=== PATIENT | male | born 1990 | race Caucasian/White ===

== ENCOUNTER 2021-05-23 20:52 | Emergency (ER) | payer MEDICAID, SELFPAY ==
[2021-05-23 20:54] VITALS: BP 135/84; PULSE 79; RESP 16; TEMP 36.6; O2SAT 98; BMI 31.4
[2021-05-23 21:25] LABS: Amphetamine Screen Urine Not Detected (Not Detect); Barbiturates, Urine Not Detected (Not Detect); Benzodiazepines Screen Urine Not Detected (Not Detect); Cannabinoid Screen Urine POSITIVE (Not Detect); Cocaine Screen Urine POSITIVE (Not Detect); Fentanyl, urine POSITIVE (Not Detect); Opiate Screen Urine Not Detected (Not Detect); Phencyclidine Screen Urine Not Detected (Not Detect)
--- NOTE | 2021-05-23 22:16 | PC.NURSE ---
2215 CALLED NOT IN MWR.
--- NOTE | 2021-05-23 23:55 | PC.NURSE ---
PT WAS CALLED EARLIER X3. PT NOT IN MWR. PT RECALLED AND PT SLEEPING IN CHAIR. THIS NURSE WALKED UP TO PATIENT CALLED HIM IN A LOUD VOICE SEVERAL TIMES. PT DID NOT WAKE UP. TAPPED PT FOOT AND CALLED HIM, PT DID WAKE UP. PT AMB TO [facility] WITH STEADY GAIT. RESP UNLABORED. PT STATES IN PROGRAM AND TESTED POSITIVE FOR SEVERAL DRUGS. PT DENIES TAKING ANYTHING BUT MARIJUANA. STATES IS IN RESIDENTIAL PROGRAM [facility].
--- NOTE | 2021-05-24 00:05 | ED.MEDCLEAR ---
HPI - Medical Clearance General Chief complaint: Medical Clearance Stated complaint: Medical Clearance Time Seen by Provider: 05/23/21 22:05 Source: patient Mode of arrival: ambulatory Limitations: no limitations History of Present Illness HPI Narrative: 31-year-old male came in for medical clearance. Patient currently lives in an post incarceration residential program, patient admitted that he smoked marijuana with his friend, when they did a urine testing at the program they found him positive for multiple substances and the ask him to come to the hospital for medical clearance. Patient otherwise has no symptoms. Related Information Allergies Allergy/AdvReac Type Severity Reaction Status Date / Time No Known Allergies Allergy Unverified 01/31/20 16:09 Review of Systems Review of Systems: All other systems are reviewed and are negative Constitutional: Reports as per HPI and Reports no additional constitutional complaints Eyes: Reports as per HPI and Reports no additional eye complaints Reports system reviewed and no additional complaints, except as documented Cardiovascular: Reports as per HPI and Reports no additional cardiovascular complaints Respiratory: Reports as per HPI and Reports no additional respiratory complaints Gastrointestinal: Reports as per HPI and Reports no additional gastrointestinal complaints Genitourinary: Reports no additional female genitourinary complaints Musculoskeletal: Reports no additional musculoskeletal complaints Skin/Breast: Reports system reviewed and no additional complaints, except as docu Psychiatric: Reports no additional psychiatric complaints Endocrine: Reports no additional endocrine complaints Hematologic/Lymphatic: Reports no additional hematologic/lymphatic complaints Allergic/Immunologic: Reports no additional allergic/immunologic complaints Reports system reviewed and no additional complaints, except as documented and Reports Abnormal speech present [facility] Past Medical History Medical History (Updated 05/24/21 @ 00:11 by Torsten Tabares MD) Drug abuse Social History Social History Advance Directives: No Advance Directives Information Provided: No Physical Exam Vital Signs: Vital Signs: Last Vital Signs Temp 97.9 F 05/23/21 20:54 Pulse 79 05/23/21 20:54 Resp 16 05/23/21 20:54 BP 135/84 05/23/21 20:54 Pulse Ox 98 05/23/21 20:54 BMI result Body Mass Index 31.4 Vital signs have been reviewed as appeared to be correct. Blood pressure normal. Heart rate normal. Respiration rate normal. Temperature normal. Oxygen saturation normal. Appearance: Alert. Oriented X3. No acute distress. Head: Normal external exam. Normocephalic. Atraumatic. No Andrade signs noted. No raccoon eyes noted Eyes: PERRLA. EOMI. Conjunctiva and sclera normal. Eyelids normal. ENT: TM's Normal. Pharynx normal. Uvula midline. Moist mucous membranes. No trismus noted. No drooling noted. No muffled voice noted. Neck: Normal inspection. Neck supple. FROM. No adenopathy. Thyroid Normal. No meningeal signs. No neck mass noted. CVS: Normal heart rate and rhythm. Heart sound normal. No murmurs noted. Pulses normal throughout. Respiratory: No respiratory distress. Painless inspiration. Breath sounds normal. No wheezes/rales/rhonchi noted. Chest nontender. No accessory muscle usage noted or decreased air movement noted. Abdomen: Soft and nontender. Bowel sounds normal in all 4 quadrants. No distention noted. No organomegaly noted. No visible injury noted. Back: No CVA tenderness. Full range of motion noted. Skin: Skin warm and dry. Normal skin color. Normal skin turgor. No rashes/lesions/lacerations noted. Extremities: No lower extremity edema. Extremities exhibit normal range of motion. Extremities nontender. Neuro: Oriented X 3. Cranial nerve exam: II-XII are grossly intact No motor deficit. No sensory deficit. Reflexes normal. Course Course Course Narrative: Assessment and plan. 31-year-old male here for medical clearance, unfortunately urine toxicology is positive for fentanyl, cocaine, cannabinoids. MDM - Medical Clearance Lab Data Attestation: I reviewed the patient's lab results. Labs: Lab Results 05/23/21 Range/Units 21:04 Urine Opiates Screen Not Detected (Not Detect) Urine Fentanyl Screen POSITIVE H (Not Detect) Ur Barbiturates Screen Not Detected (Not Detect) Ur Phencyclidine Scrn Not Detected (Not Detect) Ur Amphetamines Screen Not Detected (Not Detect) U Benzodiazepines Scrn Not Detected (Not Detect) Urine Cocaine Screen POSITIVE H (Not Detect) U Marijuana (THC) Screen POSITIVE H (Not Detect) Discharge Plan Discharge Clinical Impression: Substance abuse Patient Disposition: Home, Self-Care Instructions: Polysubstance Abuse (ED) Referrals: [facility] [Primary Care Provider] - 2 days
== END 2021-05-24 00:34 | disposition home or self-care (01) ==
PROVIDERS: Emergency Provider Emergency Medicine
DX: Z02.83 Encounter for blood-alcohol and blood-drug test (principal); R78.2 Finding of cocaine in blood; R78.5 Finding of other psychotropic drug in blood
CPT/HCPCS: 80307; 99283; 99284

== ENCOUNTER 2021-07-14 07:36 | Emergency (ER) | payer MEDICAID, SELFPAY ==
[2021-07-14 07:58] VITALS: BP 140/80; PULSE 54; RESP 18; TEMP 37; O2SAT 98; BMI 31.1
--- NOTE | 2021-07-14 08:30 | ED.BACK ---
HPI - Back Pain/Injury General Chief Complaint: Back Pain/Injury Stated Complaint: lower back pain/ diff breathing Time Seen by Provider: 07/14/21 08:30 Source: patient Mode of arrival: ambulatory Limitations: no limitations History of Present Illness HPI Narrative: 31 y/o male presents to the ER with right sided low back pain for the last 2 days after he did heavy lifting at work. 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 He reports pain started after lifting and twisting heavy material. He has had pain with movement since. No radiation of the pain. No numbness, weakness, tingling. No urinary or bowel incontinence. MD elicited complaint: back pain and back injury Onset (ago): day(s) (2) Timing: constant Severity: moderate Similar Symptoms Previously: No Quality: aching and spasming Location: right lower back Radiation: none Exacerbating factors: movement and coughing/sneezing Relieving factors: immobilization Context: while lifting and turning/twisting Associated symptoms: denies other symptoms Work related injury: Yes Related Data Previous Rx's Medication Instructions Recorded cyclobenzaprine 10 mg tablet 10 mg PO TID PRN #10 tab 07/14/21 lidocaine 5 % topical patch 1 patch TOPICAL DAILY #15 ea 07/14/21 naproxen 500 mg tablet 500 mg PO BID PRN #20 tab 07/14/21 Allergies Allergy/AdvReac Type Severity Reaction Status Date / Time No Known Allergies Allergy Verified 07/14/21 07:58 Review of Systems Review of Systems: Constitutional: No Fever, No Chills Cardiovascular: No Chest Pain, No SOB Gastrointestinal: No Nausea, No Vomiting, No abdominal Pain Genitourinary: No urinary incontinence Musculoskeletal: No joint pain, +Myalgias Skin: No Skin Lesions, No rash Neuro: No Weakness, No Numbness Heme/Lymph: No Bruising PMFSH Past Medical History Medical History (Updated 07/14/21 @ 08:30 by ZHEN Vela) Drug abuse Social History Social History Advance Directives: No Advance Directives Information Provided: No Physical Exam Vital Signs: Vital Signs: Last Vital Signs Temp 98.6 F 07/14/21 07:58 Pulse 54 07/14/21 07:58 Resp 18 07/14/21 07:58 BP 140/80 H 07/14/21 07:58 Pulse Ox 98 07/14/21 07:58 BMI result Body Mass Index 31.1 Appearance: Alert. Oriented X3. No acute distress. HEENT: normal inspection CVS: Normal heart rate and rhythm. Pulses normal. Respiratory: No respiratory distress. Skin: Skin warm and dry. Normal skin color. Normal skin turgor. No rashes. Back: right lower and middle lumbar soft tissue tenderness, no midline tenderness. negative straight leg raise test. Extremities: atraumatic x4, normal inspection Neuro: Oriented X 3. No motor deficit. No sensory deficit. Ambulates with slow but steady gait Course Course Course Narrative: 31 yo male presenting with right lower back pain after heavy lifting and twisting at work 2 days ago. No red flag symptoms of LBP. Exam consistent with lumbar strain. Will treat with NSAID, muscle relaxer and lidoderm. Work note provided per request. Stable for d/c home with supportive care. Discharge Plan Discharge Clinical Impression: Strain of lumbar region Patient Disposition: Home, Self-Care Instructions: Low Back Strain (ED), Lower Back Exercises (ED) Additional Instructions: Your pain is due to muscle strain and spasm. Rest. No strenuous activity. No bending, lifting or twisting. Use ice several times per day for 20 minutes at a time for the next 48 hours and then change to heat. Take medications as prescribed to help with pain and discomfort. Follow up with your Primary Care Doctor this week. If your pain worsens, if you develop new numbness, tingling, weakness, loss of function or incontinence call 911 or come back to the ER right away for evaluation. Prescriptions: New cyclobenzaprine 10 mg tablet 10 mg PO TID PRN (Reason: muscle spasm) Qty: 10 0RF lidocaine 5 % adhesive patch,medicated 1 patch topical DAILY Qty: 15 0RF Rx Instructions: leave on most painful area for up to 12 hrs naproxen 500 mg tablet 500 mg PO BID PRN (Reason: pain) Qty: 20 0RF Referrals: [facility] [Provider Group] - 3 days Stand Alone Forms: Work/School Release
== END 2021-07-14 08:53 | disposition home or self-care (01) ==
PROVIDERS: Emergency Provider Emergency Medicine
DX: S39.012A Strain of muscle, fascia and tendon of lower back, initial encounter (principal); R06.02 Shortness of breath; X50.0XXA Overexertion from strenuous movement or load, initial encounter; X50.3XXA Overexertion from repetitive movements, initial encounter; Y93.9 Activity, unspecified; Y92.9 Unspecified place or not applicable; Y99.0 Civilian activity done for income or pay; Z79.899 Other long term (current) drug therapy
CPT/HCPCS: 99282; 99283

== ENCOUNTER 2023-02-11 14:47 | Outpatient (REF) | payer OTHER, SELFPAY ==
[2023-02-11 17:41] LABS: Estimated Average Glucose 100 mg/dL; Hemoglobin A1c % 5.1 % (<6.0)
[2023-02-11 19:31] LABS: Anion Gap 18 (12-20); Blood Urea Nitrogen 9 mg/dL (9-16); Calcium 9.5 mg/dL (8.4-10.2); Carbon Dioxide 21 mmol/L (22-29); Chloride 106 mmol/L (96-108); Cholesterol 151 mg/dL (<200); Estimated Glomerular Filt Rate > 60; HDL Cholesterol 40 mg/dL (>40); LDL Cholesterol Calculated 61 mg/dL (<100); Potassium 3.5 mmol/L (3.3-5.1); Sodium 141 mmol/L (135-145); Triglycerides 253 mg/dL (<150)
[2023-02-11 19:38] LABS: Glucose Fasting 40 mg/dL (60-99)
[2023-02-11 19:39] LABS: TSH reflex Free T4 1.01 uIU/mL (0.32-4.0)
[2023-02-12 03:29] LABS: Syphilis Screen Nonreactive (Nonreactive)
[2023-02-12 03:35] LABS: HBc Num1 0.61 S/CO (0.00-0.79); HBsAGNum1 0.37 S/CO (0.00-0.99); Hepatitis B Core Antibody Nonreactive (Nonreactive); Hepatitis B Surface Antigen Negative (Negative)
[2023-02-12 04:53] LABS: CT PCR NOT DETECTED (Not Detect.); NG PCR NOT DETECTED (Not Detect.)
== END 2023-02-11 14:48 | disposition home or self-care (01) ==
LOC: HO.CHCLDS 14:47
PROVIDERS: Visit Provider Family Medicine
DX: R42 Dizziness and giddiness (principal); E66.9 Obesity, unspecified; Z11.3 Encounter for screening for infections with a predominantly sexual mode of transmission
CPT/HCPCS: 0353U; 80048; 80061; 83036; 84443; 86704; 86780; 87340

== ENCOUNTER → 2024-05-25 10:16 | Outpatient (BNVA) | payer SELFPAY | PROVIDERS: Visit Provider Physician Assistant | DX: Z02.79 Encounter for issue of other medical certificate (principal) ==

== ENCOUNTER 2024-07-16 09:40 | Outpatient (REF) | payer MEDICAID, SELFPAY ==
--- OUTSIDE RECORDS SUMMARY | 2024-07-16 10:47 | XMS_ITS | Encounter Summary ---
Author Organization [employer] Address [address] [place] [address] Care Team Providers Care Stock Control Clerk Name Role Phone Taylor Iglesias MD Primary Care Provider [phone] Reason for Visit * Reason Onset Date Comments Med Refill 07/11/2024 Encounter Details Date Type Department Care Team (Late st Contact Info) Description 07/11/2024 Refill [facility] [address] [place] [address] Kate Joshi, RN Opioid abuse (CMS/[facility]) Social History Tobacco Use Types Packs/Day Years Used Date Smoking Tobacco: Every Day Cigarettes Smokeless Tobacco: Never Alcohol Use Standard Drinks/Week Comments Never 0 (1 standard drink = 0.6 oz pur e alcohol) Depression Answer Date Recorded Patient Health Questionnaire-9 Score 13 05/25/2024 Patient Health Questionnaire-9 Score 13 05/25/2024 Last PHQ-9: Questionnaire Data Not on file 0 05/25/2024 Housing Stability Answer Date Recorded What is your housing situation today? I do not have housing (Staying with others, in a hotel, in a mcc, living outside on the street, on a beach, in a car, or in a park 02/21/[address] you li ve. Do you have problems with any of the following? None of the above 02/21/2023 Food Insecurity Answer Date Recorded Within the past 12 months, y ou worried that your food would run out before you got money to buy more: Often true 02/28/2023 Within the past 12 months,th e food you bought just didn't last and you didn't have enough money to get more: Often true Transportation Answer Date Recorded In the past 12 months, has l ack of transportation kept you from medical appts, meetings, work or from getting things needed for daily living? No 02/28/2023 Utilities Answer Date Recorded In the past 12 months, has t he electric, gas, oil or water company threatened to shut off services in your home? No 02/28/2023 Depression Answer Date Recorded Patient Health Questionnaire-2 Score 2 05/25/2024 Sex and Gender Information Value Date Recorded Sex Assigned at Male 03/15/2022 10:22 AM EDT Legal Sex Male 10:22 AM EDT Gender Identity Male 08/08/2023 8:50 AM EDT Sexual Orientation Straight 08/08/2023 8: 50 AM EDT documented as of this encounter Plan of Treatment Upcoming Encounters Date Type Department Care Team (Late st Contact Info) Description 07/27/2024 11:15 AM EDT Telemedicine [facility] [address] [place] [phone] Name, MD Jamie [address] [place] [phone] 09/10/2024 9:00 AM EDT Office Visit [facility] [address] [place] [address] Javy Dennis MD [address] [place] [phone] documented as of this encounter Visit Diagnoses Diagnosis Opioid abuse (CMS/HCC) Nondependent opioid abuse, unspecified documented in this encounter Additional Health Concerns Assessment Noted Time PHQ-9 Depression Total Score: 13 025 9:35 AM EST documented as of this encounter Care Teams Stock Control Clerk Relationship Specialty Start Date End Date Taylor Iglesias MD [address] [place] [phone] PCP - General Family Medicine 12/29/22 documented as of this encounter
--- OUTSIDE RECORDS SUMMARY | 2024-07-16 10:47 | XMS_ITS | Encounter Summary ---
Author Organization [employer] Address [address] [place] [address] Care Team Providers Care Fan Runner Name Role Phone Taylor Iglesias MD Primary Care Provider [phone] Encounter Details Date Type Department Care Team (Latest Contact Info) Description 07/16/2024 Travel Social History Tobacco Use Types Packs/Day Years [...] with others, in a hotel, in a fci, living outside on the street, on a [...] Info) Description 07/27/2024 11:15 AM EDT Telemedicine [facility] [address] [place] [phone] Name, MD Jamie [address] [place] [phone] 09/10/2024 9:00 AM EDT Office Visit [facility] [address] [place] [address] Javy Dennis MD [address] [place] [phone] documented as of this encounter Visit Diagnoses Not on filedocumented in this encounter Additional Health Concerns Assessment Noted Time PHQ-9 Depression Total Score: 13 025 9:35 AM EST documented as of this encounter Care Teams Fan Runner Relationship Specialty Start Date End Date Taylor Iglesias MD [address] [place] [phone] PCP - General Family Medicine 12/29/22 documented as of this encounter
--- OUTSIDE RECORDS SUMMARY | 2024-07-16 10:47 | XMS_ITS | Encounter Summary ---
Author Organization [employer] Address [address] [place] [address] Care Team Providers Care Gas Utility Worker Name Role Phone Taylor Iglesias MD Primary Care Provider [phone] Reason for Visit * Reason Comments OBAT F/U Encounter Details Date Type Department Care Team ([facility] st Contact Info) Description 07/16/2024 9:00 AM EST Office Visit [facility] [address] [place] [address] Javy Dennis MD [address] [place] [id number] Opioid type dependence, continuous (CMS/HCC) (Primary Dx) Social History Tobacco Use Types Packs/Day Years [...] with others, in a hotel, in a jail, living outside on the street, on a [...] AM EDT documented as of this encounter Progress Notes * Javy Dennis MD - 07/16/2024 9:00 AM EST Patient here today for Opioid Dependence RV Patient on current Suboxone dose of 16/4mg on a 8-week schedule Patient reports taking medication as prescribed, no cravings or adverse effects Pt has been in the program for 3 years 4 months. Induction date: 03/16/2021 PCP appt 02/08/23. 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 Met with today Started a GED program; will also pursue CDL Has two children Chrisitan (1 year) and Jamie (2 years) Suboxone dosing schedule of 16/4mg daily and management of side effects reviewed Recovery support, harm reduction, and behavioral health attendance reviewed Patient expressed understanding and agreement with continuing plan of care TODAY OBAT VISIT 07/16/2024 UTOX: POS BUP, THC NEG FOR ALL OTHER SUBSTANCES Patient presents for OUD OBAT appointment Overall doing well since his detox in 08/2021 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 The patient is not nervous/anxious. Physical Exam Constitutional: Appearance: Normal appearance. Pulmonary: Effort: Pulmonary effort is normal. Neurological: Mental Status: He is alert. Psychiatric: Mood and Affect: Mood normal. Behavior: Behavior normal. Porter was seen today for obat f/u . Diagnoses and all orders for this visit: Opioid type dependence, continuous (CMS/[facility]) (Primary) - POCT MIN-14 Urine Drug Screen Patient presents for a routine OUD OBAT visit Discussed treatment options for opioid dependence Patient is tolerating current treatment of Buprenorphine/Naloxone SL Discussed behavioral modification and accessing services Counseling provided with a focus on support system, tools for achieving/maintaining recovery Reviewed barriers for these goals Discussed strategies to address when faced situations that may trigger use Continue with current visit schedule Narcan use discussed Mass[place]MP reviewed Met with today Reviewed risk assessment for family planning, STI and PrEP Follow up in 8 weeks This information has been disclosed to you from records protected by federal confidentiality rules (42 CFR Part 2). The federal rules prohibit you from making any further disclosure of information inthis record that identifies a patient as having or having had a substance use disorder either directly, by reference to publicly available information, or through verification of such identification by another person unless further disclosure is expressly permitted by the written consent of the individual whose information is being disclosed or as otherwise permitted by (see2.3.1). The federal rules restrict any use of the information to investigate or prosecute with regard to a crime any patient with a substance use disorder, except as provided at 2.12??(5) and 2.65. documented in this encounter Plan of Treatment Upcoming Encounters Date Type Department Care Team (Late st Contact Info) Description 07/27/2024 11:15 AM EDT Telemedicine [facility] [address] [place] [address] Name, MD Jamie [address] [place] [address] 09/10/2024 9:00 AM EDT Office Visit [facility] [address] [place] [address] Javy Dennis MD [address] [place] [address] documented as of this encounter Procedures Procedure Name Priority Date/Time Associated Diagnosis Comments POCT MIN-14 URINE DRUG SCREEN Routine 07/16/2024 9:17 AM EST Opioid type dependence, continuous (CMS/HCC) documented in this encounter Results * POCT MIN-14 Urine Drug Screen (07/16/2024 9:17 AM EST) THC Positive Cocaine Screen, Urine Negative Opiate Screen, Urine Negative Methamphetamine Screen Urine Negative Amphetamine Screen, Urine Negative Benzodiazepines Screen, Urine Negative Barbiturate Screen, Urine Negative Methadone Screen, Urine Negative Buprenophine Screen, Urine Positive TCA, Urine Negative MDMA Urine Negative ng/mL Oxycodone Screen, Urine Negative Phencyclidine (PCP), Urine Negative Propoxyphene, Urine Negative Urine Urine specimen obtained by clean catch procedure / Unknown 07/16/2024 9:17 AM EST us Javy Dennis MD POINT OF CARE TEST ENTER/EDIT OR DERABLES Final Result documented in this encounter Visit Diagnoses Diagnosis Opioid type dependence, continuous (CMS/HCC)- Primary Opioid type dependence, continuous documented in this encounter Additional Health Concerns Assessment Noted Time PHQ-9 Depression Total Score: 13 01/2 025 9:35 AM EST documented as of this encounter Care Teams Gas Utility Worker Relationship Specialty Start Date End Date Taylor Iglesias MD [address] [place] [phone] PCP - General Family Medicine 12/29/22 documented as of this encounter
--- OUTSIDE RECORDS SUMMARY | 2024-07-16 10:48 | XMS_ITS | Encounter Summary ---
Author Organization [employer] Address [address] [place] [address] Care Team Providers Care Wet Char Conveyor Tender Name Role Phone Taylor Iglesias MD Primary Care Provider [phone] Reason for Referral * Neurology (Routine) - Authorized Specialty Diagnoses / Procedures Referred By Contac t Referred To Contact Diagnoses Right hand paresthesia Left hand pain Procedures Nerve conduction test NameJamie MD [address] [place] [address] Phone: tel: fax: [address] Phone: tel: fax: Referral ID Status Reason Start Date Expiration Date V isits Requested Visits Authorized [id number] Authorized 07/09/2024 07/09/2025 1 1 Reason for Visit * Reason Comments hand pain and paresthesia Encounter Details Date Type Department Care Team (Late st Contact Info) Description 07/09/2024 1:15 PM EST Office Visit [facility] [address] [place] [address] [phone] Name, MD Jamie [address] [place] [address] [phone] Right hand paresthesia; Left hand pain Social History Tobacco Use Types Packs/Day Years [...] with others, in a hotel, in a senior living, living outside on the street, on a [...] AM EDT documented as of this encounter Last Filed Vital Signs Vital Sign Reading Time Taken Comments Blood Pressure 142/76 07/09/2024 1:19 PM EST Pulse 77 07/09/2024 1:19 PM EST Temperature 36.4 ??C (97.5 ??F) 07/09/2024 1:19 PM ES T Respiratory Rate 18 07/09/2024 1:19 PM EST Oxygen Saturation 98% 07/09/2024 1:19 PM EST Inhaled Oxygen Concentration - - Weight 108 kg (237 lb 3.2 oz) 07/09/2024 1:19 PM EST Height - - Body Mass Index 32.17 03/20/2024 1:53 PM EST documented in this encounter Progress Notes * Jamie Charlton MD - 07/09/2024 1:15 PM EST Subjective Patient ID: Porter Hinton is a 34 y.o. male who presents for hand pain and paresthesia. Patient comes complaining of bilateral hand pain and paresthesias. Symptoms are worse in the right hand. There is no history of trauma. He was recently evaluated at urgent care facility with x-rays of the right hand that were normal. He was prescribed NSAIDs without any symptomatic improvement. Symptoms are exacerbated by movements of the right hand. Review of Systems Constitutional: Negative for chills, fatigue and fever. HENT: Negative for sore throat. Respiratory: Negative for cough, chest tightness and shortness of breath. Cardiovascular: Negative for chest pain, palpitations and leg swelling. Gastrointestinal: Negative for abdominal pain and blood in stool. Musculoskeletal: See HPI Visit Vitals BP (!) 142/76 Pulse 77 Temp 97.5 ??F (36.4 ??C) (Temporal) Resp 18 Wt 237 lb 3.2 oz (108 kg) SpO2 98% BMI 32.17 kg/m?? Smoking Status Every Day BSA 2.34 m?? Objective Physical Exam Constitutional: General: He is not in acute distress. Appearance: He is not toxic-appearing. Cardiovascular: Rate and Rhythm: Normal rate and regular rhythm. Pulmonary: Effort: Pulmonary effort is normal. No respiratory distress. Musculoskeletal: Comments: Phalen's test is positive in both wrists. Assessment/Plan Diagnoses and all orders for this visit: Right hand paresthesia Comments: I suspect symptoms are secondary to carpal tunnel syndrome. I will refer the patient to nerve conduction study. Further recommendation based on the results. Left hand pain documented in this encounter Plan of Treatment Upcoming Encounters Date Type Department Care Team (Late st Contact Info) Description 07/27/2024 11:15 AM EDT Telemedicine [facility] MED[facility]INE [address] [place] [address] Name, MD Jamie [address] [place] [address] 09/10/2024 9:00 AM EDT Office Visit [facility] [address] [place] [address] Javy Dennis MD [address] [place] [address] Scheduled Orders Name Type Priority Associated Diagnoses Orde r Schedule Nerve conduction test Neurology Routine Right hand paresthesia Left hand pain Expected: 07/09/2024 (Approximate), Expires: 07/09/2025 documented as of this encounter Visit Diagnoses Diagnosis Right hand paresthesia Disturbance of skin sensation Left hand pain Pain in soft tissues of limb documented in this encounter Additional Health Concerns Assessment Noted Time PHQ-9 Depression Total Score: 13 025 9:35 AM EST documented as of this encounter Care Teams Wet Char Conveyor Tender Relationship Specialty Start Date End Date Taylor Iglesias MD [address] [place] [address] PCP - General Family Medicine 12/29/22 documented as of this encounter
--- OUTSIDE RECORDS SUMMARY | 2024-07-16 10:48 | XMS_ITS | Clinical Summary ---
Author Organization [employer] Address [address] [place] [address] Care Team Providers Care Card Filer Name Role Phone Taylor Iglesias MD Primary Care Provider [phone] Allergies No known active allergies Medications * This document contains information received from the source organization and may not represent a complete record from that organization. naloxone (Narcan) 4 mg/0.1 mL nasal spray Administer 0.1 mL into affected nostril(s). 021 Active docusate sodium (Colace) 100 MG capsule Take 100 mg by mouth if needed for constipation. Active ciclopirox (Penlac) 8 % solution Apply topically at bedtime. 6 mL 3 023 Active cyclobenzaprin e (Flexeril) 10 MG tablet Take 1 tablet (10 mg) by mouth if needed at bedtime for muscle spasms. 30 tablet 3 023 Active Blood Pressure Monitor kit Check blood pressure once daily and as needed 1 kit 023 Active hydrocortisone (Anusol-HC) 25 MG suppository Insert once or twice daily. Do not use longer than 1 week. 12 suppository 023 Active Diclofenac Sodium 1 % gel Apply to affected area once or twice daily as needed for pain 150 g 3 024 Active albuterol (ProAir HFA) 108 (90 Base) MCG/ACT inhaler Inhale 2 puffs every 4 (four) hours. 18 g 1 024 Active amphetamine-de xtroamphetamin e XR (Adderall XR) 10 MG 24 hr capsule Take 1 capsule (10 mg) by mouth in the morning. Do not crush or chew. 30 capsule Active cetirizine (ZyrTEC) 10 MG tablet Take 1 tablet (10 mg) by mouth Once per day. 90 tablet 3 Active fluticasone (Flonase) 50 MCG/ACT nasal spray Administer 1-2 sprays into each nostril Once per day. Shake gently. Before first use, prime pump. After use, clean tip and replace cap. 16 g 2 024 2024 Active Suboxone 8-2 MG SL filmIndication s:Opioid abuse (CMS/HCC) Place 2 Film under the tongue Once per day. Do not start before July 16, 2024. 56 Film 1 025 2024 Active Suboxone 8-2 MG SL filmIndication s:Opioid abuse (CMS/HCC) Place 2 Film under the tongue Once per day. 56 Film 1 024 2024 Discontinued(R eorder (will not trigger notification to Pharmacy)) Active Problems Problem Noted Date Diagnosed Date Current moderate episode of major depressive disorder without prior episode 05/25/2024 Elevated blood pressure read ing in office without diagnosis of hypertension 03/01/2023 Assessment & Plan (08/26/2023 11:26 AM EDT): -Goal BP < 140/90 per JNC-8 and < 130/80 per ACC/AHA guideline (Treatment threshold >= 140/90 ) -Borderline BP -Continue working on lifestyle modifications -Recommended self-monitoring BP. -Follow up in 6 mo, sooner if any problem arises Assessment & Plan (03/03/2023 5:04 AM EDT): -Goal BP < 140/90 per JNC-8 and < 130/80 per ACC/AHA guideline (Treatment threshold >= 140/90 ) -2nd check was normal -Continue working on lifestyle modifications -Recommended self-monitoring BP. -Follow up in 6 mo, sooner if any problem arises Attention deficit hyperactiv ity disorder (ADHD), predominantly inattentive type 02/14/2023 Assessment & Plan (03/25/2024 6:45 PM EST): - check the status of Adderall, whether patient needs a PA Assessment & Plan (08/26/2023 11:27 AM EDT): - check the status of Adderall, whether patient needs a PA Assessment & Plan (03/03/2023 5:06 AM EDT): - agreed to restart stimulant - Rx Adderall XR 10 mg daily, consider titration to effective dose - Advised to take after meal to avoid poor PO intake and another hypoglycemic episode Assessment & Plan (02/14/2023 4:13 AM EDT): - Hx of ADHD Tx with Concerta - Will discuss with OBAT team about pharmacological treatment for Concerta - Consider referring Jim since pt has both EVGENY and Concerta Obesity 02/14/2023 EVGENY (generalized anxiety disorder) 01/04/2023 Assessment & Plan (03/25/2024 6:44 PM EST): - continue working with Chris Chi - consider trying medication for ADHD Assessment & Plan (02/14/2023 4:11 AM EDT): - continue working with Chris Chi - consider trying medication for ADHD Assessment & Plan (01/04/2023 9:32 AM EDT): Assessment: Patient with raising thought, irritability, fearfulness, muscle tension, sleep disturbance, headaches, persistent worry, restlessness, and indecisiveness. 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 Patient will benefit from keeping connecting with - and IB follow up for support. At this time Porter Hinton meets criteria for Visit Diagnoses: Problem List Items Addressed This Visit Other Opioid abuse, in remission ([facility]/HCC) EVGENY (generalized anxiety disorder) Patient ready to address current needs Yes Strengths include willing to seek support PLAN: 1. Follow up with [facility]: Recommended for follow-up: during OBAT appts 2. Patient goal is to improve mental health and functioning 3. Behavioral Recommendations a. Connecting with [facility] b. [facility] follow up c. Use of coping skills provided Mild intermittent asthma 04/23/2022 Assessment & Plan (08/26/2023 11:25 AM EDT): Continue albuterol prn Assessment & Plan (02/08/2023 11:12 AM EDT): Continue albuterol prn History of smoking 04/24/2021 Assessment & Plan (03/25/2024 6:44 PM EST): - currently E-cigarettes - discussed that E-cigarettes are shown to be harmful as well; pt is aware and is trying to reduce its use Assessment & Plan (02/14/2023 4:10 AM EDT): - currently E-cigarettes - discussed that E-cigarettes are shown to be harmful as well; pt is aware and is trying to reduce its use Uncomplicated opioid dependence 04/24/2021 Assessment & Plan (03/25/2024 6:44 PM EST): - continue OBAT with Dr. Dennis and CRS team in [place] Assessment & Plan (08/26/2023 11:27 AM EDT): - continue OBAT with Dr. Dennis and CRS team in [place] Assessment & Plan (03/03/2023 5:05 AM EDT): - continue OBAT with Dr. Dennis and CRS team in [place] Assessment & Plan (01/04/2023 9:32 AM EDT): Assessment: Patient with raising thought, irritability, fearfulness, muscle tension, sleep disturbance, headaches, persistent worry, restlessness, and indecisiveness. 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 Patient will benefit from keeping connecting with [facility] and [facility] follow up for support. At this time Porter Hinton meets criteria for Visit Diagnoses: Problem List Items Addressed This Visit Other Opioid abuse, in remission (CMS/[facility]) EVGENY (generalized anxiety disorder) Patient ready to address current needs Yes Strengths include willing to seek support PLAN: 1. Follow up with [facility]: Recommended for follow-up: during OBAT appts 2. Patient goal is to improve mental health and functioning 3. Behavioral Recommendations a. Connecting with [facility] b. [facility] follow up c. Use of coping skills provided Chronic low back pain 04/24/2021 Assessment & Plan (02/08/2023 11:07 AM EDT): -Continue chiropractic treatment -Rx Muscle relaxant Encounters * This document contains information received from the source organization and may not represent a complete record from that organization. Date Type Department Care Team Description 07/16/2024 9:00 AM EST Office Visit [facility] & PEDS [address] [place] [address] Javy Dennis MD Opioid type dependence, continuous (CMS/HCC) (Primary Dx) 07/16/2024 Travel 07/11/[address] [address] Kate Joshi RN Opioid abuse ([facility]) 07/09/2024 1:15 PM EST Office Visit [address] [phone] Jamie Charlton MD Right hand paresthesia; Left hand pain 07/09/2024 Travel 07/09/[address] [address] Taylor Iglesias MD Nurse Triage 06/28/[address] [phone] Renay Renteria MA chart prep 06/18/2024 Patient Outreach [address] [phone] Dejan Fuentes Recovery Supports 06/11/2024 Patient Outreach [address] [address] Dejan Fuentes [facility] 06/08/2024 Patient Outreach [facility] [address] [place] [phone] Dejan Fuentes Recovery Supports 06/06/2024 Patient Outreach [facility] [address] [place] [phone] Dejan Fuentes Recovery Supports 05/28/2024 Patient Outreach [facility] [address] [place] [phone] Dejan Fuentes Recovery [facility] 05/28/2024 Telephone [facility] [address] [place], [place] [phone] Javy Dennis MD 05/21/2024 9:00 AM EST Office Visit [facility] [address] [place], [place] [phone] Jayv Dennis MD Opioid type dependence, continuous (CMS/HCC) (Primary Dx) 05/21/2024 Patient Outreach [facility] [address] [place] [phone] Dejan Fuentes [facility] 05/21/2024 Travel 05/14/2024 Refill [facility] [address] [place] [address] Fabrizio Jewell RN Opioid abuse ([facility]) from Last 3 Months Immunizations Name Administration Dates Next Due Hep A, Adult 02/08/2023,2021 Hep B, adult 08/09/2023,03/08/2023,02/08/2023 Influenza injectable quadriv alent preservative free 02/07/2023,03/15/2022,04/24/2021 Influenza, seasonal, injecta ble, preservative free 03/20/2024 Moderna Covid-19 Vaccine 12+ 11/03/2021,01/21/20 21,12/09/2020 Tdap 04/24/2021 Family History Medical History Relation Name Comments Addiction problem Brother Asthma Brother Asthma Mother Stroke Mother Asthma Sister Relation Name Status Comments Brother Mother Sister Social History Tobacco Use Types Packs/Day Years Used Date Smoking Tobacco: Every Day Cigarettes Smokeless Tobacco: Never Tobacco Cessation:Ready to Q uit: Not Asked; Counseling Given: Not Answered Alcohol Use Standard Drinks/Week Comments Never 0 [...] with others, in a hotel, in a halfway, living outside on the street, on a [...] Orientation Straight 08/08/2023 8: 50 AM EDT Last Filed Vital Signs Vital Sign Reading [...] 3.2 oz) 07/09/2024 1:19 PM EST Height 182.9 cm (6') 03/20/2024 1:53 PM EST Body Mass Index 32.17 03/20/2024 1:53 PM EST Plan of Treatment Upcoming Encounters Date Type Department Care Team (Late st Contact Info) Description 07/27/2024 11:15 AM EDT Telemedicine [facility] [address] [place], [place] [phone] Name, MD Jamie [address] [place], [place] [phone] 09/10/2024 9:00 AM EDT Office Visit [facility] [address] [place], [place] [phone] Javy Dennis MD [address] [place], [place] [phone] Health Maintenance Due Date Last Done Comments Alcohol/Substance Use Screening 2003 Family Planning (PISQ) 2006 Pneumococcal Vaccine: Pediatrics (0 to 5 Years) and At-Risk Patients (6 to 49) Years) (1 of 2 - PCV) 2010 COVID-19 Vaccine ( season) 2024 11/03/2021, 01/20/2021, 12/09/2020 SDOH Screening 02/02/2024 02/01/2023 Depression Monitoring (PHQ-9) 11/22/2024 05/25/2024, 05/25/2024 Tobacco Screening 03/20/2025 03/20/2024 Depression Screening 05/25/2025 05/25/2024, 05/25/19 25 Lipid Panel 02/12/2028 02/11/2023 DTaP/Tdap/Td Vaccines (2 - Td or Tdap) 04/24/2031 04/24/2021 Zoster Vaccines (1 of 2) 2041 RSV Patients and Patients Aged 60 years or older (1 - 1-dose 75+ series) 2066 HIV Screening Completed 02/20/2021 Hepatitis C Screening Completed 02/20/2021 Hepatitis A Vaccines Completed 02/08/2023, 02/28/20 21 Hepatitis B Vaccines Completed 08/09/2023, 03/08/2023, 02/08/2023 Influenza Vaccine Completed 03/20/2024, , 03/15/2022, Additional history exists HIB Vaccines Aged Out No longer eligi ble based on patient's age to complete this topic HPV Vaccines Aged Out No longer eligi ble based on patient's age to complete this topic IPV Vaccines Aged Out No longer eligi ble based on patient's age to complete this topic Meningococcal Vaccine Aged Out No ira gwen eligible based on patient's age to complete this topic RSV under 20 months Aged Out No longe r eligible based on patient's age to complete this topic Rotavirus Vaccines Aged Out No longer eligible based on patient's age to complete this topic Procedures Procedure Name Priority Date/Time Associated Diagnosis Comments POCT MIN-14 URINE DRUG SCREEN Routine 07/16/2024 9:17 AM EST Opioid type dependence, continuous (CMS/HCC) POCT MIN-14 URINE DRUG SCREEN Routine 05/21/2024 9:01 AM EST Opioid type dependence, continuous (CMS/HCC) LIPID PANEL, STANDARD Routine 02/11/2023 2:54 PM EDT Constipation, unspecified constipation type ZZZ HISTORICAL HEPATITIS C AB W/REFL TO HCV RNA, QN, PCR Routine 02/20/2021 11:05 AM EDT HIV 1/2 ANTIGEN/ANTIBODY, FOURTH GENERATION W/RFL Routine 02/20/2021 11:05 AM EDT from Last 3 Months or Most Recently Relevant to Health Maintenance Results * POCT MIN-14 Urine Drug Screen (07/16/2024 9:17 AM EST) Only the most recent of2 resultswithin the time period is included. THC Positive Cocaine Screen, Urine Negative Opiate [...] procedure / Unknown 07/16/2024 9:17 AM EST Javy Dennis MD POINT OF CARE TEST ENTER/EDIT OR DERABLES Final Result * (ABNORMAL) Lipid Panel, Standard (02/11/2023 2:54 PM EDT) Triglycerides 253(H) <150 mg/dL [facility] Comment:Desirable Triglyceri de: less than 150 mg/dLBorderline High Triglyceride 150-199 mg/dLHigh Triglyceride: 200-499 mg/dLVery High Triglyceride: greater than or equal to 5OO mg/dL Cholesterol 151 <200 mg/dL [facility] Comment:Desirable Cholestero l: less than 200 mg/dLBorderline High Cholesterol: 200-239 mg/dLHigh Cholesterol: greater than 239 mg/dL LDL Cholesterol Calculated 61 <100 mg/dL [facility] Comment:Desirable LDL: less than 100 mg/dLNear Optimal/Above Optimal LDL: 110- 129 mg/dLBorderline High LDL: 130-159 mg/dLHigh LDL: 160-189 mg/dLVery High LDL: greater than or equal to 190 mg/dL HDL Cholesterol 40(L) >40 mg/dL [facility] Comment:Desirable HDL: great er than 40 mg/dL Note: This HDL assay may give artificially low results in patients with liver disease. 02/11/2023 2:54 PM EDT 02/11/2023 5:19 PM EDT Taylor Iglesias MD LAB BLOOD ORDERABLES Final Resul t [facility] [address] [place] [phone] * (ABNORMAL) HEPATITIS C AB W/REFL TO HCV RNA, QN, PCR (02/20/2021 11:05 AM EDT) HEPATITIS C ANTIBODY REACTIVE( A) NON-REACT CORI [facility] INDEX 29.10(H) <1.00 [facility] Comment: ?? Based on this result, the sample will be tested for HCV RNA by a Nucleic Acid Amplification Test (NAAT) to determine if the patient has a current active infection. ?? 02/20/2021 11:0 5 AM EDT Romulo Amor MD HISTORICAL/NON ORDERABLE LABS Final Result Performing Organization Address [facility] de Phone Number [facility] [address] * HIV 1/2 ANTIGEN/ANTIBODY,FOURTH GENERATION W/RFL (02/20/2021 11:05 AM EDT) HIV-1/2 ANTIGEN AND ANTIBODIES, 4TH GENERATION W/ REFLEX NON-REACT CORI NON-REACT CORI [facility] Comment: HIV-1 antigen and HIV-1/HIV-2 antibodies were not detected. There is no laboratory evidence of HIV infection. ?? PLEASE NOTE: This information has been disclosed to you from records whose confidentiality may be protected by state law. ??If your state requires such protection, then the state law prohibits you from making any further disclosure of the information without the specific written consent of the person to whom it pertains, or as otherwise permitted by law. A general authorization for the release of medical or other information is NOT sufficient for this purpose. ? For additional information please refer to http://education.[employer]/faq/XSX866 (This link is being provided for informational/ educational purposes only.) ? The performance of this assay has not been clinically validated in patients less than 2 years old. ?? 02/20/2021 11:0 5 AM EDT Romulo Amor MD LAB BLOOD ORDERABLES Final Res ult Performing Organization Address [facility] Co de Phone Number [facility] [address] from Last 3 Months or Most Recently Relevant to Health Maintenance Insurance C3 Care Teams Card Filer Relationship Specialty Start Date End Date Taylor Iglesias MD [address] [place] [phone] PCP - General Family Medicine 12/29/22
--- OUTSIDE RECORDS SUMMARY | 2024-07-16 10:48 | XMS_ITS | Encounter Summary ---
Author Organization [employer] Address [address] [facility] 7t [place] [address] Care Team Providers Care Assistant Professor Of Surgery Name Role Phone Taylor Iglesias MD Primary Care Provider [phone] Reason for Visit * Reason Onset Date Comments Nurse Triage 07/09/2024 Encounter Details Date Type Department Care Team ([facility] st Contact Info) Description 07/09/2024 Telephone [facility] MEDICINE [address] [place], [place] [phone] Taylor Iglesias MD [address] [place] [address] Nurse Triage Social History Tobacco Use Types Packs/Day Years [...] with others, in a hotel, in a correction, living outside on the street, on a [...] AM EDT documented as of this encounter Miscellaneous Notes * Telephone Encounter - Madison Harper, ALEX - 07/09/2024 9:14 AM EST Triage call returned to patient who reports that he went to [facility] on [address] last Tuesday ( 8 days ago) patient with pain in wrist and numbness in last 3 fingers of right hand. Patient reports xrays done no known outcome. Has noted swelling of hand but no redness. Was prescribed motrin 800mg PRNthat has been minimally helpful. 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 Patient reports certain movements cause a shooting pain into right elbow like when you hit your funnybone . Patient confirms similar stinging pain into chest that lasts a few seconds only. No crushing or radiating pain no nausea or vomiting no neck or jaw pain. Disposition reviewed and patient in agreement with plan ASK/Name today at 13opm. Patient will call AF for xray report if available. Protocol Used: Hand Pain (Adult) Protocol-Based Disposition: See in Office or Video Visit Today or Tomorrow Positive Triage Questions: * Weakness (i.e., loss of strength) of new-onset in hand or fingers * Numbness (i.e., loss of sensation) in hand or fingers * All higher-acuity triage questions were negative Care Advice Discussed: * Pain Medicines * Reasons To Call Back - Moderate pain (such as interferes with normal activities) lasts over 3 days - Signs of infection occur (such as spreading redness, warmth, fever) - You become worse Multiple (2) protocols were used on this call. Disposition for Call: See in Office or Video Visit Today Protocol Used: Chest Pain (Adult) Protocol-Based Disposition: See in Office or Video Visit Today Video visit not offered Positive Triage Question: * Chest pain(s) lasting a few seconds persists > 3 days * All higher-acuity triage questions were negative Care Advice Discussed: * Reasons To Call Back - Chest pain lasts over 5 minutes - Difficulty breathing or unusual sweating occurs - Fever over 100.4 F (38.0 C) - You become worse Protocol Used: Hand Pain (Adult) Protocol-Based Disposition: See in Office or Video Visit Today or Tomorrow Positive Triage Questions: * Weakness (i.e., loss of strength) of new-onset in hand or fingers * Numbness (i.e., loss of sensation) in hand or fingers * All higher-acuity triage questions were negative Care Advice Discussed: * Pain Medicines * Reasons To Call Back - Moderate pain (such as interferes with normal activities) lasts over 3 days - Signs of infection occur (such as spreading redness, warmth, fever) - You become worse * Telephone Encounter - Shante Hyman - 07/09/2024 8:49 AM EST Symptom: Arm Pain - Not From Injury Outcome: Transfer to a nurse or provider NOW! Reason: Chest pain now The caller accepted this outcome. Contact pt at [phone] documented in this encounter Plan of Treatment Upcoming Encounters Date Type Department Care Team (Late st Contact Info) Description 07/27/2024 11:15 AM EDT Telemedicine [facility] MEDICINE [address] [place] [phone] Name, MD Jamie [address] [place] [address] 09/10/2024 9:00 AM EDT Office Visit [facility] CHC MED & PEDS [address] [place] [address] Javy Dennis MD [address] [place] [address] documented as of this encounter Visit Diagnoses Not on filedocumented in this encounter Additional Health Concerns Assessment Noted Time PHQ-9 Depression Total Score: 13 025 9:35 AM EST documented as of this encounter Care Teams Assistant Professor Of Surgery Relationship Specialty Start Date End Date Taylor Iglesias MD [address] [place] [phone] PCP - General Family Medicine 12/29/22 documented as of this encounter
--- OUTSIDE RECORDS SUMMARY | 2024-07-16 10:48 | XMS_ITS | Encounter Summary ---
Author Organization [employer] Address [address] [facility] 7t [place] [address] Care Team Providers Care Patient Clerical Assistant Name Role Phone Taylor Iglesias MD Primary Care Provider [phone] Reason for Visit * Reason Comments Med Refill Encounter Details Date Type Department Care Team ([facility] Contact Info) Description 04/14/2023 Refill [facility] MED[facility]INE [address] [place], [place] [phone] Taylor Iglesias MD [address] [place], [place] [phone] Social History Tobacco Use Types Packs/Day Years Used Date Smoking Tobacco: Never Smokeless Tobacco: Never Depression Answer Date Recorded Patient Health Questionnaire-9 Score 4 01/04/2023 Housing Stability Answer Date Recorded What is your housing situation today? I do not have housing (Staying with others, in a hotel, in a skilled nursing, living outside on the street, on a [...] Answer Date Recorded Patient Health Questionnaire-2 Score 0 01/04/2023 Sex and Gender Information Value Date Recorded Sex Assigned at Male 03/15/2022 10:22 AM EDT Legal Sex Male 10:22 AM EDT Gender Identity Male 08/08/2023 8:50 AM EDT Sexual Orientation Straight 08/08/2023 8: 50 AM EDT documented as of this encounter Plan of Treatment Upcoming Encounters Date Type Department Care Team (Late st Contact Info) Description 07/27/2024 11:15 AM EDT Telemedicine [facility] MEDICINE [address] [place] [address] Name, MD Jamie [address] [place] [address] 09/10/2024 9:00 AM EDT Office Visit [facility] CH[facility] MED & PEDS [address] [place] [address] Javy Dennis MD [address] [place] [address] documented as of this encounter Visit Diagnoses Not on filedocumented in this encounter Additional Health Concerns Assessment Noted Time PHQ-9 Depression Total Score: 4 01/05/20 23 9:06 AM EDT documented as of this encounter Care Teams Patient Clerical Assistant Relationship Specialty Start Date End Date Taylor Iglesias MD [address] [place] [address] PCP - General Family Medicine 12/29/22 documented as of this encounter
--- OUTSIDE RECORDS SUMMARY | 2024-07-16 10:48 | XMS_ITS | Encounter Summary ---
Author Organization [employer] Address [address] [facility] [address] 7[address] [place] [address] Care Team Providers Care International First Officer Name Role Phone Taylor Iglesias MD Primary Care Provider [phone] Encounter Details Date Type Department Care Team ([facility] st Contact Info) Description 08/15/2023 Orders Only [facility] MEDICINE [address] [place] [phone] Taylor Iglesias MD [address] [place], [place] [phone] Social History Tobacco Use Types Packs/Day Years Used Date Smoking Tobacco: Never Smokeless Tobacco: Never Depression Answer Date Recorded Patient Health Questionnaire-9 Score 0 08/09/2023 Patient Health Questionnaire-9 Score 0 08/09/2023 Last PHQ-9: Questionnaire Data Not on file 0 08/09/2023 Housing Stability Answer Date Recorded What is your housing situation today? I do not have housing (Staying with others, in a hotel, in a fpc, living outside on the street, on a [...] Date Recorded Patient Health Questionnaire-2 Score 0 08/09/2023 Sex and Gender Information Value Date Recorded Sex Assigned at Male 03/15/2022 10:22 AM EDT Legal Sex Male 10:22 AM EDT Gender Identity Male 08/08/2023 8:50 AM EDT Sexual Orientation Straight 08/08/2023 8: 50 AM EDT documented as of this encounter Plan of Treatment Upcoming Encounters Date Type Department Care Team (Late st Contact Info) Description 07/27/2024 11:15 AM EDT Telemedicine [facility] MEDICINE [address] [place] [phone] Name, MD Jamie [address] [place] [address] 09/10/2024 9:00 AM EDT Office Visit [facility] CHC MED & PEDS [address] [place], [place] [phone] Javy Dennis MD [address] [place] [address] [phone] documented as of this encounter Visit Diagnoses Not on filedocumented in this encounter Additional Health Concerns Assessment Noted Time PHQ-9 Depression Total Score: 0 08/09/19 24 3:54 PM EDT documented as of this encounter Care Teams International First Officer Relationship Specialty Start Date End Date Taylor Iglesias MD [address] [place] [address] PCP - General Family Medicine 12/29/22 documented as of this encounter
--- OUTSIDE RECORDS SUMMARY | 2024-07-16 10:48 | XMS_ITS | Encounter Summary ---
Author Organization [employer] Address [address] [facility] [address] 7[address] [place] [address] Care Team Providers Care Water Registrar Name Role Phone Taylor Iglesias MD Primary Care Provider [phone] Encounter Details Date Type Department Care Team (Latest Contact Info) Description 07/09/2024 Travel Social History Tobacco Use Types Packs/Day [...] Info) Description 07/27/2024 11:15 AM EDT Telemedicine [facility] MEDICINE [address] [place] [address] Name, MD Jamie [address] [place] [address] 09/10/2024 9:00 AM EDT Office Visit [facility] CHC MED & PEDS [address] [place] [address] Javy Dennis MD [address] [place] [address] documented as of this encounter Visit Diagnoses Not on filedocumented in this encounter Additional Health Concerns Assessment Noted Time PHQ-9 Depression Total Score: 13 025 9:35 AM EST documented as of this encounter Care Teams Water Registrar Relationship Specialty Start Date End Date Taylor Iglesias MD [address] [place] [address] PCP - General Family Medicine 12/29/22 documented as of this encounter
--- OUTSIDE RECORDS SUMMARY | 2024-07-16 10:48 | XMS_ITS | Encounter Summary ---
Author Organization [email or web address] Address [address] [facility] [address] 7[address] [place] [address] Care Team Providers Care Edi Architect Name Role Phone Taylor Iglesias MD Primary Care Provider [phone] Reason for Visit * Reason Comments Recovery Supports Encounter Details Date Type Department Care Team ([facility] st Contact Info) Description 06/18/2024 Patient Outreach [facility] MEDICINE [address] [place] [address] Dejan Fuentes Recovery Supports Social History Tobacco Use Types Packs/Day Years [...] with others, in a hotel, in a [place] [facility], living outside on the street, on a [...] as of this encounter Progress Notes * Dejan Fuentes - 06/18/2024 1:21 PM EST I met with Porter velázquez. Setting: in person at [facility] Recovery Wellness Goals worked on: Social Stability Action taken/next steps: Enrolled in educational courses and Offered person centered recovery support Additional comments: The patient called me to ask about the next steps to take after completing the coach builder training. I explained the next steps to follow. Dejan Fuentes documented in this encounter Plan of Treatment Upcoming Encounters Date Type Department Care Team (Late st Contact Info) Description 07/27/2024 11:15 AM EDT Telemedicine [facility] MEDICINE [address] [place] [phone] Name, MD Jamie [address] [place] [address] 09/10/2024 9:00 AM EDT Office Visit [facility] CHC MED & PEDS [address] [place] [address] Javy Dennis MD [address] [place] [phone] documented as of this encounter Visit Diagnoses Not on filedocumented in this encounter Additional Health Concerns Assessment Noted Time PHQ-9 Depression Total Score: 13 025 9:35 AM EST documented as of this encounter Care Teams Edi Architect Relationship Specialty Start Date End Date Taylor Iglesias MD [address] [place] [address] PCP - General Family Medicine 12/29/22 documented as of this encounter
--- OUTSIDE RECORDS SUMMARY | 2024-07-16 10:48 | XMS_ITS | Encounter Summary ---
Author Organization [employer] Address [address] [facility] [address] 7[address] [place] [address] Care Team Providers Care Subsea Engineer Name Role Phone Taylor Iglesias MD Primary Care Provider [phone] Reason for Visit * Reason Onset Date Comments chart prep 06/28/2024 Encounter Details Date Type Department Care Team ([facility] st Contact Info) Description 06/28/2024 Telephone [facility] MEDICINE [address] [place], [place] [phone] Renay Renteria MA chart prep Social History Tobacco Use Types Packs/Day Years [...] encounter Miscellaneous Notes * Telephone Encounter - Renay Renteria MA - 06/28/2024 1:34 PM EST ..chart Prep Labs: not done 03/20/24 Images: not applicable Vaccines due: Covid Due Referrals: Completed Screenings: Not Applicable Overdue care gaps: Sbirt and SDOH documented in this encounter Plan of Treatment Upcoming Encounters Date Type Department Care Team (Late st Contact Info) Description 07/27/2024 11:15 AM EDT Telemedicine [facility] MEDICINE [address] [place] [address] Name, MD Jamie [address] [place] [address] 09/10/2024 9:00 AM EDT Office Visit [facility] MED & PEDS [address] [place] [address] Javy Dennis MD [address] [place] [phone] documented as of this encounter Visit Diagnoses Not on filedocumented in this encounter Additional Health Concerns Assessment Noted Time PHQ-9 Depression Total Score: 13 025 9:35 AM EST documented as of this encounter Care Teams Subsea Engineer Relationship Specialty Start Date End Date Taylor Iglesias MD [address] [place] [address] PCP - General Family Medicine 12/29/22 documented as of this encounter
[2024-07-16 14:22] LABS: MANUAL DIFF FLAG NO
[2024-07-16 14:26] LABS: Basophils Percent Auto 0.5 % (0-2); Eosinophils Absolute Auto 0.1 X10*3/uL (0.0-0.4); Hematocrit 42.5 % (42.0-52.0); Hemoglobin 14.6 g/dl (14.0-18.0); Imm Gran Abs Auto 0.03 X10*3/uL (0.00-0.03); Imm Gran Pct Auto 0.5 % (0.0-0.4); Lymphocytes Absolute Auto 1.4 X10*3/uL (1.2-4.9); Lymphocytes Percent Auto 20.6 % (20-40); Mean Corpuscular HGB Conc 34.4 g/dl (31.0-36.0); Mean Corpuscular Hemoglobin 31.5 pg (27.0-33.0); Mean Corpuscular Volume 91.6 fL (80.0-98.0); Mean Platelet Volume 11.2 fL (9.4-12.4); Monocytes Absolute Auto 0.6 X10*3/uL (0.1-1.2); Monocytes Percent Auto 9.1 % (2-11); Neutrophils Absolute Auto 4.5 x10*3/uL (2.0-8.3); Neutrophils Percent Auto 67.3 % (45-73); Platelet Count 234 X10*3/uL (160-400); Red Blood Count 4.64 X10*6/uL (4.60-5.80); Red Cell Distribution Width 13.7 % (11.0-16.0); White Blood Count 6.6 X10*3/uL (4.8-10.8)
[2024-07-16 14:48] LABS: Alanine Aminotransferase 35 U/L (0-40); Albumin Level 4.5 g/dL (3.5-5.0); Alkaline Phosphatase 78 U/L (39-117); Anion Gap 12 (12-20); Aspartate Amino Transferase 32 U/L (5-37); Bilirubin Direct 0.1 mg/dL (0.0-0.5); Bilirubin Total 0.3 mg/dL (0.0-1.0); Blood Urea Nitrogen 12 mg/dL (9-16); Carbon Dioxide 23 mmol/L (22-29); Chloride 108 mmol/L (96-108); Cholesterol 140 mg/dL (<200); Estimated Glomerular Filt Rate > 60; Glucose Random 140 mg/dL (60-115); HDL Cholesterol 47 mg/dL (>40); LDL Cholesterol Calculated 75 mg/dL (<100); Potassium 4.1 mmol/L (3.3-5.1); Sodium 139 mmol/L (135-145); Total Protein 7.9 g/dL (6.5-8.0); Triglycerides 91 mg/dL (<150)
[2024-07-16 14:52] LABS: Reflex LDLD? No
[2024-07-16 15:05] LABS: TSH reflex Free T4 1.18 uIU/mL (0.32-4.0)
[2024-07-16 16:07] LABS: CT PCR NOT DETECTED (Not Detect.); NG PCR NOT DETECTED (Not Detect.)
[2024-07-17 08:06] LABS: Syphilis Screen Nonreactive (Nonreactive)
[2024-07-17 08:32] LABS: HBS Num1 > 1000.00 mIU/mL (0-7.99); HBc Num1 0.13 S/CO (0.00-0.79); HBsAGNum1 0.29 S/CO (0.00-0.99); HIV AB/AG Nonreactive (Nonreactive); HIV Num 1 0.05 S/CO (0.00-0.99); Hepatitis A Antibody IgG REACTIVE (Nonreactive); Hepatitis B Core Antibody Nonreactive (Nonreactive); Hepatitis B Surface Antigen Negative (Negative); ~HepC Num1 16.16 S/CO (0.00-0.79); ~Hepatitis A Antibody IgG 5.52 S/CO (0.00-0.99); ~Hepatitis B Surface Antibody REACTIVE (Nonreactive); ~Hepatitis C Antibody Reactive (Nonreactive)
[2024-07-18 15:19] LABS: HCV Log PCR <1.18 NOT DETECTED Log IU/mL (NOT DETECTED); HepC Viral Load <15 NOT DETECTED IU/mL (NOT DETECTED)
[2024-07-19 11:04] LABS: TS Negative Control Passed; TS Panel A 0; TS Panel B 0; TS Positive Control Passed; TSpotTB Negative (Negative)
== END 2024-07-16 09:41 | disposition home or self-care (01) ==
LOC: HO.CHCLDS 09:40
PROVIDERS: Visit Provider Family Medicine
DX: Z11.3 Encounter for screening for infections with a predominantly sexual mode of transmission (principal); R63.4 Abnormal weight loss; E78.1 Pure hyperglyceridemia; Z01.84 Encounter for antibody response examination; Z11.1 Encounter for screening for respiratory tuberculosis
CPT/HCPCS: 36415; 80048; 80061; 80076; 84443; 85025; 86481; 86704; 86706; 86708; 86780; 86803; 87340; 87389; 87491; 87522; 87591

== ENCOUNTER 2024-07-17 10:05 | Outpatient (REF) | payer MEDICAID, SELFPAY ==
--- NOTE | 2024-07-17 10:09 | EMG_ITS ---
Right median and ulnar motor and sensory studies were performed. Right radial sensory study was performed, and paraspinal muscles were tested with a needle. IMPRESSION: Mild right median neuropathy across carpal tunnel. MD VINCE Gan/GIOVANNY / [phone]
--- OUTSIDE RECORDS SUMMARY | 2024-07-17 12:00 | XMS_ITS | Encounter Summary ---
Author Organization [employer] Address [address] [facility] [address] 7t [place] [address] Care Team Providers Care Heavy Truck Mechanic Name Role Phone Taylor Iglesias MD Primary Care Provider [phone] Encounter Details Date Type Department Care Team [...] with others, in a hotel, in a detention, living outside on the street, on a [...] Info) Description 07/27/2024 11:15 AM EDT Telemedicine [facility] MEDICINE [address] [place] [phone] Name, MD Jamie [address] [place] [address] 09/10/2024 9:00 AM EDT Office Visit [facility] CHC MED & PEDS [address] [place] [address] Javy Dennis MD [address] [place] [address] documented as of this encounter Visit Diagnoses Not on filedocumented in this encounter Additional Health Concerns Assessment Noted Time PHQ-9 Depression Total Score: 13 025 9:35 AM EST documented as of this encounter Care Teams Heavy Truck Mechanic Relationship Specialty Start Date End Date Taylor Iglesias MD [address] [place] [address] PCP - General Family Medicine 12/29/22 documented as of this encounter
--- OUTSIDE RECORDS SUMMARY | 2024-07-17 12:01 | XMS_ITS | Encounter Summary ---
Author Organization [employer] Address [address] [facility] 7t [place] [address] Care Team Providers Care Seismometer Operator Name Role Phone Taylor Iglesias MD Primary Care Provider [phone] Reason for Visit * Reason Comments Med Refill Encounter Details Date Type Department Care Team ([facility] Contact Info) Description 04/14/2023 Refill [facility] MEDICINE [address] [place], [place] [phone] Taylor Iglesias MD [address] [place], [place] [phone] Social History Tobacco Use Types Packs/Day Years Used Date Smoking Tobacco: Never Smokeless Tobacco: Never Depression Answer Date Recorded Patient Health Questionnaire-9 Score 4 01/04/2023 Housing Stability Answer Date Recorded What is your housing situation today? I do not have housing (Staying with others, in a hotel, in a half-way, living outside on the street, on a [...] Info) Description 07/27/2024 11:15 AM EDT Telemedicine [facility] MEDICINE [address] [place] [address] Name, MD Jamie [address] [place] [address] 09/10/2024 9:00 AM EDT Office Visit [facility] CHC MED & PEDS [address] [place] [address] Javy Dennis MD [address] [place] [address] documented as of this encounter Visit Diagnoses Not on filedocumented in this encounter Additional Health Concerns Assessment Noted Time PHQ-9 Depression Total Score: 4 01/05/20 23 9:06 AM EDT documented as of this encounter Care Teams Seismometer Operator Relationship Specialty Start Date End Date Taylor Iglesias MD [address] [place] [phone] PCP - General Family Medicine 12/29/22 documented as of this encounter
--- OUTSIDE RECORDS SUMMARY | 2024-07-17 12:01 | XMS_ITS | Clinical Summary ---
Author Organization [employer] Address [address] [place] [address] Care Team Providers Care Steel Melter Name Role Phone Taylor Iglesias MD Primary Care Provider [phone] Allergies No known active allergies Medications * [...] This Visit Other Opioid abuse, in remission ([facility]/HCC) EVGENY (generalized anxiety disorder) Patient ready to address current needs Yes Strengths include willing to seek support PLAN: 1. Follow up with [facility]: Recommended for follow-up: during OBAT appts 2. [...] with Dr. Dennis and CRS team in [place] Assessment & Plan (08/26/2023 11:27 AM EDT): - continue OBAT with Dr. Dennis and CRS team in [place] Assessment & Plan (03/03/2023 5:05 AM EDT): - continue OBAT with Dr. Dennis and CRS team in [place] Assessment & Plan (01/04/2023 9:32 AM EDT): [...] This Visit Other Opioid abuse, in remission (CMS/[facility]) EVGENY (generalized anxiety disorder) Patient ready to address current needs Yes Strengths include willing to seek support PLAN: 1. Follow up with [facility]: Recommended for follow-up: during OBAT appts 2. [...] Description 07/16/2024 9:00 AM EST Office Visit [facility] [address] [place] [address] Javy Dennis MD Opioid type dependence, continuous (CMS/HCC) (Primary Dx) 07/16/2024 Travel 07/11/[address] [address] Kate Joshi RN Opioid abuse ([facility]) 07/09/2024 1:15 PM EST Office Visit [address] [address] Jamie Charlton MD Right hand paresthesia; Left hand pain 07/09/2024 Travel 07/09/[address] [address] Taylor Iglesias MD Nurse Triage 06/28/[address] [phone] Renay Renteria MA chart prep 06/18/2024 Patient Outreach [address] [address] Dejan Fuentes Recovery Supports 06/11/2024 Patient Outreach [address] [address] Dejan Fuentes Recovery Supports 06/08/2024 Patient Outreach [facility] [address] [place] [address] Dejan Fuentes Recovery Supports 06/06/2024 Patient Outreach [facility] [address] [place] [place] [address] Dejan Fuentes Recovery Supports 05/28/2024 Patient Outreach [facility] [address] [place] [place] [address] Dejan Fuentes Recovery Supports 05/28/2024 Telephone [facility] [address], [place] [phone] Javy Dennis MD 05/21/2024 9:00 AM EST Office Visit [facility] [address], [place] [phone] Javy Dennis MD Opioid type dependence, continuous (CMS/HCC) (Primary Dx) 05/21/2024 Patient Outreach [facility] [address] [place] [address] Dejan Fuentes Recovery Supports 05/21/2024 Travel 05/14/2024 Refill [facility] [address] [place] [address] Fabrizio Jewell RN Opioid abuse ([facility]) from Last 3 Months Immunizations Name Administration [...] with others, in a hotel, in a intermediate, living outside on the street, on a [...] Info) Description 07/27/2024 11:15 AM EDT Telemedicine [facility] [address] [place], [place] [phone] Name, MD Jamie [address] [place], [place] [phone] 09/10/2024 9:00 AM EDT Office Visit [facility] [address] [place], [place] [phone] Javy Dennis MD [address] [place], [place] [phone] Health Maintenance Due Date Last Done Comments [...] Screening 05/25/2025 05/25/2024, 05/25/19 25 Lipid Panel 07/16/2029 07/16/2024, 02/11/2023 DTaP/Tdap/Td Vaccines (2 - Td or Tdap) 04/24/2031 04/24/2021 Zoster Vaccines (1 of 2) 2041 RSV Patients and Patients Aged 60 years or older (1 - 1-dose 75+ series) 2066 Hepatitis A Vaccines Completed 02/08/2023, 02/28/20 21 Hepatitis B Vaccines Completed 08/09/2023, 03/08/2023, 02/08/2023 Influenza Vaccine Completed 03/20/2024, , 03/15/2022, Additional history exists HIV Screening Completed 07/16/2024, 02/20/2021 Hepatitis C Screening Completed 07/16/2024, 021 HIB Vaccines Aged Out No longer eligi [...] Procedure Name Priority Date/Time Associated Diagnosis Comments CHLAMYDIA/N. GONORRHOEAE RNA, TMA, UROGENITAL Routine 07/16/2024 9:50 AM EST Routine screening for STI (sexually transmitted infection) CBC WITH AUTO DIFFERENTIAL Routine 07/16/2024 9:43 AM EST Weight loss TSH W/REFLEX TO FT4 Routine 07/16/2024 9 :43 AM EST Weight loss HEPATITIS A ANTIBODY, TOTAL Routine 07/16/2024 9:43 AM EST Immunity status testing HEPATITIS B SURFACE ANTIGEN, EIA Routine 07/16/2024 9:43 AM EST Routine screening for STI (sexually transmitted infection) HIV 1/2 ANTIGEN/ANTIBODY, FOURTH GENERATION W/RFL Routine 07/16/2024 9:43 AM EST Routine screening for STI (sexually transmitted infection) HEPATITIS B CORE AB TOTAL Routine 07/16/2024 9:43 AM EST Routine screening for STI (sexually transmitted infection) HEPATITIS B SURFACE ANTIBODY, QUALITATIVE Routine 07/16/2024 9:43 AM EST Routine screening for STI (sexually transmitted infection) HEPATITIS C AB W/REFL TO HCV RNA, QN, PCR Routine 07/16/2024 9:43 AM EST Routine screening for STI (sexually transmitted infection) SYPHILIS SCREEN Routine 07/16/2024 9:43 AM EST Routine screening for STI (sexually transmitted infection) BASIC METABOLIC PANEL Routine 07/16/2024 9:43 AM EST Hypertriglyceridemi a Weight loss LIPID PANEL WITH REFLEX TO DIRECT LDL Routine 07/16/2024 9:43 AM EST Hypertriglyceridemi a HEPATIC FUNCTION PANEL Routine 07/16/2024 9:43 AM EST Hypertriglyceridemi a POCT MIN-14 URINE DRUG SCREEN Routine 07/16/2024 9:17 AM EST Opioid type dependence, continuous (CMS/HCC) POCT MIN-14 URINE DRUG SCREEN Routine 05/21/2024 9:01 AM EST Opioid type dependence, continuous (CMS/HCC) from Last 3 Months Results * Chlamydia/N. Gonorrhoeae RNA, TMA, Urogenitial (07/16/2024 9:50 AM EST) CT PCR NOT DETECTED Not Detect. [facility] Comment:A not detected test result does not exclude the possibilityof infection because test results can be affected byimproper specimen collection, concurrent antibiotic therapy,or the number of organisms in the specimen which may bebelow the sensitivity of the test. As with many diagnostictests, results from the Xpert CT/NG assay should beinterpreted in conjunction with other laboratory andclinical data available to the clinician.Xpert CT/NG performance has not been evaluated in patientsless than 14 years of age. The assay should not be used forthe evaluationof suspected sexual abuse or for other medico-legalindications. Additional testing is recommended in anycircumstance when false positive or false negative resultscould lead to adverse medical, social or psychologicalconsequences. NG PCR NOT DETECTED Not Detect. [facility] Comment:A not detected test result does not exclude the possibilityof infection because test results can be affected byimproper specimen collection, concurrent antibiotic therapy,or the number of organisms in the specimen which may bebelow the sensitivity of the test. As with many diagnostictests, results from the Xpert CT/NG assay should beinterpreted in conjunction with other laboratory andclinical data available to the clinician.Xpert CT/NG performance has not been evaluated in patientsless than 14 years of age. The assay should not be used forthe evaluationof suspected sexual abuse or for other medico-legalindications. Additional testing is recommended in anycircumstance when false positive or false negative resultscould lead to adverse medical, social or psychologicalconsequences. Urine, Random 07/16/2024 9:5 0 AM EST 07/16/2024 2:19 PM EST Narrative [facility] - 07/16/2024 4:07 PM EST Urine Taylor Iglesias MD LAB MICROBIOLOGY - GENERAL ORDER NANCIE Final Result Performing Organization Address [facility] Co de Phone Number [facility] [address] [place] [phone] * Syphilis Screen (07/16/2024 9:43 AM EST) Syphilis Screen Nonreactive Nonreactive [facility] Blood 07/16/2024 9:43 AM EST 07/16/2024 2:17 PM EST Taylor Iglesias MD LAB BLOOD ORDERABLES Final Resul t Performing Organization Address [facility] Co de Phone Number [facility] [address] [place] [phone] * TSH with Reflex to Free T4 (07/16/2024 9:43 AM EST) TSH reflex Free T4 1.18 0.32 - 4.0 uIU/mL [facility] Blood 07/16/2024 9:43 AM EST 07/16/2024 2:17 PM EST us Taylor Iglesias MD LAB BLOOD ORDERABLES Final Resul t Performing Organization Address City/[facility]/ZIP Co de Phone Number [facility] [address] [place] [phone] * Lipid Panel with Reflex to Direct LDL (07/16/2024 9:43 AM EST) Triglycerides 91 <150 mg/dL [facility] Comment:Desirable Triglyceri de: less than 150 mg/dLBorderline High Triglyceride 150-199 mg/dLHigh Triglyceride: 200-499 mg/dLVery High Triglyceride: greater than or equal to 5OO mg/dL Cholesterol 140 <200 mg/dL [facility] Comment:Desirable Cholestero l: less than 200 mg/dLBorderline High Cholesterol: 200-239 mg/dLHigh Cholesterol: greater than 239 mg/dL LDL Cholesterol Calculated 75 <100 mg/dL [facility] Comment:Desirable LDL: less than 100 mg/dLNear Optimal/Above Optimal LDL: 110- 129 mg/dLBorderline High LDL: 130-159 mg/dLHigh LDL: 160-189 mg/dLVery High LDL: greater than or equal to 190 mg/dL HDL Cholesterol 47 >40 mg/dL [facility] Comment:Desirable HDL: great er than 40 mg/dL Note: This HDL assay may give artificially low results in patients with liver disease. Blood 07/16/2024 9:43 AM EST 07/16/2024 2:17 PM EST us Taylor Iglesias MD LAB BLOOD ORDERABLES Final Resul t Performing Organization Address City/[facility]/ZIP Co de Phone Number [facility] [address] [place] [phone] * (ABNORMAL) CBC auto differential (07/16/2024 9:43 AM EST) White Blood Count 6.6 4.8 - 10.8 X10*3/uL [facility] Red Blood Count 4.64 4.60 - 5.80 X10*6/uL [facility] Hemoglobin 14.6 14.0 - 18.0 g/dl [facility] Hematocrit 42.5 42.0 - 52.0 % [facility] Mean Corpuscular Volume 91.6 80.0 - 98.0 fL [facility] Mean Corpuscular Hemoglobin 31.5 27.0 - 33.0 pg [facility] Mean Corpuscular HGB Conc 34.4 31.0 - 36.0 g/dl [facility] Red Cell Distribution Width 13.7 11.0 - 16.0 % [facility] Platelet Count 234 160 - 400 X10*3/uL [facility] Mean Platelet Volume 11.2 9.4 - 12.4 fL [facility] Neutrophils Percent Auto 67.3 45 - 73 % [facility] Imm Gran Pct Auto 0.5(H) 0.0 - 0.4 % [facility] Lymphocytes Percent Auto 20.6 20 - 40 % [facility] Monocytes Percent Auto 9.1 2 - 11 % [facility] Eosinophils Percent Auto 2.0 0 - 4 % [facility] Basophils Percent Auto 0.5 0 - 2 % [facility] NRBC Pct Auto 0.0 0.0 - 0.2 /100WBC [facility] Neutrophils Absolute Auto 4.5 2.0 - 8.3 x10*3/uL [facility] Imm Gran Abs Auto 0.03 0.00 - 0.03 X10*3/uL [facility] Lymphocytes Absolute Auto 1.4 1.2 - 4.9 X10*3/uL [facility] Monocytes Absolute Auto 0.6 0.1 - 1.2 X10*3/uL [facility] Eosinophils Absolute Auto 0.1 0.0 - 0.4 X10*3/uL [facility] Basophils Absolute Auto 0.0 0.0 - 0.2 X10*3/uL [facility] NRBC Abs Auto 0.000 0.0 - 0.012 X10*3/uL [facility] Blood Venous blood specimen / Unknown 07/16/2024 9:43 AM EST 07/16/2024 2:17 PM EST Taylor Iglesias MD LAB BLOOD ORDERABLES Final Resul t Performing Organization Address [facility] Co de Phone Number [facility] [address] [place] [phone] * (ABNORMAL) Hepatitis C Antibody with Reflex to HCV, RNA, Quantitative, Real- Time PCR (07/16/2024 9:43 AM EST) Hepatitis C Antibody Reactive( A) Nonreactive [facility] Comment:Presumptive evidence of antibodies to HCV. Blood Venous blood specimen / Unknown 07/16/2024 9:43 AM EST 07/16/2024 2:17 PM EST Taylor Iglesias MD LAB BLOOD ORDERABLES Final Resul t Performing Organization Address [facility] de Phone Number [facility] [address] [place] [phone] * Hepatitis A Antibody, Total (07/16/2024 9:43 AM EST) Hepatitis A Antibody IgG REACTIVE Nonreactive [facility] Comment:The presence of IgG anti-HAV implies past HAV infection(recent or distant) or vaccination against HAV. Blood Venous blood specimen / Unknown 07/16/2024 9:43 AM EST 07/16/2024 2:17 PM EST Taylor Iglesias MD LAB BLOOD ORDERABLES Final Resul t Performing Organization Address [facility] Co de Phone Number [facility] [address] [place] [phone] * Hepatitis B surface antigen, EIA (07/16/2024 9:43 AM EST) Hepatitis B Surface Ag Negative Negative [facility] Blood Venous blood specimen / Unknown 07/16/2024 9:43 AM EST 07/16/2024 2:17 PM EST us Taylor Iglesias MD LAB BLOOD ORDERABLES Final Resul t Performing Organization Address City/[facility]/ZIP Co de Phone Number [facility] [address] [place] [phone] * Hepatitis B Core Antibody, Total (07/16/2024 9:43 AM EST) Hepatitis B Core Antibody Nonreactive Nonreactive [facility] Blood Venous blood specimen / Unknown 07/16/2024 9:43 AM EST 07/16/2024 2:17 PM EST us Taylor Iglesias MD LAB BLOOD ORDERABLES Final Resul t Performing Organization Address [facility] Co de Phone Number [facility] [address] [place] [phone] * HIV-1/2 Antigen and Antibodies, Fourth Generation, with Reflexes (07/16/2024 9:43 AM EST) HIV AB/AG Nonreactive Nonreactive [facility] Comment:HIV-1 p24 Ag and/or HIV-1/HIV-2 Ab not detected.A test result that is nonreactive does not exclude thepossibility of exposure to or infection with HIV-1 and/orHIV-2. Nonreactive results in this assay for individualswith prior exposure to HIV-1 and/or HIV-2 may be due toantigen and antibody levels that are below the limit ofdetection of this assay.The [employer] HIV Ag/Ab Combo assay result andsupplemental assay results should be interpreted inconjunction with the patient's clinical presentation,history and other laboratory results. If the results areinconsistent with clinical evidence, additional testing issuggested to confirm the result. Blood Venous blood specimen / Unknown 07/16/2024 9:43 AM EST 07/16/2024 2:17 PM EST Taylor Iglesias MD LAB BLOOD ORDERABLES Final Resul t Performing Organization Address [facility]/ZIP Co de Phone Number [facility] [address] [place] [phone] * Hepatitis B Surface Antibody, Qualitative (07/16/2024 9:43 AM EST) ~Hepatitis B Surface Antibody REACTIVE Nonreactive [facility] Comment:REACTIVE: > 11.99 mI U/mL Blood Venous blood specimen / Unknown 07/16/2024 9:43 AM EST 07/16/2024 2:17 PM EST us Taylor Iglesias MD LAB BLOOD ORDERABLES Final Resul t Performing Organization Address [facility] Co de Phone Number [facility] [address] [place] [phone] * Hepatic Function Panel (07/16/2024 9:43 AM EST) Bilirubin, Total 0.3 0.0 - 1.0 mg/dL [facility] Bilirubin, Direct 0.1 0.0 - 0.5 mg/dL [facility] Aspartate Amino Transferase 32 5 - 37 U/L [facility] Alanine Aminotransferase 35 0 - 40 U/L [facility] Total Protein 7.9 6.5 - 8.0 g/dL [facility] Albumin Level 4.5 3.5 - 5.0 g/dL [facility] Alkaline Phosphatase 78 39 - 117 U/L [facility] Blood Venous blood specimen / Unknown 07/16/2024 9:43 AM EST 07/16/2024 2:17 PM EST Taylor Iglesias MD LAB BLOOD ORDERABLES Final Resul t Performing Organization Address [facility] Co de Phone Number [facility] [address] [place] [address] [phone] * (ABNORMAL) Basic Metabolic Panel (07/16/2024 9:43 AM EST) Sodium 139 135 - 145 mmol/L [facility] Potassium 4.1 3.3 - 5.1 mmol/L [facility] Chloride 108 96 - 108 mmol/L [facility] Carbon Dioxide 23 22 - 29 mmol/L [facility] Anion Gap 12 12 - 20 [facility] Urea Nitrogen (BUN) 12 9 - 16 mg/dL [facility] Creatinine, Serum 0.72 0.5 - 1.4 mg/dL [facility] Estimated Glomerular Filt Rate >60 [facility] Comment:Chronic Kidney Disea se: Estimated GFR < 60 mL/min/1.46b2Iydljm Kidney Disease: Estimated GFR < 15 mL/min/1.73m2 Glucose 140(H) 60 - 115 mg/dL [facility] Calcium 9.0 8.4 - 10.2 mg/dL [facility] Blood Venous blood specimen / Unknown 07/16/2024 9:43 AM EST 07/16/2024 2:17 PM EST us Taylor Iglesias MD LAB BLOOD ORDERABLES Final Resul t [facility] [address] [place] [phone] * POCT MIN-14 Urine Drug Screen (07/16/2024 [...] CARE TEST ENTER/EDIT OR DERABLES Final Result from Last 3 Months Insurance C3 Care Teams Steel Melter Relationship Specialty Start Date End Date Taylor Iglesias MD [address] [place] [phone] PCP - General Family Medicine 12/29/22
--- OUTSIDE RECORDS SUMMARY | 2024-07-17 12:01 | XMS_ITS | Encounter Summary ---
Author Organization [employer] Address [address] [facility] [address] [place] [address] Care Team Providers Care Student Life Vice President Name Role Phone Taylor Iglesias MD Primary Care Provider [phone] Reason for Referral * Neurology (Routine) - Closed Specialty Diagnoses / Procedures Referred By Contac t Referred To Contact Diagnoses Right hand paresthesia Left hand pain Procedures Nerve conduction test NameJamie MD [address] [place] [phone] Phone: tel: fax: [address] Phone: tel: fax: Referral ID Status Reason Start Date Expiration Date Visits Re quested Visits Authorized [id number] Closed 07/09/2024 07/09/2025 1 1 Reason for Visit * Reason Comments hand pain and paresthesia Encounter Details Date Type Department Care Team (Late st Contact Info) Description 07/09/2024 1:15 PM EST Office Visit [facility] [address] [place] [address] [phone] Name, MD Jamie [address] [place] [address] [phone] Right hand paresthesia; Left hand pain Social [...] Info) Description 07/27/2024 11:15 AM EDT Telemedicine [facility] [address] [place] [address] Name, MD Jamie [address] [place] [address] 09/10/2024 9:00 AM EDT Office Visit [facility] [address] [place] [address] Javy Dennis MD [address] [place] [address] Scheduled Orders Name Type Priority Associated Diagnoses [...] documented as of this encounter Care Teams Student Life Vice President Relationship Specialty Start Date End Date Taylor Iglesias MD [address] [place] [address] PCP - General Family Medicine 12/29/22 documented as of this encounter
--- OUTSIDE RECORDS SUMMARY | 2024-07-17 12:01 | XMS_ITS | Encounter Summary ---
Author Organization [employer] Address [address] [facility] [facility] [address] [place] [address] Care Team Providers Care Software Configuration Analyst Name Role Phone Taylor Iglesias MD Primary Care Provider [phone] Reason for Visit * Reason Onset Date Comments chart prep 06/28/2024 Encounter Details Date Type Department Care Team ([facility] st Contact Info) Description 06/28/2024 Telephone [facility] [address] [place], [place] [phone] Renay Renteria MA chart prep Social History [...] with others, in a hotel, in a fdc, living outside on the street, on a [...] Info) Description 07/27/2024 11:15 AM EDT Telemedicine [facility] [address] [place] [phone] Name, MD Jamie [address] [place] [phone] 09/10/2024 9:00 AM EDT Office Visit [facility] [address] [place] [address] Javy Dennis MD [address] [place] [phone] documented as of this encounter Visit Diagnoses Not on filedocumented in this encounter Additional Health Concerns Assessment Noted Time PHQ-9 Depression Total Score: 13 025 9:35 AM EST documented as of this encounter Care Teams Software Configuration Analyst Relationship Specialty Start Date End Date Taylor Iglesias MD [address] [place] [address] PCP - General Family Medicine 12/29/22 documented as of this encounter
--- OUTSIDE RECORDS SUMMARY | 2024-07-17 12:01 | XMS_ITS | Encounter Summary ---
Author Organization [employer] Address [address] [place] [address] Care Team Providers Care Senior Animator Name Role Phone Taylor Iglesias MD Primary Care Provider [phone] Reason for Visit * Reason Comments OBAT F/U Encounter Details Date Type Department Care Team ([facility] st Contact Info) Description 07/16/2024 9:00 AM EST Office Visit [facility] MED & PEDS [address] [place] [address] Javy Dennis MD [address] [place] [phone] Opioid type dependence, continuous (CMS/HCC) (Primary Dx) [...] in 08/2021 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 Met with today Started a GED program; will also pursue CDL Has two children Christian (1 year) and [...] in 08/2021 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 Checker Started a GED program; will also pursue CDL Community Lockstitch Cup Setter information given to assist with his outstanding [...] for this visit: Opioid type dependence, continuous (CMS/[facility]) (Primary) - POCT MIN-14 Urine Drug Screen [...] 07/27/2024 11:15 AM EDT Telemedicine [facility] MEDICINE [address] [place] [address] Name, MD Jamie [address] [place] [address] 09/10/2024 9:00 AM EDT Office Visit [facility] CHC MED & PEDS [address] [place] [address] Javy Dennis MD [address] [place] [address] documented as of this encounter Procedures Procedure [...] documented as of this encounter Care Teams Senior Animator Relationship Specialty Start Date End Date Taylor Iglesias MD [address] [place] [id number] PCP - General Family Medicine 12/29/22 documented as of this encounter
--- OUTSIDE RECORDS SUMMARY | 2024-07-17 12:01 | XMS_ITS | Encounter Summary ---
Author Organization [employer] Address [address] [place] [address] Care Team Providers Care Shellfish Harvester Name Role Phone Taylor Iglesias MD Primary Care Provider [phone] Reason for Visit * Reason Comments Recovery Supports Encounter Details Date Type Department Care Team ([facility] st Contact Info) Description 06/18/2024 Patient Outreach [facility] MEDICINE [address] [place] [address] Dejan Fuentes Recovery Supports Social History Tobacco [...] with Porter velázquez. Setting: in person at [facility] Recovery Wellness Goals worked on: Social Stability Action taken/next steps: Enrolled in educational courses and Offered person centered recovery support Additional comments: The patient called me to ask about the next steps to take after completing the classroom technology coach training. I explained the next steps to follow. eDjan Fuentes documented in this encounter Plan of Treatment Upcoming Encounters Date Type Department Care Team (Late st Contact Info) Description 07/27/2024 11:15 AM EDT Telemedicine [facility] MEDICINE [address] [place] [address] Name, MD Jamie [address] [place] [address] 09/10/2024 9:00 AM EDT Office Visit [facility] CHC MED & PEDS [address] [place] [address] Javy Dennis MD [address] [place] [phone] documented as of this encounter Visit Diagnoses Not on filedocumented in this encounter Additional Health Concerns Assessment Noted Time PHQ-9 Depression Total Score: 13 025 9:35 AM EST documented as of this encounter Care Teams Shellfish Harvester Relationship Specialty Start Date End Date Taylor Iglesias MD [address] [place] [address] PCP - General Family Medicine 12/29/22 documented as of this encounter
--- OUTSIDE RECORDS SUMMARY | 2024-07-17 12:01 | XMS_ITS | Encounter Summary ---
Author Organization [employer] Address [address] [place] [address] Care Team Providers Care Auto Bumper Straightener Name Role Phone Taylor Iglesias MD Primary Care Provider [phone] Reason for Visit * Reason Onset Date Comments Nurse Triage 07/09/2024 Encounter Details Date Type Department Care Team ([facility] st Contact Info) Description 07/09/2024 Telephone [facility] MEDICINE [address] [place], [place] [phone] Taylor Iglesias MD [address] [place] [address] Nurse Triage Social History Tobacco Use Types [...] with others, in a hotel, in a residential, living outside on the street, on a [...] patient who reports that he went to [facility] on [address] last Tuesday ( 8 days ago) patient with pain in wrist and numbness in last 3 fingers of right hand. Patient reports xrays done no known outcome. Has noted swelling of hand but no redness. Was prescribed motrin 800mg PRNthat has been minimally helpful. Patient reports decreased intake counselor strength as related to pain and that [...] caller accepted this outcome. Contact pt at [phone] documented in this encounter Plan of Treatment Upcoming Encounters Date Type Department Care Team (Late st Contact Info) Description 07/27/2024 11:15 AM EDT Telemedicine [facility] MEDICINE [address] [place] [phone] Name, MD Jamie [address] [place] [address] 09/10/2024 9:00 AM EDT Office Visit [facility] CHC MED & PEDS [address] [place] [address] Javy Dennis MD [address] [place] [address] documented as of this encounter Visit Diagnoses Not on filedocumented in this encounter Additional Health Concerns Assessment Noted Time PHQ-9 Depression Total Score: 13 025 9:35 AM EST documented as of this encounter Care Teams Auto Bumper Straightener Relationship Specialty Start Date End Date Taylor Iglesias MD [address] [place] [phone] PCP - General Family Medicine 12/29/22 documented as of this encounter
--- OUTSIDE RECORDS SUMMARY | 2024-07-17 12:01 | XMS_ITS | Encounter Summary ---
Author Organization [employer] Address [address] [place] [address] Care Team Providers Care Automatic Vulcanizing Operator Name Role Phone Taylor Iglesias MD Primary Care Provider [phone] Encounter Details Date Type Department Care Team ([facility] st Contact Info) Description 08/15/2023 Orders Only [facility] MEDICINE [address] [place] [phone] Taylor Iglesias MD [address] [place], [place] [phone] Social History Tobacco Use Types Packs/Day Years [...] with others, in a hotel, in a penitentiary, living outside on the street, on a [...] Info) Description 07/27/2024 11:15 AM EDT Telemedicine [facility] MEDICINE [address] [place] [address] Name, MD Jamie [address] [place] [address] 09/10/2024 9:00 AM EDT Office Visit [facility] CHC MED & PEDS [address] [place], [place] [phone] Javy Dennis MD [address] [place] [address] [phone] documented as of this encounter Visit Diagnoses Not on filedocumented in this encounter Additional Health Concerns Assessment Noted Time PHQ-9 Depression Total Score: 0 08/09/19 24 3:54 PM EDT documented as of this encounter Care Teams Automatic Vulcanizing Operator Relationship Specialty Start Date End Date Taylor Iglesias MD [address] [place] [address] PCP - General Family Medicine 12/29/22 documented as of this encounter
--- OUTSIDE RECORDS SUMMARY | 2024-07-17 12:01 | XMS_ITS | Encounter Summary ---
Author Organization [employer] Address [address] [place] [address] Care Team Providers Care Tax Services Intern Name Role Phone Taylor Iglesias MD Primary Care Provider [phone] Reason for Visit * Reason Onset Date Comments Med Refill 07/11/2024 Encounter Details Date Type Department Care Team (Late st Contact Info) Description 07/11/2024 Refill [facility] MEDICINE [address] [place] [address] Kate Joshi, RN Opioid abuse (CMS/[facility]) Social History Tobacco Use Types Packs/Day Years [...] with others, in a hotel, in a long term, living outside on the street, on a [...] Info) Description 07/27/2024 11:15 AM EDT Telemedicine [facility] MEDICINE [address] [place] [phone] Name, MD Jamie [address] [place] [address] 09/10/2024 9:00 AM EDT Office Visit [facility] CHC MED & PEDS [address] [place] [address] Javy Dennis MD [address] [place] [address] documented as of this encounter Visit Diagnoses Diagnosis Opioid abuse (CMS/HCC) Nondependent opioid abuse, unspecified documented in this encounter Additional Health Concerns Assessment Noted Time PHQ-9 Depression Total Score: 13 025 9:35 AM EST documented as of this encounter Care Teams Tax Services Intern Relationship Specialty Start Date End Date Taylor Iglesias MD [address] [place] [phone] PCP - General Family Medicine 12/29/22 documented as of this encounter
--- OUTSIDE RECORDS SUMMARY | 2024-07-17 12:01 | XMS_ITS | Encounter Summary ---
Author Organization [employer] Address [address] [place] [address] Care Team Providers Care Flume Ride Operator Name Role Phone Taylor Iglesias MD Primary Care Provider [phone] Encounter Details Date Type Department Care Team [...] Info) Description 07/27/2024 11:15 AM EDT Telemedicine [facility] MEDICINE [address] [place] [phone] Name, MD Jamie [address] [place] [address] 09/10/2024 9:00 AM EDT Office Visit [facility] CHC MED & PEDS [address] [place] [address] Javy Dennis MD [address] [place] [address] documented as of this encounter Visit Diagnoses Not on filedocumented in this encounter Additional Health Concerns Assessment Noted Time PHQ-9 Depression Total Score: 13 025 9:35 AM EST documented as of this encounter Care Teams Flume Ride Operator Relationship Specialty Start Date End Date Taylor Iglesias MD [address] [place] [address] PCP - General Family Medicine 12/29/22 documented as of this encounter
== END 2024-07-17 10:06 | disposition home or self-care (01) ==
LOC: HO.NEURO 10:05
PROVIDERS: PCP Family Medicine; Visit Provider Internal Medicine Geriatric Medicine
DX: R20.2 Paresthesia of skin (principal); M79.642 Pain in left hand
CPT/HCPCS: 95886; 95909

== ENCOUNTER 2024-07-24 08:30 | Outpatient (REF) | payer MEDICAID, SELFPAY ==
--- NOTE | 2024-07-24 08:34 | EMG_ITS ---
Left median and ulnar motor and sensory studies were performed. Left radial sensory and median and lateral antecubital brachial sensory studies were performed and paraspinal muscles were tested with a needle. IMPRESSION: Mild left ulnar neuropathy across cubital tunnel. MD VINCE Gan/GIOVANNY / [id number]
--- OUTSIDE RECORDS SUMMARY | 2024-07-24 09:12 | XMS_ITS | Clinical Summary ---
Author Organization [employer] Address [address] [place] [address] Care Team Providers Care Panel Lay Up Worker Name Role Phone Taylor Iglesias MD Primary Care Provider [phone] Allergies No known active allergies Medications * [...] This Visit Other Opioid abuse, in remission ([facility]/HCC) EVGENY (generalized anxiety disorder) Patient ready to address current needs Yes Strengths include willing to seek support PLAN: 1. Follow up with [facility] [place]: Recommended for follow-up: during OBAT appts 2. [...] with Dr. Dennis and CRS team in [place] Assessment & Plan (08/26/2023 11:27 AM EDT): - continue OBAT with Dr. Dennis and CRS team in [place] Assessment & Plan (03/03/2023 5:05 AM EDT): - continue OBAT with Dr. Dennis and CRS team in [place] Assessment & Plan (01/04/2023 9:32 AM EDT): [...] This Visit Other Opioid abuse, in remission (CMS/[facility]) EVGENY (generalized anxiety disorder) Patient ready to address current needs Yes Strengths include willing to seek support PLAN: 1. Follow up with [facility] [place]: Recommended for follow-up: during OBAT appts 2. [...] Description 07/16/2024 9:00 AM EST Office Visit [facility] [address] [place] [address] Javy Dennis MD Opioid type dependence, continuous (CMS/HCC) (Primary Dx) 07/16/2024 Travel 07/11/[address] [address] Kate Joshi RN Opioid abuse ([facility]) 07/09/2024 1:15 PM EST Office Visit [address] [address] Jamie Charlton MD Right hand paresthesia; Left hand pain 07/09/2024 Travel 07/09/[address] [address] Taylor Iglesias MD Nurse Triage 06/28/[address] [phone] Renay Renteria MA chart prep 06/18/2024 Patient Outreach [address] [address] Dejan Fuentes Recovery Supports 06/11/2024 Patient Outreach [address] [address] Dejan Fuentes Recovery Supports 06/08/[address] [facility] [address] [place] [address] Dejan Fuentes Recovery Supports 06/06/[address] [facility] [address] [place] [address] Dejan Fuentes Recovery Supports 05/28/[address] [facility] [address] [place] [address] Dejan Fuentes Recovery Supports 05/28/[address] [facility] [address] [place], [place] [phone] Javy Dennis MD 05/21/2024 9:00 AM EST Office Visit [facility] [address] [place], [place] [phone] Javy Dennis MD Opioid type dependence, continuous (CMS/HCC) (Primary Dx) 05/21/[address] [facility] [address] [place] [address] Dejan Fuentes Recovery Supports 05/21/2024 Travel 05/14/[address] [facility] [address] [place] [address] Fabrizio Jewell RN Opioid abuse ([facility]) from Last 3 Months Immunizations [...] with others, in a hotel, in a prison, living outside on the street, on a [...] Info) Description 07/27/2024 11:[address] [facility] [address] [place], [place] [phone] Name, MD Jamie [address] [place], [place] [phone] 09/10/2024 9:00 AM EDT Office Visit [facility] [address] [place], [place] [phone] Javy Dennis MD [address] [place], [place] [phone] Health Maintenance Due Date Last Done Comments [...] 1-dose 75+ series) 2066 Hepatitis A Vaccines Aged Out 02/08/2023, 02/28/20 21 No longer eligible based on patient's age to complete this topic Hepatitis B Vaccines Completed 08/09/2023, 03/08/2023, 02/08/2023 Influenza Vaccine Completed 03/20/2024, , 03/15/2022, Additional history exists HIV Screening Completed 07/16/2024, 02/20/2021 Hepatitis C Screening Completed 07/16/2024 , 07/16/2024, 02/20/2021 HIB Vaccines Aged Out No longer eligi [...] for STI (sexually transmitted infection) HEPATITIS C VIRAL RNA, QUANTITATIVE, REAL-TIME PCR Routine 07/16/2024 9:43 AM EST T-SPOT(R).TB Routine 07/16/2024 9:43 AM EST Encounter for screening for respiratory tuberculosis CBC WITH AUTO DIFFERENTIAL Routine 07/16/2024 9:43 [...] METABOLIC PANEL Routine 07/16/2024 9:43 AM EST Hypertriglyceridemia Weight loss LIPID PANEL WITH REFLEX TO DIRECT LDL Routine 07/16/2024 9:43 AM EST Hypertriglyceridemia HEPATIC FUNCTION PANEL Routine 07/16/2024 9:43 AM EST Hypertriglyceridemia POCT MIN-14 URINE DRUG SCREEN Routine 07/16/2024 9:17 AM EST Opioid type dependence, continuous (CMS/HCC) POCT MIN-14 URINE DRUG SCREEN Routine 05/21/2024 9:01 AM EST Opioid type dependence, continuous (CMS/HCC) from Last 3 Months Results * Chlamydia/N. Gonorrhoeae RNA, TMA, Urogenitial (07/16/2024 9:50 AM EST) CT PCR NOT DETECTED Not Detect. [facility] Comment:A not detected test result does [...] psychologicalconsequences. NG PCR NOT DETECTED Not Detect. [facility] Comment:A not detected test result does [...] AM EST 07/16/2024 2:19 PM EST Narrative [facility] - 07/16/2024 4:07 PM EST Urine Taylor Iglesias MD LAB MICROBIOLOGY - GENERAL ORDER NANCIE Final Result Performing Organization Address City/[facility] Co de Phone Number [facility] [address] [place] [phone] * Syphilis Screen (07/16/2024 9:43 AM EST) Syphilis Screen Nonreactive Nonreactive [facility] Blood 07/16/2024 9:43 AM EST 07/16/2024 2:17 PM EST Taylor Iglesias MD LAB BLOOD ORDERABLES Final Resul t Performing Organization Address City/[facility] Co de Phone Number [facility] [address] [place] [phone] * T-SPOT??.TB (07/16/2024 9:43 AM EST) [facility] T Spot TB Negative Negative [facility] Comment:A negative test resu lt does not exclude the possibilityof exposure to or infection with Mycobacteriumtuberculosis (M. tuberculosis). Patients with recentexposure to TB infected individuals exhibiting anegative T-SPOT.TB result should be considered forretesting within 6 weeks or if other relevant clinicalsymptoms indicate. Results from T-SPOT.TB testing mustbe used in conjunction with each individual'sepidemiological history, current medical status,and results of other diagnostic evaluations.The T-SPOT.TB test is qualitative and results arereported as positive, borderline, or negative, giventhat the test controls perform as expected. In linewith the Centers for Disease Control and Prevention's2010 recommendation to report quantitative measurementsalongside the qualitative result, the laboratoryprovides spot counts for informational purposes only.The T-SPOT.TB test should not be interpreted as aquantitative test. TS PANEL A 0 [facility] TS PANEL B 0 [facility] Negative Control Passed [facility] Positive Control Passed [facility] Comment:For additional infor lizy, please refer tohttp://education.Entefy/faq/ZBV530(This link is being provided for informational/educational purposes only.)THIS TEST WAS PERFORMED AT:[employer] [place] [id number] WEINSTEIN MD,PHD 07/16/2024 9:43 AM EST 07/16/2024 2:17 PM EST us Taylor Iglesias MD LAB BLOOD ORDERABLES Final Resul t [facility] [address] [place] [address] [phone] * TSH with Reflex to Free T4 (07/16/2024 9:43 AM EST) TSH reflex Free T4 1.18 0.32 - 4.0 uIU/mL [facility] Blood 07/16/2024 9:43 AM EST 07/16/2024 2:17 PM EST Taylor Iglesias MD LAB BLOOD ORDERABLES Final Resul t Performing Organization Address [facility] de Phone Number [facility] [address] [place] [phone] * Lipid Panel with Reflex to Direct LDL (07/16/2024 9:43 AM EST) Triglycerides 91 <150 mg/dL [facility] Comment:Desirable Triglyceri de: less than 150 mg/dLBorderline High Triglyceride 150-199 mg/dLHigh Triglyceride: 200-499 mg/dLVery High Triglyceride: greater than or equal to 5OO mg/dL Cholesterol 140 <200 mg/dL [facility] Comment:Desirable Cholestero l: less than 200 mg/dLBorderline High Cholesterol: 200-239 mg/dLHigh Cholesterol: greater than 239 mg/dL LDL Cholesterol Calculated 75 <100 mg/dL [facility] Comment:Desirable LDL: less than 100 mg/dLNear Optimal/Above Optimal LDL: 110- 129 mg/dLBorderline High LDL: 130-159 mg/dLHigh LDL: 160-189 mg/dLVery High LDL: greater than or equal to 190 mg/dL HDL Cholesterol 47 >40 mg/dL [facility] Comment:Desirable HDL: great er than 40 mg/dL Note: This HDL assay may give artificially low results in patients with liver disease. Blood 07/16/2024 9:43 AM EST 07/16/2024 2:17 PM EST us Taylor Iglesias MD LAB BLOOD ORDERABLES Final Resul t Performing Organization Address [facility] Co de Phone Number [facility] [address] [place] [phone] * Hepatitis C Viral RNA, Quantitative, Real-Time PCR (07/16/2024 9:43 AM EST) Hepatitis C Viral Load <15 NOT DETECTED NOT DETECTED IU/mL [facility] HCV Log PCR <1.18 NOT DETECTED NOT DETECTED Log IU/mL [facility] Comment:For additional infor lizy, please refer tohttp://education.Entefy/faq/JIY62p4(This link is being provided for informational/educational purposes only.)THIS TEST WAS PERFORMED AT:[employer] [place] [id number] MANRIQUE MD 07/16/2024 9:43 AM EST 07/17/2024 8:41 AM EST us Taylor Iglesias MD LAB BLOOD ORDERABLES Final Resul t [facility] [address] [place] [phone] * (ABNORMAL) CBC auto differential (07/16/2024 9:43 AM EST) Pathologist [facility] White Blood Count 6.6 4.8 - 10.8 X10*3/uL [facility] Red Blood Count 4.64 4.60 - 5.80 X10*6/uL [facility] Hemoglobin 14.6 14.0 - 18.0 g/dl [facility] Hematocrit 42.5 42.0 - 52.0 % [facility] Mean Corpuscular Volume 91.6 80.0 - 98.0 fL [facility] Mean Corpuscular Hemoglobin 31.5 27.0 - 33.0 pg [facility] Mean Corpuscular HGB Conc 34.4 31.0 - 36.0 g/dl [facility] Red Cell Distribution Width 13.7 11.0 - 16.0 % [facility] Platelet Count 234 160 - 400 X10*3/uL [facility] Mean Platelet Volume 11.2 9.4 - 12.4 fL [facility] Neutrophils Percent Auto 67.3 45 - 73 % [facility] Imm Gran Pct Auto 0.5(H) 0.0 - 0.4 % [facility] Lymphocytes Percent Auto 20.6 20 - 40 % [facility] Monocytes Percent Auto 9.1 2 - 11 % [facility] Eosinophils Percent Auto 2.0 0 - 4 % [facility] Basophils Percent Auto 0.5 0 - 2 % [facility] NRBC Pct Auto 0.0 0.0 - 0.2 /100WBC [facility] Neutrophils Absolute Auto 4.5 2.0 - 8.3 x10*3/uL [facility] Imm Gran Abs Auto 0.03 0.00 - 0.03 X10*3/uL [facility] Lymphocytes Absolute Auto 1.4 1.2 - 4.9 X10*3/uL [facility] Monocytes Absolute Auto 0.6 0.1 - 1.2 X10*3/uL [facility] Eosinophils Absolute Auto 0.1 0.0 - 0.4 X10*3/uL [facility] Basophils Absolute Auto 0.0 0.0 - 0.2 X10*3/uL [facility] NRBC Abs Auto 0.000 0.0 - 0.012 X10*3/uL [facility] Blood Venous blood specimen / Unknown 07/16/2024 9:43 AM EST 07/16/2024 2:17 PM EST us Taylor Iglesias MD LAB BLOOD ORDERABLES Final Resul t [facility] [address] [place] [phone] [phone] * (ABNORMAL) Hepatitis C Antibody with Reflex to HCV, RNA, Quantitative, Real- Time PCR (07/16/2024 9:43 AM EST) Hepatitis C Antibody Reactive( A) Nonreactive [facility] Comment:Presumptive evidence of antibodies to HCV. Blood Venous blood specimen / Unknown 07/16/2024 9:43 AM EST 07/16/2024 2:17 PM EST us Taylor Iglesias MD LAB BLOOD ORDERABLES Final Resul t Performing Organization Address [facility] Co de Phone Number [facility] [address] [place] [phone] * Hepatitis A Antibody, Total (07/16/2024 9:43 AM EST) Hepatitis A Antibody IgG REACTIVE Nonreactive [facility] Comment:The presence of IgG anti-HAV implies past HAV infection(recent or distant) or vaccination against HAV. Blood Venous blood specimen / Unknown 07/16/2024 9:43 AM EST 07/16/2024 2:17 PM EST us Taylor Iglesias MD LAB BLOOD ORDERABLES Final Resul t Performing Organization Address [facility] de Phone Number [facility] [address] [place] [phone] * Hepatitis B surface antigen, EIA (07/16/2024 9:43 AM EST) Hepatitis B Surface Ag Negative Negative [facility] Blood Venous blood specimen / Unknown 07/16/2024 9:43 AM EST 07/16/2024 2:17 PM EST us Taylor Iglesias MD LAB BLOOD ORDERABLES Final Resul t Performing Organization Address [facility] Co de Phone Number [facility] [address] [place] [phone] * Hepatitis B Core Antibody, Total (07/16/2024 9:43 AM EST) Hepatitis B Core Antibody Nonreactive Nonreactive [facility] Blood Venous blood specimen / Unknown 07/16/2024 9:43 AM EST 07/16/2024 2:17 PM EST us Taylor Iglesias MD LAB BLOOD ORDERABLES Final Resul t Performing Organization Address [facility] Co de Phone Number [facility] [address] [place] [phone] * HIV-1/2 Antigen and Antibodies, Fourth Generation, with Reflexes (07/16/2024 9:43 AM EST) HIV AB/AG Nonreactive Nonreactive [facility] Comment:HIV-1 p24 Ag and/or HIV-1/HIV-2 Ab not detected.A test result that is nonreactive does not exclude thepossibility of exposure to or infection with HIV-1 and/orHIV-2. Nonreactive results in this assay for individualswith prior exposure to HIV-1 and/or HIV-2 may be due toantigen and antibody levels that are below the limit ofdetection of this assay.The [employer] HIV Ag/Ab Combo assay result andsupplemental assay results should be interpreted inconjunction with the patient's clinical presentation,history and other laboratory results. If the results areinconsistent with clinical evidence, additional testing issuggested to confirm the result. Blood Venous blood specimen / Unknown 07/16/2024 9:43 AM EST 07/16/2024 2:17 PM EST us Taylor Iglesias MD LAB BLOOD ORDERABLES Final Resul t Performing Organization Address [facility] Co de Phone Number [facility] [address] [place] [phone] * Hepatitis B Surface Antibody, Qualitative (07/16/2024 9:43 AM EST) ~Hepatitis B Surface Antibody REACTIVE Nonreactive [facility] Comment:REACTIVE: > 11.99 mI U/mL Blood Venous blood specimen / Unknown 07/16/2024 9:43 AM EST 07/16/2024 2:17 PM EST Taylor Iglesias MD LAB BLOOD ORDERABLES Final Resul t [facility] [address] [place] [phone] * Hepatic Function Panel (07/16/2024 9:43 AM EST) [facility] Bilirubin, Total 0.3 0.0 - 1.0 mg/dL [facility] Bilirubin, Direct 0.1 0.0 - 0.5 mg/dL [facility] Aspartate Amino Transferase 32 5 - 37 U/L [facility] Alanine Aminotransferase 35 0 - 40 U/L [facility] Total Protein 7.9 6.5 - 8.0 g/dL [facility] Albumin Level 4.5 3.5 - 5.0 g/dL [facility] Alkaline Phosphatase 78 39 - 117 U/L [facility] Blood Venous blood specimen / Unknown 07/16/2024 9:43 AM EST 07/16/2024 2:17 PM EST us Taylor Iglesias MD LAB BLOOD ORDERABLES Final Resul t Performing Organization Address City/State/[facility] Co de Phone Number [facility] [address] [place] [phone] * (ABNORMAL) Basic Metabolic Panel (07/16/2024 9:43 AM EST) [facility] Sodium 139 135 - 145 mmol/L [facility] Potassium 4.1 3.3 - 5.1 mmol/L [facility] Chloride 108 96 - 108 mmol/L [facility] Carbon Dioxide 23 22 - 29 mmol/L [facility] Anion Gap 12 12 - 20 [facility] Urea Nitrogen (BUN) 12 9 - 16 mg/dL [facility] Creatinine, Serum 0.72 0.5 - 1.4 mg/dL [facility] Estimated Glomerular Filt Rate >60 [facility] Comment:Chronic Kidney Disea se: Estimated GFR < 60 mL/min/1.35m7Osronv Kidney Disease: Estimated GFR < 15 mL/min/1.73m2 Glucose 140(H) 60 - 115 mg/dL [facility] Calcium 9.0 8.4 - 10.2 mg/dL [facility] Blood Venous blood specimen / Unknown 07/16/2024 9:43 AM EST 07/16/2024 2:17 PM EST us Taylor Iglesias MD LAB BLOOD ORDERABLES Final Resul t [facility] [address] [place] [phone] * POCT MIN-14 Urine Drug Screen [...] Final Result from Last 3 Months Insurance [facility] C3 Care Teams Panel Lay Up Worker Relationship Specialty Start Date End Date Taylor Iglesias MD [address] [place] [phone] PCP - General Family Medicine 12/29/22
--- OUTSIDE RECORDS SUMMARY | 2024-07-24 09:12 | XMS_ITS | Encounter Summary ---
Author Organization [employer] Address [address] [place] [address] Care Team Providers Care Mechanical Inspector Name Role Phone Taylor Iglesias MD Primary Care Provider [phone] Encounter Details Date Type Department Care Team [...] with others, in a hotel, in a chcf, living outside on the street, on a [...] Info) Description 07/27/2024 11:15 AM EDT Telemedicine [facility] [address] [place] [phone] Name, MD Jamie [address] [place] [phone] 09/10/2024 9:00 AM EDT Office Visit [facility] [address] [place] [address] Javy Dennis MD [address] [place] [phone] documented as of this encounter Visit Diagnoses Not on filedocumented in this encounter Additional Health Concerns Assessment Noted Time PHQ-9 Depression Total Score: 13 025 9:35 AM EST documented as of this encounter Care Teams Mechanical Inspector Relationship Specialty Start Date End Date Taylor Iglesias MD [address] [place] [phone] PCP - General Family Medicine 12/29/22 documented as of this encounter
--- OUTSIDE RECORDS SUMMARY | 2024-07-24 09:12 | XMS_ITS | Encounter Summary ---
Author Organization [employer] Address [address] [place] [address] Care Team Providers Care Senior It Security Analyst Name Role Phone Taylor Iglesias MD Primary Care Provider [phone] Reason for Visit * Reason Onset Date Comments Med Refill 07/11/2024 Encounter Details Date Type Department Care Team (Late st Contact Info) Description 07/11/2024 Refill [facility] [address] [place] [address] Kate Joshi, RN Opioid abuse (CMS/[facility]) Social History Tobacco Use Types Packs/Day Years [...] Info) Description 07/27/2024 11:15 AM EDT Telemedicine [facility] [address] [place] [phone] Name, MD Jamie [address] [place] [address] 09/10/2024 9:00 AM EDT Office Visit [facility] [address] [place] [address] Javy Dennis MD [address] [place] [address] documented as of this encounter Visit Diagnoses Diagnosis Opioid abuse (CMS/HCC) Nondependent opioid abuse, unspecified documented in this encounter Additional Health Concerns Assessment Noted Time PHQ-9 Depression Total Score: 13 025 9:35 AM EST documented as of this encounter Care Teams Senior It Security Analyst Relationship Specialty Start Date End Date Taylor Iglesias MD [address] [place] [phone] PCP - General Family Medicine 12/29/22 documented as of this encounter
--- OUTSIDE RECORDS SUMMARY | 2024-07-24 09:12 | XMS_ITS | Encounter Summary ---
Author Organization [employer] Address [address] [place] [address] Care Team Providers Care Access Spec Name Role Phone Taylor Iglesias MD Primary Care Provider [phone] Reason for Visit * Reason Comments OBAT F/U Encounter Details Date Type Department Care Team ([facility] st Contact Info) Description 07/16/2024 9:00 AM EST Office Visit [facility] [address] [place] [address] Javy Dennis MD [address] [place] [phone] Opioid type dependence, continuous (CMS/HCC) (Primary Dx) [...] with others, in a hotel, in a custodial, living outside on the street, on a [...] in 08/2021 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 Met with today Started a GED program; [...] in 08/2021 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 Started a GED program; will also pursue [employer] Community Geriatric Assistant information given to assist with his outstanding [...] for this visit: Opioid type dependence, continuous (CMS/[facility]) (Primary) - POCT MIN-14 Urine Drug Screen [...] Info) Description 07/27/2024 11:15 AM EDT Telemedicine [facility] [address] [place] [address] Name, MD Jamie [address] [place] [address] 09/10/2024 9:00 AM EDT Office Visit [facility] [address] [place] [address] Javy Dennis MD [address] [place] [address] documented as of this encounter Procedures Procedure [...] documented as of this encounter Care Teams Access Spec Relationship Specialty Start Date End Date Taylor Iglesias MD [address] [place] [phone] PCP - General Family Medicine 12/29/22 documented as of this encounter
--- OUTSIDE RECORDS SUMMARY | 2024-07-24 09:12 | XMS_ITS | Encounter Summary ---
Author Organization [employer] Address [address] [place] [address] Care Team Providers Care Denture Finisher Name Role Phone Taylor Iglesias MD Primary Care Provider Encounter Details Date Type Department Care Team [...] Info) Description 07/27/2024 11:15 AM EDT Telemedicine [facility] [address] [place] [phone] Name, MD Jamie [address] [place] [address] 09/10/2024 9:00 AM EDT Office Visit [facility] [address] [place] [address] Javy Dennis MD [address] [place] [address] documented as of this encounter Visit Diagnoses Not on filedocumented in this encounter Additional Health Concerns Assessment Noted Time PHQ-9 Depression Total Score: 13 025 9:35 AM EST documented as of this encounter Care Teams Denture Finisher Relationship Specialty Start Date End Date Taylor Iglesias MD [address] [place] [address] PCP - General Family Medicine 12/29/22 documented as of this encounter
--- OUTSIDE RECORDS SUMMARY | 2024-07-24 09:13 | XMS_ITS | Encounter Summary ---
Author Organization [employer] Address 75 [facility] 7t [place] [address] Care Team Providers Care Inpatient Coder Name Role Phone Taylor Iglesias MD Primary Care Provider [phone] Reason for Referral * Neurology (Routine) - Closed Specialty Diagnoses / Procedures Referred By Contac t Referred To Contact Diagnoses Right hand paresthesia Left hand pain Procedures Nerve conduction test NameJamie MD [address] [place] [address] Phone: tel: fax: [address] Phone: tel: fax: Referral ID Status Reason Start Date Expiration Date Visits Re quested Visits Authorized [id number] Closed 07/09/2024 07/09/2025 1 1 Reason for Visit * Reason Comments hand pain and paresthesia Encounter Details Date Type Department Care Team (Late st Contact Info) Description 07/09/2024 1:15 PM EST Office Visit [facility] [address] [place] [address] [phone] Name, MD Jamie [address] [place] [address] [phone] Right hand paresthesia; Left hand pain Social [...] Info) Description 07/27/2024 11:15 AM EDT Telemedicine [facility] [address] [place] [address] Name, MD Jamie [address] [place] [address] 09/10/2024 9:00 AM EDT Office Visit [facility] [address] [place] [address] Javy Dennis MD [address] [place] [address] Scheduled Orders Name Type Priority Associated Diagnoses [...] documented as of this encounter Care Teams Inpatient Coder Relationship Specialty Start Date End Date Taylor Iglesias MD [address] [place] [address] PCP - General Family Medicine 12/29/22 documented as of this encounter
--- OUTSIDE RECORDS SUMMARY | 2024-07-24 09:13 | XMS_ITS | Encounter Summary ---
Author Organization [employer] Address 75 [facility] 7t [place] [address] Care Team Providers Care Recruitment Specialist Name Role Phone Taylor Iglesias MD Primary Care Provider [phone] Reason for Visit * Reason Onset Date Comments Nurse Triage 07/09/2024 Encounter Details Date Type Department Care Team ([facility] st Contact Info) Description 07/09/2024 Telephone [facility] [address] [place], [place] [phone] Taylor Iglesias MD [address] [place] [address] Nurse Triage Social History Tobacco Use Types [...] with others, in a hotel, in a care home, living outside on the street, on a [...] patient who reports that he went to [facility] on [address] last Tuesday ( 8 days ago) patient with pain in wrist and numbness in last 3 fingers of right hand. Patient reports xrays done no known outcome. Has noted swelling of hand but no redness. Was prescribed motrin 800mg PRNthat has been minimally helpful. Patient reports decreased respiratory care technician strength as related to pain and that [...] caller accepted this outcome. Contact pt at [phone] documented in this encounter Plan of Treatment Upcoming Encounters Date Type Department Care Team (Late st Contact Info) Description 07/27/2024 11:15 AM EDT Telemedicine [facility] [address] [place] [phone] Name, MD Jamie [address] [place] [address] 09/10/2024 9:00 AM EDT Office Visit [facility] [address] [place] [address] Javy Dennis MD [address] [place] [address] documented as of this encounter Visit Diagnoses Not on filedocumented in this encounter Additional Health Concerns Assessment Noted Time PHQ-9 Depression Total Score: 13 025 9:35 AM EST documented as of this encounter Care Teams Recruitment Specialist Relationship Specialty Start Date End Date Taylor Iglesias MD [address] [place] [phone] PCP - General Family Medicine 12/29/22 documented as of this encounter
--- OUTSIDE RECORDS SUMMARY | 2024-07-24 09:13 | XMS_ITS | Encounter Summary ---
Author Organization [employer] Address [address] [facility] [address] 7[address] [place] [address] Care Team Providers Care Informatics Physician Liaison Name Role Phone Taylor Iglesias MD Primary Care Provider [phone] Encounter Details Date Type Department Care Team ([facility] st Contact Info) Description 08/15/2023 Orders Only [facility] [address] [place] [address] [phone] Taylor Iglesias MD [address] [place], [place] [phone] Social History Tobacco Use Types Packs/Day Years [...] Info) Description 07/27/2024 11:15 AM EDT Telemedicine [facility] [address] [place] [address] Name, MD Jamie [address] [place] [address] 09/10/2024 9:00 AM EDT Office Visit [facility] [address] [place], [place] [phone] Javy Dennis MD [address] [place] [address] documented as of this encounter Procedures Procedure Name Priority Date/Time Associated Diagnosis Comments HEPATITIS C VIRAL RNA, QUANTITATIVE, REAL-TIME PCR Routine 07/16/2024 9:43 AM EST documented in this encounter Results * Hepatitis C Viral RNA, Quantitative, Real-Time PCR (07/16/2024 9:43 AM EST) Hepatitis C Viral Load <15 NOT DETECTED NOT DETECTED IU/mL [facility] HCV Log PCR <1.18 NOT DETECTED NOT DETECTED Log IU/mL [facility] Comment:For additional infor mation, please refer tohttp://education.[employer]/faq/WZH36z4(This link is being provided for informational/educational purposes only.)THIS TEST WAS PERFORMED AT:[employer] [place] [id number] MANRIQUE MD 07/16/2024 9:43 AM EST 07/17/2024 8:41 AM EST us Taylor Iglesias MD LAB BLOOD ORDERABLES Final Resul t [facility] [address] [place] [address] [phone] documented in this encounter Visit Diagnoses Not on filedocumented in this encounter Additional Health Concerns Assessment Noted Time PHQ-9 Depression Total Score: 0 08/09/19 24 3:54 PM EDT documented as of this encounter Care Teams Informatics Physician Liaison Relationship Specialty Start Date End Date Taylor Iglesias MD [address] [place] [address] PCP - General Family Medicine 12/29/22 documented as of this encounter
--- OUTSIDE RECORDS SUMMARY | 2024-07-24 09:13 | XMS_ITS | Encounter Summary ---
Author Organization [employer] Address [address] [facility] [address] 7t [place] [address] Care Team Providers Care Yarder Operator Name Role Phone Taylor Iglesias MD Primary Care Provider [phone] Reason for Visit * Reason Onset Date Comments chart prep 06/28/2024 Encounter Details Date Type Department Care Team ([facility] st Contact Info) Description 06/28/2024 Telephone [facility] [address] [place], [place] [phone] Renay Renteria [place] chart prep Social History [...] with others, in a hotel, in a assisted, living outside on the street, on a [...] Info) Description 07/27/2024 11:15 AM EDT Telemedicine [facility] [address] [place] [address] Name, MD Jamie [address] [place] [address] 09/10/2024 9:00 AM EDT Office Visit [facility] MED [facility] PEDS [address] [place] [address] Javy Dennis MD [address] [place] [address] documented as of this encounter Visit Diagnoses Not on filedocumented in this encounter Additional Health Concerns Assessment Noted Time PHQ-9 Depression Total Score: 13 025 9:35 AM EST documented as of this encounter Care Teams Yarder Operator Relationship Specialty Start Date End Date Taylor Iglesias MD [address] [place] [address] PCP - General Family Medicine 12/29/22 documented as of this encounter
--- OUTSIDE RECORDS SUMMARY | 2024-07-24 09:13 | XMS_ITS | Encounter Summary ---
Author Organization [employer] Address 75 [facility] 7t [place] [address] Care Team Providers Care Radio Board Operator Name Role Phone Taylor Iglesias MD Primary Care Provider [phone] Reason for Visit * Reason Comments Med Refill Encounter Details Date Type Department Care Team ([facility] Contact Info) Description 04/14/2023 Refill [facility] [address] [place], [place] [phone] Taylor Iglesias MD [address] [place], [place] [phone] Social History Tobacco Use Types Packs/Day Years [...] Info) Description 07/27/2024 11:15 AM EDT Telemedicine [facility] [address] [place] [address] Name, MD Jamie [address] [place] [phone] 09/10/2024 9:00 AM EDT Office Visit [facility] [address] [place] [address] Javy Dennis MD [address] [place] [phone] documented as of this encounter Visit Diagnoses Not on filedocumented in this encounter Additional Health Concerns Assessment Noted Time PHQ-9 Depression Total Score: 4 01/05/20 23 9:06 AM EDT documented as of this encounter Care Teams Radio Board Operator Relationship Specialty Start Date End Date Taylor Iglesias MD [address] [place] [phone] PCP - General Family Medicine 12/29/22 documented as of this encounter
== END 2024-07-24 08:31 | disposition home or self-care (01) ==
LOC: HO.NEURO 08:30
PROVIDERS: PCP Family Medicine; Visit Provider Internal Medicine Geriatric Medicine
DX: R20.2 Paresthesia of skin (principal); M79.642 Pain in left hand
CPT/HCPCS: 95886; 95910

== ENCOUNTER 2024-09-11 08:55 | Outpatient (AMB) | payer MEDICAID, SELFPAY ==
--- NOTE | 2024-09-11 09:07 | A.OFFVIS_ITS ---
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 Patient reports that he has numbness and tingling on the Right ring and middle and ring finger, along with right wrist pain. On the left side he feels numbness and tingling on the pointer, middle and ring fingers - pain in the wrist radiates to the elbow. The pain in the left elbow is felt on the lateral aspect of the elow . EMG/NCS done on 07/24/24 IMPRESSION: Mild left ulnar neuropathy across cubital tunnel. 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 Patient reports that he has numbness and tingling on the Right ring and middle and ring finger, along with right wrist pain. On the left side he feels numbness and tingling on the pointer, middle and ring fingers - pain in the wrist radiates to the elbow. The pain in the left elbow is felt on the lateral aspect of the elow . EMG/NCS done on 07/24/24 IMPRESSION: Mild right carpal tunnel syndrome Mild left ulnar neuropathy across cubital tunnel. REPLACED BY [facility] Medical History (Updated 09/13/24 @ 10:16 by ZHEN Miller) Drug abuse Social History (System 03/21/24 @ 15:00 by Kate Galaviz) Advance Directives: No Advance Directives Information Provided: Yes Review of Systems Const All systems reviewed & are unremarkable except as noted in HPI and below Physical Exam Vital Signs: BMI result Body Mass Index 29.6 Extrem Other: Neuro: Normal sensation of the tips of all digits of bilateral hands in the office today No thenar or intrinsic wasting. Good APB muscle firing and good finger cross. Vascular: Capillary refill brisk. ROM: Patient can make a fist and extend all their digits. Skin: No lacerations or abrasions noted. General: No ecchymosis. No erythema or evidence of infection. Assessment & Plan Assessment & Plan (1) Right carpal tunnel syndrome: Code(s): G56.01 - Carpal tunnel syndrome, right upper limb Category: Medical Plan 1. Right carpal tunnel syndrome Intermittent, daily, worse at night I educated the patient about the condition. I discussed both operative and nonoperative treatment options. The patient would like to proceed with surgery. The risks and benefits of operative treatment were discussed with the patient and the patient wishes to proceed with surgery. These risks include, but are not limited to, risk of damage to blood vessels, nerves, tendons, infection, recurrence, incomplete relief of preoperative symptoms, persistent pain, possible need for further surgery, and the risks associated with regional blocks and/or anesthesia. Plan is to take the patient to the operating room at some point in the next few weeks for the following procedures: 1. Right carpal tunnel release under local All of the preoperative paperwork including the consent was discussed today. All of the patient's questions were answered in the clinic today. The patient understands that they will be in contact with our medical surgical tech to discuss scheduling their procedure. Patient denies diabetes, blood thinners, asthma, heart issues, lung issues, kidney issues, or current smoking. Coding Level of Care Code New Pt Level 4 (17979) Diagnoses Right carpal tunnel syndrome G56.01
[2024-09-11 09:08] VITALS: BMI 29.6
--- OUTSIDE RECORDS SUMMARY | 2024-09-11 09:27 | XMS_ITS | Encounter Summary ---
Author Organization [employer] Address [address] [facility] [address] 7[address] [place] [address] Care Team Providers Care Core Manager Name Role Phone Taylor Iglesias MD Primary Care Provider [phone] Encounter Details Date Type Department Care Team (Latest Contact Info) Description 09/10/2024 Travel Social History Tobacco Use Types Packs/Day [...] Care Team (Late st Contact Info) Description 11/05/2024 9:00 AM EDT Clinical Support [facility] [address] [place] [address] Kate Joshi RN documented as of this encounter Visit Diagnoses Not on filedocumented in this encounter Additional Health Concerns Assessment Noted Time PHQ-9 Depression Total Score: 13 025 9:35 AM EST documented as of this encounter Care Teams Core Manager Relationship Specialty Start Date End Date Taylor Iglesias MD [address] [place] [phone] PCP - General Family Medicine 12/29/22 documented as of this encounter
--- OUTSIDE RECORDS SUMMARY | 2024-09-11 09:27 | XMS_ITS | Encounter Summary ---
Author Organization [employer] Address [address] [facility] [address] 7t [place] [address] Care Team Providers Care Parts And Service Manager Name Role Phone Taylor Iglesias MD Primary Care Provider [phone] Encounter Details Date Type Department Care Team ([facility] st Contact Info) Description 08/15/2023 Orders Only [facility] [address] [place] [address] [phone] Taylor Iglesias MD [address] [place], [place] [phone] Social History Tobacco Use Types Packs/Day Years [...] others, in a hotel, in a senior care, living outside on the street, on a [...] Description 11/05/2024 9:00 AM EDT Clinical Support [facility] & P[facility]S [address] [place] [address] Kate Joshi RN documented as of this encounter Procedures Procedure Name Priority Date/Time Associated Diagnosis Comments HEPATITIS C VIRAL RNA, QUANTITATIVE, REAL-TIME PCR Routine 07/16/2024 9:43 AM EST documented in this encounter Results * Hepatitis C Viral RNA, Quantitative, Real-Time PCR (07/16/2024 9:43 AM EST) Hepatitis C Viral Load <15 NOT DETECTED NOT DETECTED IU/mL [facility] HCV Log PCR <1.18 NOT DETECTED NOT DETECTED Log IU/mL [facility] Comment:For additional infor lizy, please refer tohttp://education.[employer]/faq/MGD83h8(This link is being provided for informational/educational purposes only.)THIS TEST WAS PERFORMED AT:[employer] [place] [id number] MANRIQUE MD 07/16/2024 9:43 AM EST 07/17/2024 8:41 AM EST us Taylor Iglesias MD LAB BLOOD ORDERABLES Final Resul t [facility] [address] [place] [address] [phone] documented in this encounter Visit Diagnoses Not on filedocumented in this encounter Additional Health Concerns Assessment Noted Time PHQ-9 Depression Total Score: 0 08/09/19 24 3:54 PM EDT documented as of this encounter Care Teams Parts And Service Manager Relationship Specialty Start Date End Date Taylor Iglesias MD [address] [place] [address] PCP - General Family Medicine 12/29/22 documented as of this encounter
--- OUTSIDE RECORDS SUMMARY | 2024-09-11 09:27 | XMS_ITS | Encounter Summary ---
Author Organization [employer] Address 75 [facility] 7t [place] [address] Care Team Providers Care Senior Application Security Consultant Name Role Phone Taylor Iglesias MD Primary Care Provider [phone] Reason for Visit * Reason Comments OBAT F/U Encounter Details Date Type Department Care Team ([facility] st Contact Info) Description 09/10/2024 9:00 AM EDT Office Visit [facility] [address] [place] [address] Javy Dennis MD [address] [place] [phone] Opioid type dependence, continuous (CMS/HCC) (Primary Dx) [...] with others, in a hotel, in a snf, living outside on the street, on a [...] Progress Notes * Javy Dennis MD - 09/10/2024 9:00 AM EDT Patient here today for Opioid Dependence RV Patient on current Suboxone dose of 16/4mg on a 8-week schedule Patient reports taking medication as prescribed, no cravings or adverse effects Pt has been in the program for 3 years 6 months. Induction date: 03/16/2021 PCP appt 02/08/23. 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 in pursuing training to become a Certified Medical Dosimetrist Started a GED program; will also pursue CDL Community Account Relationship Manager information given to assist with his outstanding traffic ticket which is limiting his CDL pursuit Has two children Christian (1 year) and Jamie (2 years) Suboxone dosing schedule of 16/4mg daily and management of side effects reviewed Encouraged to get lab work done Recovery support, harm reduction, and behavioral health attendance reviewed Patient expressed understanding and agreement with continuing plan of care TODAY VISIT 09/10/2024 UTOX: POS BUP, THC Patient presents for OUD OBAT appointment Overall doing well since his detox in 08/2021 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 Porter was seen today for obat f/u. Diagnoses and all orders for this visit: Opioid type dependence, continuous ([facility]) (Primary) - POCT MIN-14 Urine Drug Screen Patient presents for a routine OUD OBAT visit Discussed treatment options for opioid dependence Patient is tolerating current treatment of Buprenorphine/Naloxone Discussed behavioral modification and accessing services Counseling [...] Description 11/05/2024 9:00 AM EDT Clinical Support [facility] [address] [place] [address] Kate Joshi, RN documented as of this encounter Procedures Procedure Name Priority Date/Time Associated Diagnosis Comments POCT MIN-14 URINE DRUG SCREEN Routine 09/10/2024 9:19 AM EDT Opioid type dependence, continuous (CMS/HCC) documented in this encounter Results * POCT MIN-14 Urine Drug Screen (09/10/2024 9:19 AM EDT) THC Positive Cocaine Screen, Urine Negative Opiate Screen, Urine Negative Methamphetamine Screen Urine Negative Amphetamine Screen, Urine Negative Benzodiazepines Screen, Urine Negative Barbiturate Screen, Urine Negative Methadone Screen, Urine Negative Buprenophine Screen, Urine Positive TCA, Urine Negative MDMA Urine Negative ng/mL Oxycodone Screen, Urine Negative Phencyclidine (PCP), Urine Negative Fentanyl, Urine Negative Urine Urine specimen obtained by clean catch procedure / Unknown 09/10/2024 9:19 AM EDT us Javy Dennis MD POINT OF CARE TEST ENTER/EDIT OR DERABLES Final Result documented in this encounter Visit Diagnoses Diagnosis Opioid type dependence, continuous (CMS/HCC)- Primary Opioid type dependence, continuous documented in this encounter Additional Health Concerns Assessment Noted Time PHQ-9 Depression Total Score: 13 05/25/ 025 9:35 AM EST documented as of this encounter Care Teams Senior Application Security Consultant Relationship Specialty Start Date End Date Taylor Iglesias MD [address] [place] [phone] PCP - General Family Medicine 12/29/22 documented as of this encounter
--- OUTSIDE RECORDS SUMMARY | 2024-09-11 09:27 | XMS_ITS | Clinical Summary ---
Author Organization [employer] Address [address] [facility] [address] [place] [address] Care Team Providers Care Box Annealer Name Role Phone Taylor Iglesias MD Primary Care Provider [phone] Allergies No known active allergies Medications * [...] Once per day. Do not start before September 10, 2024. 56 Film 1 025 2024 Active Suboxone 8-2 MG SL filmIndication s:Opioid abuse (CMS/HCC) Place 2 Film under the tongue Once per day. Do not start before July 16, 2024. 56 Film 1 025 2024 Discontinued(R eorder (will not trigger notification [...] Patient will benefit from keeping connecting with -MR and IB follow up for support. At this time Porter Hinton meets criteria for Visit Diagnoses: Problem List Items Addressed This Visit Other Opioid abuse, in remission (CMS/HCC) EVGENY (generalized anxiety disorder) Patient ready to [...] with Dr. Dennis and CRS team in [place] Assessment & Plan (08/26/2023 11:27 AM EDT): - continue OBAT with Dr. Dennis and CRS team in [place] Assessment & Plan (03/03/2023 5:05 AM EDT): - continue OBAT with Dr. Dennis and CRS team in [place] Assessment & Plan (01/04/2023 9:32 AM EDT): [...] This Visit Other Opioid abuse, in remission (CMS/HCC) EVGENY (generalized anxiety disorder) Patient ready to [...] organization. Date Type Department Care Team Description 09/10/2024 9:00 AM EDT Office Visit [facility] [address] [place] [address] Javy Dennis MD Opioid type dependence, continuous (CMS/HCC) (Primary Dx) 09/10/2024 Travel 09/04/2024 Refill [facility] [address] [place] [address] Kate Joshi, RN Opioid abuse (CMS/HCC) 08/08/2024 Population Health Risk Score [facility] () Department [address] [place] [phone] Provider, Population Health Generic 07/27/2024 11:15 AM EDT Telemedicine [facility] [address] [place] [address] Jamie Charlton MD Right carpal tunnel syndrome (Primary Dx); Cubital tunnel syndrome on left 07/16/2024 9:00 AM EST Office Visit [facility] [address] [place] [address] Javy Dennis MD Opioid type dependence, continuous (CMS/HCC) (Primary Dx) 07/16/2024 Travel 07/11/2024 Refill [facility] [address] [place] [address] Kate Joshi, ERIKA Opioid abuse ([facility]) 07/09/2024 1:15 PM EST Office Visit [address] [address] Jamie Charlton MD Right hand paresthesia; Left hand pain 07/09/2024 Travel 07/09/[address] [address] Taylor Iglesias MD Nurse Triage 06/28/[address] [address] Renay Renteria MA chart prep 06/18/2024 Patient Outreach [address] [phone] Dejan Fuentes Recovery Supports from Last 3 Months Immunizations Name Administration [...] Description 11/05/2024 9:00 AM EDT Clinical Support [facility] [address] [place] [address] Kate Joshi, RN Health Maintenance Due Date Last Done Comments Alcohol/Substance Use Screening 2003 Family Planning (PISQ) 2006 Pneumococcal Vaccine: Pediatrics (0 to 5 Years) and At-Risk Patients (6 to 49) Years) (1 of 2 - PCV) 2010 COVID-19 Vaccine (4 - season) 2024 11/03/2021, 01/20/2021, 12/09/2020 SDOH Screening 02/02/2024 02/01/2023 Tobacco Screening 03/20/2025 03/20/2024 Depression Screening 05/25/2025 05/25/2024, 05/25/19 Lipid Panel 07/16/2029 07/16/2024, 02/11/2023 DTaP/Tdap/Td Vaccines [...] AM EDT Opioid type dependence, continuous (CMS/HCC) CHLAMYDIA/N. GONORRHOEAE RNA, TMA, UROGENITAL Routine 07/16/2024 [...] (CMS/HCC) from Last 3 Months Results * POCT MIN-14 Urine Drug Screen (09/10/2024 9:19 AM EDT) Only the most recent of2 resultswithin the time period is included. Pathologist [facility] THC Positive Cocaine Screen, Urine Negative Opiate [...] procedure / Unknown 09/10/2024 9:19 AM EDT Javy Dennis MD POINT OF CARE TEST ENTER/EDIT OR DERABLES Final Result * Chlamydia/N. Gonorrhoeae RNA, TMA, Urogenitial (07/16/2024 9:50 AM EST) [facility] CT PCR NOT DETECTED Not Detect. [facility] Comment:A not detected test result [...] psychologicalconsequences. NG PCR NOT DETECTED Not Detect. [facility] Comment:A not detected test result [...] AM EST 07/16/2024 2:19 PM EST Narrative [facility] - 07/16/2024 4:07 PM EST Urine Taylor Iglesias MD LAB MICROBIOLOGY - GENERAL ORDER NANCIE Final Result Performing Organization Address [facility] Co de Phone Number [facility] [address] [place] [phone] * Syphilis Screen (07/16/2024 9:43 AM EST) Pathologist [facility] Syphilis Screen Nonreactive Nonreactive [facility] Blood 07/16/2024 9:43 AM EST 07/16/2024 2:17 PM EST Taylor Iglesias MD LAB BLOOD ORDERABLES Final Resul t Performing Organization Address [facility] Co de Phone Number [facility] [address] [place] [phone] * T-SPOT??.TB (07/16/2024 9:43 AM EST) T Spot TB Negative Negative [facility] Comment:A negative test resu lt [...] as aquantitative test. TS PANEL A 0 [facility] TS PANEL B 0 [facility] Negative Control Passed [facility] Positive Control Passed [facility] Comment:For additional infor mation, please refer tohttp://education.[employer]/faq/PDC196(This link is being provided for informational/educational purposes only.)THIS TEST WAS PERFORMED AT:[id number] [place] [id number] WEINSTEIN MD,PHD 07/16/2024 9:43 AM EST 07/16/2024 2:17 PM EST us Taylor Iglesias MD LAB BLOOD ORDERABLES Final Resul t [facility] [address] [place] [address] [phone] * TSH with Reflex to Free T4 (07/16/2024 9:43 AM EST) Pathologist [facility] TSH reflex Free T4 1.18 0.32 - 4.0 uIU/mL [facility] Blood 07/16/2024 9:43 AM EST 07/16/2024 2:17 PM EST us Taylor Iglesias MD LAB BLOOD ORDERABLES Final Resul t Performing Organization Address [facility] Co de Phone Number [facility] [address] [place] [phone] * Lipid Panel with Reflex to Direct LDL (07/16/2024 9:43 AM EST) Triglycerides 91 <150 mg/dL [facility] Comment:Desirable Triglyceri de: less than 150 mg/dLBorderline High Triglyceride 150-199 mg/dLHigh Triglyceride: 200-499 mg/dLVery High Triglyceride: greater than or equal to 5OO mg/dL Cholesterol 140 <200 mg/dL [facility] Comment:Desirable Cholestero l: less than 200 mg/dLBorderline High Cholesterol: 200-239 mg/dLHigh Cholesterol: greater than 239 mg/dL LDL Cholesterol Calculated 75 <100 mg/dL [facility] Comment:Desirable LDL: less than 100 mg/dLNear Optimal/Above Optimal LDL: 110- 129 mg/dLBorderline High LDL: 130-159 mg/dLHigh LDL: 160-189 mg/dLVery High LDL: greater than or equal to 190 mg/dL HDL Cholesterol 47 >40 mg/dL [facility] Comment:Desirable HDL: great er than 40 mg/dL Note: This HDL assay may give artificially low results in patients with liver disease. Blood 07/16/2024 9:43 AM EST 07/16/2024 2:17 PM EST us Taylor Iglesias MD LAB BLOOD ORDERABLES Final Resul t Performing Organization Address [facility] Co de Phone Number [facility] [address] [place] [phone] * Hepatitis C Viral RNA, Quantitative, Real-Time PCR (07/16/2024 9:43 AM EST) Hepatitis C Viral Load <15 NOT DETECTED NOT DETECTED IU/mL [facility] HCV Log PCR <1.18 NOT DETECTED NOT DETECTED Log IU/mL [facility] Comment:For additional infor lizy, please refer tohttp://education.[employer]/faq/MGC64n0(This link is being provided for informational/educational purposes only.)THIS TEST WAS PERFORMED AT:[facility] [place] [id number] MANRIQUE MD 07/16/2024 9:43 AM EST 07/17/2024 8:41 AM EST us Taylor Iglesias MD LAB BLOOD ORDERABLES Final Resul t [facility] [address] [place] [phone] * (ABNORMAL) CBC auto differential (07/16/2024 9:43 AM EST) White Blood Count 6.6 4.8 - 10.8 X10*3/uL [facility] Red Blood Count 4.64 4.60 - 5.80 X10*6/uL [facility] Hemoglobin 14.6 14.0 - 18.0 g/dl [facility] Hematocrit 42.5 42.0 - 52.0 % [facility] Mean Corpuscular Volume 91.6 80.0 - 98.0 fL [facility] Mean Corpuscular Hemoglobin 31.5 27.0 - 33.0 pg [facility] Mean Corpuscular HGB Conc 34.4 31.0 - 36.0 g/dl [facility] Red Cell Distribution Width 13.7 11.0 - 16.0 % [facility] Platelet Count 234 160 - 400 X10*3/uL [facility] Mean Platelet Volume 11.2 9.4 - 12.4 fL [facility] Neutrophils Percent Auto 67.3 45 - 73 % [facility] Imm Gran Pct Auto 0.5(H) 0.0 - 0.4 % [facility] Lymphocytes Percent Auto 20.6 20 - 40 % [facility] Monocytes Percent Auto 9.1 2 - 11 % [facility] Eosinophils Percent Auto 2.0 0 - 4 % [facility] Basophils Percent Auto 0.5 0 - 2 % [facility] NRBC Pct Auto 0.0 0.0 - 0.2 /100WBC [facility] Neutrophils Absolute Auto 4.5 2.0 - 8.3 x10*3/uL [facility] Imm Gran Abs Auto 0.03 0.00 - 0.03 X10*3/uL [facility] Lymphocytes Absolute Auto 1.4 1.2 - 4.9 X10*3/uL [facility] Monocytes Absolute Auto 0.6 0.1 - 1.2 X10*3/uL [facility] Eosinophils Absolute Auto 0.1 0.0 - 0.4 X10*3/uL [facility] Basophils Absolute Auto 0.0 0.0 - 0.2 X10*3/uL [facility] NRBC Abs Auto 0.000 0.0 - 0.012 X10*3/uL [facility] Blood Venous blood specimen / Unknown 07/16/2024 9:43 AM EST 07/16/2024 2:17 PM EST Taylor Iglesias MD LAB BLOOD ORDERABLES Final Resul t Performing Organization Address City/[facility] Co de Phone Number [facility] [address] [place] [phone] * (ABNORMAL) Hepatitis C Antibody with Reflex to HCV, RNA, Quantitative, Real- Time PCR (07/16/2024 9:43 AM EST) Hepatitis C Antibody Reactive( A) Nonreactive [facility] Comment:Presumptive evidence of antibodies to HCV. Blood Venous blood specimen / Unknown 07/16/2024 9:43 AM EST 07/16/2024 2:17 PM EST Taylor Iglesias MD LAB BLOOD ORDERABLES Final Resul t [facility] [address] [place] [phone] [phone] * Hepatitis A Antibody, Total (07/16/2024 9:43 AM EST) Hepatitis A Antibody IgG REACTIVE Nonreactive [facility] Comment:The presence of IgG anti-HAV implies past HAV infection(recent or distant) or vaccination against HAV. Blood Venous blood specimen / Unknown 07/16/2024 9:43 AM EST 07/16/2024 2:17 PM EST us Taylor Iglesias MD LAB BLOOD ORDERABLES Final Resul t Performing Organization Address [facility] Co de Phone Number [facility] [address] [place] [phone] * Hepatitis B surface antigen, EIA (07/16/2024 9:43 AM EST) Hepatitis B Surface Ag Negative Negative [facility] Blood Venous blood specimen / Unknown 07/16/2024 9:43 AM EST 07/16/2024 2:17 PM EST us Taylor Iglesias MD LAB BLOOD ORDERABLES Final Resul t Performing Organization Address [facility] Co de Phone Number [facility] [address] [place] [phone] * Hepatitis B Core Antibody, Total (07/16/2024 9:43 AM EST) Hepatitis B Core Antibody Nonreactive Nonreactive [facility] Blood Venous blood specimen / Unknown 07/16/2024 9:43 AM EST 07/16/2024 2:17 PM EST us Taylor Iglesias MD LAB BLOOD ORDERABLES Final Resul t Performing Organization Address [facility] Co de Phone Number [facility] [address] [place] [phone] * HIV-1/2 Antigen and Antibodies, Fourth Generation, with Reflexes (07/16/2024 9:43 AM EST) Pathologist [facility] HIV AB/AG Nonreactive Nonreactive [facility] Comment:HIV-1 p24 Ag and/or HIV-1/HIV-2 Ab not detected.A test result that is nonreactive does not exclude thepossibility of exposure to or infection with HIV-1 and/orHIV-2. Nonreactive results in this assay for individualswith prior exposure to HIV-1 and/or HIV-2 may be due toantigen and antibody levels that are below the limit ofdetection of this assay.The [employer] HIV Ag/Ab Combo assay result andsupplemental assay results should be interpreted inconjunction with the patient's clinical presentation,history and other laboratory results. If the results areinconsistent with clinical evidence, additional testing issuggested to confirm the result. Blood Venous blood specimen / Unknown 07/16/2024 9:43 AM EST 07/16/2024 2:17 PM EST us Taylor Iglesias MD LAB BLOOD ORDERABLES Final Resul t Performing Organization Address [facility]/ZIP Co de Phone Number [facility] [address] [place] [phone] * Hepatitis B Surface Antibody, Qualitative (07/16/2024 9:43 AM EST) [facility] ~Hepatitis B Surface Antibody REACTIVE Nonreactive [facility] Comment:REACTIVE: > 11.99 mI U/mL Blood Venous blood specimen / Unknown 07/16/2024 9:43 AM EST 07/16/2024 2:17 PM EST Taylor Iglesias MD LAB BLOOD ORDERABLES Final Resul t Performing Organization Address City/[facility]/ZIP Co de Phone Number [facility] [address] [place] [phone] * Hepatic Function Panel (07/16/2024 9:43 AM EST) Pathologist [facility] Bilirubin, Total 0.3 0.0 - 1.0 mg/dL [facility] Bilirubin, Direct 0.1 0.0 - 0.5 mg/dL [facility] Aspartate Amino Transferase 32 5 - 37 U/L [facility] Alanine Aminotransferase 35 0 - 40 U/L [facility] Total Protein 7.9 6.5 - 8.0 g/dL [facility] Albumin Level 4.5 3.5 - 5.0 g/dL [facility] Alkaline Phosphatase 78 39 - 117 U/L [facility] Blood Venous blood specimen / Unknown 07/16/2024 9:43 AM EST 07/16/2024 2:17 PM EST us Taylor Iglesias MD LAB BLOOD ORDERABLES Final Resul t Performing Organization Address City/State/[facility] Co de Phone Number [facility] [address] [place] [phone] * (ABNORMAL) Basic Metabolic Panel (07/16/2024 9:43 AM EST) Pathologist [facility] Sodium 139 135 - 145 mmol/L [facility] Potassium 4.1 3.3 - 5.1 mmol/L [facility] Chloride 108 96 - 108 mmol/L [facility] Carbon Dioxide 23 22 - 29 mmol/L [facility] Anion Gap 12 12 - 20 [facility] Urea Nitrogen (BUN) 12 9 - 16 mg/dL [facility] Creatinine, Serum 0.72 0.5 - 1.4 mg/dL [facility] Estimated Glomerular Filt Rate >60 [facility] Comment:Chronic Kidney Disea se: Estimated GFR < 60 mL/min/[id number] Kidney Disease: Estimated GFR < 15 mL/min/1.73m2 Glucose 140(H) 60 - 115 mg/dL [facility] Calcium 9.0 8.4 - 10.2 mg/dL [facility] Blood Venous blood specimen / Unknown 07/16/2024 9:43 AM EST 07/16/2024 2:17 PM EST Taylor Iglesias MD LAB BLOOD ORDERABLES Final Resul t [facility] [address] [place] [phone] from Last [address] [place] [address] [place] [address] C3 Care Teams Box Annealer Relationship Specialty Start Date End Date Taylor Iglesias MD [address] [place] [phone] PCP - General Family Medicine 12/29/22
--- OUTSIDE RECORDS SUMMARY | 2024-09-11 09:27 | XMS_ITS | Encounter Summary ---
Author Organization [employer] Address [address] [facility] [address] [place] [address] Care Team Providers Care Sports Nutritionist Name Role Phone Taylor Iglesias MD Primary Care Provider [phone] Reason for Visit * Reason Comments Med Refill Encounter Details Date Type Department Care Team ([facility] Contact Info) Description 04/14/2023 Refill [facility] [address] [place] [place], [place] [phone] Taylor Iglesias MD [address] [place], [place] [phone] Social History Tobacco Use Types Packs/Day Years [...] Description 11/05/2024 9:00 AM EDT Clinical Support [facility] [address] [place] [address] Kate Joshi, ERIKA documented as of this encounter Visit Diagnoses Not on filedocumented in this encounter Additional Health Concerns Assessment Noted Time PHQ-9 Depression Total Score: 4 01/05/20 9:06 AM EDT documented as of this encounter Care Teams Sports Nutritionist Relationship Specialty Start Date End Date Taylor Iglesias MD [address] [place] [phone] PCP - General Family Medicine 12/29/22 documented as of this encounter
== END 2024-09-11 09:34 | disposition home or self-care (01) ==
LOC: HO.HOS 08:56
PROVIDERS: PCP Family Medicine
DX: G56.01 Carpal tunnel syndrome, right upper limb (principal)
CPT/HCPCS: 99204

== ENCOUNTER → 2024-09-11 08:55 | Outpatient (BNVA) | payer MEDICAID, SELFPAY | PROVIDERS: PCP Family Medicine | DX: Z01.818 Encounter for other preprocedural examination (principal); G56.01 Carpal tunnel syndrome, right upper limb | CPT/HCPCS: 99212 ==

== ENCOUNTER 2024-09-13 09:24 | Day surgery (SDC) | payer MEDICAID, SELFPAY ==
--- OUTSIDE RECORDS SUMMARY | 2024-09-11 11:32 | XMS_ITS | Clinical Summary ---
Author Organization [employer] Address [address] [place] [address] Care Team Providers Care Export Sales Manager Name Role Phone Taylor Iglesias MD Primary Care Provider [phone] Allergies No known active allergies Medications * [...] support PLAN: 1. Follow up with [facility]: Recommended for follow-up: during OBAT appts 2. [...] with Dr. Dennis and CRS team in [place] Assessment & Plan (08/26/2023 11:27 AM EDT): - continue OBAT with Dr. Dennis and CRS team in [place] Assessment & Plan (03/03/2023 5:05 AM EDT): - continue OBAT with Dr. Dennis and CRS team in [place] Assessment & Plan (01/04/2023 9:32 AM EDT): [...] support PLAN: 1. Follow up with [facility]: Recommended for follow-up: during OBAT appts 2. [...] Description 09/10/2024 9:00 AM EDT Office Visit [facility] [address] [place] [address] Javy Dennis MD Opioid type dependence, continuous (CMS/HCC) (Primary Dx) 09/10/2024 Travel 09/04/2024 Refill [facility] [address] [place] [address] Kate Joshi, RN Opioid abuse (CMS/HCC) 08/08/2024 Population Health Risk Score [facility] () Department [address] [place] [phone] Provider, Population Health Generic 07/27/2024 11:15 AM EDT Telemedicine [facility] [address] [place] [address] Jamie Charlton MD Right carpal tunnel syndrome (Primary Dx); Cubital tunnel syndrome on left 07/16/2024 9:00 AM EST Office Visit [facility] [address] [place] [address] Javy Dennis MD Opioid type dependence, continuous (CMS/HCC) (Primary Dx) 07/16/2024 Travel 07/11/2024 Refill [facility] [address] [place] [address] Kate Joshi, ERIKA Opioid abuse ([facility]) 07/09/2024 1:15 PM EST Office Visit [address] [address] Jamie Charlton MD Right hand paresthesia; Left hand pain 07/09/2024 Travel 07/09/[address] [address] Taylor Iglesias MD Nurse Triage 06/28/[address] [address] Renay Renteria MA chart prep 06/18/2024 Patient Outreach [address] [phone] Dejan Fuentes Recovery Supports from Last 3 [...] Description 11/05/2024 9:00 AM EDT Clinical Support [facility] [address] [place] [address] Kate Joshi, RN Health Maintenance Due Date [...] resultswithin the time period is included. Pathologist [facility] THC Positive Cocaine Screen, Urine Negative Opiate [...] RNA, TMA, Urogenitial (07/16/2024 9:50 AM EST) [facility] CT PCR NOT DETECTED Not Detect. [facility] Comment:A not detected test result [...] psychologicalconsequences. NG PCR NOT DETECTED Not Detect. [facility] Comment:A not detected test result [...] AM EST 07/16/2024 2:19 PM EST Narrative [facility] - 07/16/2024 4:07 PM EST Urine Taylor Iglesias MD LAB MICROBIOLOGY - GENERAL ORDER NANCIE Final Result Performing Organization Address [facility] Co de Phone Number [facility] [address] [place] [phone] * Syphilis Screen (07/16/2024 9:43 AM EST) Pathologist [facility] Syphilis Screen Nonreactive Nonreactive [facility] Blood 07/16/2024 9:43 AM EST 07/16/2024 2:17 PM EST Taylor Iglesias MD LAB BLOOD ORDERABLES Final Resul t Performing Organization Address [facility] Co de Phone Number [facility] [address] [place] [phone] * T-SPOT??.TB (07/16/2024 9:43 AM EST) T Spot TB Negative Negative [facility] Comment:A negative test resu lt [...] as aquantitative test. TS PANEL A 0 [facility] TS PANEL B 0 [facility] Negative Control Passed [facility] Positive Control Passed [facility] Comment:For additional infor mation, please refer tohttp://education.SwingShot/faq/OQB760(This link is being provided for informational/educational purposes only.)THIS TEST WAS PERFORMED AT:[employer]/[facility] [place] [address]COPYLTZKAE WEINSTEIN MD,PHD 07/16/2024 9:43 AM EST 07/16/2024 2:17 PM EST us Taylor Iglesias MD LAB BLOOD ORDERABLES Final Resul t [facility] [address] [place] [address] [phone] * TSH with Reflex to Free T4 (07/16/2024 9:43 AM EST) Pathologist [facility] TSH reflex Free T4 1.18 0.32 - 4.0 uIU/mL [facility] Blood 07/16/2024 9:43 AM EST 07/16/2024 2:17 PM EST us Taylor Iglesias MD LAB BLOOD ORDERABLES Final Resul t Performing Organization Address [facility] Co de Phone Number [facility] [address] [place] [phone] * Lipid Panel with Reflex to Direct LDL (07/16/2024 9:43 AM EST) Triglycerides 91 <150 mg/dL [facility] Comment:Desirable Triglyceri de: less than 150 mg/dLBorderline High Triglyceride 150-199 mg/dLHigh Triglyceride: 200-499 mg/dLVery High Triglyceride: greater than or equal to 5OO mg/dL Cholesterol 140 <200 mg/dL [facility] Comment:Desirable Cholestero l: less than 200 mg/dLBorderline High Cholesterol: 200-239 mg/dLHigh Cholesterol: greater than 239 mg/dL LDL Cholesterol Calculated 75 <100 mg/dL [facility] Comment:Desirable LDL: less than 100 mg/dLNear Optimal/Above Optimal LDL: 110- 129 mg/dLBorderline High LDL: 130-159 mg/dLHigh LDL: 160-189 mg/dLVery High LDL: greater than or equal to 190 mg/dL HDL Cholesterol 47 >40 mg/dL [facility] Comment:Desirable HDL: great er than 40 mg/dL Note: This HDL assay may give artificially low results in patients with liver disease. Blood 07/16/2024 9:43 AM EST 07/16/2024 2:17 PM EST us Taylor Iglesias MD LAB BLOOD ORDERABLES Final Resul t Performing Organization Address [facility] Co de Phone Number [facility] [address] [place] [phone] * Hepatitis C Viral RNA, Quantitative, Real-Time PCR (07/16/2024 9:43 AM EST) Hepatitis C Viral Load <15 NOT DETECTED NOT DETECTED IU/mL [facility] HCV Log PCR <1.18 NOT DETECTED NOT DETECTED Log IU/mL [facility] Comment:For additional infor lizy, please refer tohttp://education.SwingShot/faq/IWE75v6(This link is being provided for informational/educational purposes only.)THIS TEST WAS PERFORMED AT:[employer] [place] [id number] MANRIQUE MD 07/16/2024 9:43 AM EST 07/17/2024 8:41 AM EST us Taylor Iglesias MD LAB BLOOD ORDERABLES Final Resul t [facility] [address] [place] [phone] * (ABNORMAL) CBC auto differential (07/16/2024 9:43 AM EST) White Blood Count 6.6 4.8 - 10.8 X10*3/uL [facility] Red Blood Count 4.64 4.60 - 5.80 X10*6/uL [facility] Hemoglobin 14.6 14.0 - 18.0 g/dl [facility] Hematocrit 42.5 42.0 - 52.0 % [facility] Mean Corpuscular Volume 91.6 80.0 - 98.0 fL [facility] Mean Corpuscular Hemoglobin 31.5 27.0 - 33.0 pg [facility] Mean Corpuscular HGB Conc 34.4 31.0 - 36.0 g/dl [facility] Red Cell Distribution Width 13.7 11.0 - 16.0 % [facility] Platelet Count 234 160 - 400 X10*3/uL [facility] Mean Platelet Volume 11.2 9.4 - 12.4 fL [facility] Neutrophils Percent Auto 67.3 45 - 73 % [facility] Imm Gran Pct Auto 0.5(H) 0.0 - 0.4 % [facility] Lymphocytes Percent Auto 20.6 20 - 40 % [facility] Monocytes Percent Auto 9.1 2 - 11 % [facility] Eosinophils Percent Auto 2.0 0 - 4 % [facility] Basophils Percent Auto 0.5 0 - 2 % [facility] NRBC Pct Auto 0.0 0.0 - 0.2 /100WBC [facility] Neutrophils Absolute Auto 4.5 2.0 - 8.3 x10*3/uL [facility] Imm Gran Abs Auto 0.03 0.00 - 0.03 X10*3/uL [facility] Lymphocytes Absolute Auto 1.4 1.2 - 4.9 X10*3/uL [facility] Monocytes Absolute Auto 0.6 0.1 - 1.2 X10*3/uL [facility] Eosinophils Absolute Auto 0.1 0.0 - 0.4 X10*3/uL [facility] Basophils Absolute Auto 0.0 0.0 - 0.2 X10*3/uL [facility] NRBC Abs Auto 0.000 0.0 - 0.012 X10*3/uL [facility] Blood Venous blood specimen / Unknown 07/16/2024 9:43 AM EST 07/16/2024 2:17 PM EST Taylor Iglesias MD LAB BLOOD ORDERABLES Final Resul t Performing Organization Address City/[facility] Co de Phone Number [facility] [address] [place] [phone] * (ABNORMAL) Hepatitis C Antibody with Reflex to HCV, RNA, Quantitative, Real- Time PCR (07/16/2024 9:43 AM EST) Hepatitis C Antibody Reactive( A) Nonreactive [facility] Comment:Presumptive evidence of antibodies to HCV. Blood Venous blood specimen / Unknown 07/16/2024 9:43 AM EST 07/16/2024 2:17 PM EST Taylor Iglesias MD LAB BLOOD ORDERABLES Final Resul t [facility] [address] [place] [phone] * Hepatitis A Antibody, Total (07/16/2024 9:43 AM EST) Hepatitis A Antibody IgG REACTIVE Nonreactive [facility] Comment:The presence of IgG anti-HAV implies past HAV infection(recent or distant) or vaccination against HAV. Blood Venous blood specimen / Unknown 07/16/2024 9:43 AM EST 07/16/2024 2:17 PM EST us Taylor Iglesias MD LAB BLOOD ORDERABLES Final Resul t Performing Organization Address [facility] Co de Phone Number [facility] [address] [place] [phone] * Hepatitis B surface antigen, EIA (07/16/2024 9:43 AM EST) Hepatitis B Surface Ag Negative Negative [facility] Blood Venous blood specimen / Unknown 07/16/2024 9:43 AM EST 07/16/2024 2:17 PM EST us Tyalor Iglesias MD LAB BLOOD ORDERABLES Final Resul t Performing Organization Address [facility] Co de Phone Number [facility] [address] [place] [phone] * Hepatitis B Core Antibody, Total (07/16/2024 9:43 AM EST) Hepatitis B Core Antibody Nonreactive Nonreactive [facility] Blood Venous blood specimen / Unknown 07/16/2024 9:43 AM EST 07/16/2024 2:17 PM EST us Taylor Iglesias MD LAB BLOOD ORDERABLES Final Resul t Performing Organization Address [facility] Co de Phone Number [facility] [address] [place] [phone] * HIV-1/2 Antigen and Antibodies, Fourth Generation, with Reflexes (07/16/2024 9:43 AM EST) Pathologist [facility] HIV AB/AG Nonreactive Nonreactive [facility] Comment:HIV-1 p24 Ag and/or HIV-1/HIV-2 Ab not detected.A test result that is nonreactive does not exclude thepossibility of exposure to or infection with HIV-1 and/orHIV-2. Nonreactive results in this assay for individualswith prior exposure to HIV-1 and/or HIV-2 may be due toantigen and antibody levels that are below the limit ofdetection of this assay.[employer] HIV Ag/Ab Combo assay result andsupplemental assay results should be interpreted inconjunction with the patient's clinical presentation,history and other laboratory results. If the results areinconsistent with clinical evidence, additional testing issuggested to confirm the result. Blood Venous blood specimen / Unknown 07/16/2024 9:43 AM EST 07/16/2024 2:17 PM EST us Taylro Iglesias MD LAB BLOOD ORDERABLES Final Resul t Performing Organization Address [facility]/ZIP Co de Phone Number [facility] [address] [place] [phone] * Hepatitis B Surface Antibody, Qualitative (07/16/2024 9:43 AM EST) [facility] ~Hepatitis B Surface Antibody REACTIVE Nonreactive [facility] Comment:REACTIVE: > 11.99 mI U/mL Blood Venous blood specimen / Unknown 07/16/2024 9:43 AM EST 07/16/2024 2:17 PM EST Taylor Iglesias MD LAB BLOOD ORDERABLES Final Resul t Performing Organization Address City/[facility]/ZIP Co de Phone Number [facility] [address] [place] [phone] * Hepatic Function Panel (07/16/2024 9:43 AM EST) Pathologist [facility] Bilirubin, Total 0.3 0.0 - 1.0 mg/dL [facility] Bilirubin, Direct 0.1 0.0 - 0.5 mg/dL [facility] Aspartate Amino Transferase 32 5 - 37 U/L [facility] Alanine Aminotransferase 35 0 - 40 U/L [facility] Total Protein 7.9 6.5 - 8.0 g/dL [facility] Albumin Level 4.5 3.5 - 5.0 g/dL [facility] Alkaline Phosphatase 78 39 - 117 U/L [facility] Blood Venous blood specimen / Unknown 07/16/2024 9:43 AM EST 07/16/2024 2:17 PM EST us Taylor Iglesias MD LAB BLOOD ORDERABLES Final Resul t Performing Organization Address City/State/[facility] Co de Phone Number [facility] [address] [place] [phone] * (ABNORMAL) Basic Metabolic Panel (07/16/2024 9:43 AM EST) Pathologist [facility] Sodium 139 135 - 145 mmol/L [facility] Potassium 4.1 3.3 - 5.1 mmol/L [facility] Chloride 108 96 - 108 mmol/L [facility] Carbon Dioxide 23 22 - 29 mmol/L [facility] Anion Gap 12 12 - 20 [facility] Urea Nitrogen (BUN) 12 9 - 16 mg/dL [facility] Creatinine, Serum 0.72 0.5 - 1.4 mg/dL [facility] Estimated Glomerular Filt Rate >60 [facility] Comment:Chronic Kidney Disea se: Estimated GFR < 60 mL/min/[id number] Kidney Disease: Estimated GFR < 15 mL/min/1.73m2 Glucose 140(H) 60 - 115 mg/dL [facility] Calcium 9.0 8.4 - 10.2 mg/dL [facility] Blood Venous blood specimen / Unknown 07/16/2024 9:43 AM EST 07/16/2024 2:17 PM EST Taylor Iglesias MD LAB BLOOD ORDERABLES Final Resul t [facility] [address] [place] [phone] from Last [address] [place] [address] C3 Care Teams Export Sales Manager Relationship Specialty Start Date End Date Taylor Iglesias MD [address] [place] [phone] PCP - General Family Medicine 12/29/22
--- OUTSIDE RECORDS SUMMARY | 2024-09-11 11:32 | XMS_ITS | Encounter Summary ---
Author Organization [employer] Address [address] [facility] 7t [place] [address] Care Team Providers Care Cutting And Creasing Press Operator Name Role Phone Taylor Iglesias MD Primary Care Provider [phone] Reason for Visit * Reason Comments Med Refill Encounter Details Date Type Department Care Team ([facility] Contact Info) Description 04/14/2023 Refill [facility] [address] [place], [place] [phone] Taylor Iglesias MD [address] [place], [place] [phone] Social History Tobacco Use Types Packs/Day Years [...] Description 11/05/2024 9:00 AM EDT Clinical Support [facility] [address] [place] [address] Kate Joshi, ERIKA documented as of this encounter Visit Diagnoses Not on filedocumented in this encounter Additional Health Concerns Assessment Noted Time PHQ-9 Depression Total Score: 4 01/05/20 9:06 AM EDT documented as of this encounter Care Teams Cutting And Creasing Press Operator Relationship Specialty Start Date End Date Taylor Iglesias MD [address] [place] [phone] PCP - General Family Medicine 12/29/22 documented as of this encounter
--- OUTSIDE RECORDS SUMMARY | 2024-09-11 11:32 | XMS_ITS | Encounter Summary ---
Author Organization [employer] Address [address] [facility] [address] [place] [address] Care Team Providers Care Airport Electrician Name Role Phone Taylor Iglesias MD Primary Care Provider [phone] Reason for Visit * Reason Comments OBAT F/U Encounter Details Date Type Department Care Team ([facility] st Contact Info) Description 09/10/2024 9:00 AM EDT Office Visit [facility] [address] [place] [address] Javy Dennis MD [address] [place] [phone] Opioid type dependence, continuous (CMS/HCC) (Primary Dx) [...] in 08/2021 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) Interested in pursuing training to become a Executive Receptionist Started a GED program; will also pursue [employer] Community Shredder Tender Peat information given to assist with his outstanding [...] in 08/2021 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) Interested in pursuing training to become a Executive Receptionist Started a GED program; will also pursue [employer] Community Shredder Tender Peat information given to assist with his outstanding [...] for this visit: Opioid type dependence, continuous ([facility]) (Primary) - POCT MIN-14 Urine Drug Screen [...] Description 11/05/2024 9:00 AM EDT Clinical Support [facility] [address] [place] [address] Kate Joshi, RN documented as of this [...] documented as of this encounter Care Teams Airport Electrician Relationship Specialty Start Date End Date Taylor Iglesias MD [address] [place] [phone] PCP - General Family Medicine 12/29/22 documented as of this encounter
--- OUTSIDE RECORDS SUMMARY | 2024-09-11 11:32 | XMS_ITS | Encounter Summary ---
Author Organization [employer] Address [address] [place] [address] Care Team Providers Care Senior Technical Specialist Name Role Phone Taylor Iglesias MD Primary Care Provider [phone] Encounter Details Date Type Department Care Team [...] Description 11/05/2024 9:00 AM EDT Clinical Support [facility] [address] [place] [address] Kate Joshi RN documented as of this encounter Visit Diagnoses Not on filedocumented in this encounter Additional Health Concerns Assessment Noted Time PHQ-9 Depression Total Score: 13 025 9:35 AM EST documented as of this encounter Care Teams Senior Technical Specialist Relationship Specialty Start Date End Date Taylor Iglesias MD [address] [place] [phone] PCP - General Family Medicine 12/29/22 documented as of this encounter
--- OUTSIDE RECORDS SUMMARY | 2024-09-11 11:32 | XMS_ITS | Encounter Summary ---
Author Organization [employer] Address [address] [address] [place] [address] Care Team Providers Care Packing Room Inspector Name Role Phone Taylor Iglesias MD Primary Care Provider [phone] Encounter Details Date Type Department Care Team ([facility] st Contact Info) Description 08/15/2023 Orders Only [facility] [address] [place] [address] [phone] Taylor Iglesias MD [address] [place], [place] [phone] Social History Tobacco Use Types Packs/Day Years [...] with others, in a hotel, in a group home, living outside on the street, on [...] Description 11/05/2024 9:00 AM EDT Clinical Support [facility] [address] [place] [address] Kate Joshi RN documented as of this encounter Procedures Procedure Name Priority Date/Time Associated Diagnosis Comments HEPATITIS C VIRAL RNA, QUANTITATIVE, REAL-TIME PCR Routine 07/16/2024 9:43 AM EST documented in this encounter Results * Hepatitis C Viral RNA, Quantitative, Real-Time PCR (07/16/2024 9:43 AM EST) Hepatitis C Viral Load <15 NOT DETECTED NOT DETECTED IU/mL [facility] HCV Log PCR <1.18 NOT DETECTED NOT DETECTED Log IU/mL [facility] Comment:For additional infor lizy, please refer tohttp://education.Fio/faq/UQE24p7(This link is being provided for informational/educational purposes only.)THIS TEST WAS PERFORMED AT:[facility] [place] [id number] MANRIQUE MD 07/16/2024 9:43 AM EST 07/17/2024 8:41 AM EST us Taylor Iglesias MD LAB BLOOD ORDERABLES Final Resul t [facility] [address] [place] [phone] documented in this encounter Visit Diagnoses Not on filedocumented in this encounter Additional Health Concerns Assessment Noted Time PHQ-9 Depression Total Score: 0 08/09/19 24 3:54 PM EDT documented as of this encounter Care Teams Packing Room Inspector Relationship Specialty Start Date End Date Taylor Iglesias MD [address] [place] [address] PCP - General Family Medicine 12/29/22 documented as of this encounter
[2024-09-13 09:46] VITALS: BP 136/64; PULSE 83; RESP 14; TEMP 37.3; O2SAT 96; BMI 29.6
--- NOTE | 2024-09-13 10:17 | MHC.SHP ---
Pre-Procedural Eval Section A - 24 Hr Update-Section A only Date of Service: 09/13/24 The patient is an INPATIENT: No Changes since office visit: No Cold of Flu in the past 2 weeks, No New Medical Problems, No Changes in Medication and No Patient answered all questions The patient has been examined within 24 hours of the surgical procedure. The History & Physical has been completed within 30 days and I have reviewed it.: Yes Section B - Complete if H&P > 30 days Chief Complaint: Carpal tunnel syndrome, right upper limb Allergies: Allergies Allergy/AdvReac Type Severity Reaction Status Date / Time No Known Allergies Allergy Verified 09/13/24 09:44 Plan Diagnosis/Plan: Unchanged I have reviewed the history and physical and performed a pertinent physical examination on my patient. No changes have occurred unless specified. Time Spent With Patient Time: Total time managing care of this patient today ____ minutes.
--- NOTE | 2024-09-13 10:18 | P.OP_ITS ---
Operative Note Operative Note Date of Service: 09/13/24 Narrative: Preop diagnosis: 1. Right Carpal tunnel syndrome Postop diagnosis: same Procedure: 1. Right Carpal tunnel release Surgeon: Bailey Zhang MD Spinning Room Worker: Cecil FONTAINE Anesthesia: local block using 1% lidocaine with epinephrine Findings: Thickened transverse carpal ligament. EBL: Less than 5 mL Specimens: None Complications: None Disposition: Brought to recovery room in stable condition Plan: Follow-up for 10-14 days for wound check and suture removal Indications: The patient is 34 years old, with right carpal tunnel syndrome that has been unresponsive to nonoperative management. The risks and benefits of operative treatment including but not limited to risk of damage to blood vessels, nerves, tendons, infection, persistent pain, persistent symptoms, or possible need for additional surgery were discussed with the patient and the patient wishes to proceed with surgery. Procedure: Once consent was obtained a local block was performed using a combination of 1% lidocaine with epinephrine. The patient was then brought back to the operating suite and placed on the operative table in supine position. The right upper extremity was prepped and draped in a standard surgical fashion. Once assured that we had a good block, a 2.0 cm longitudinal incision was made centered over the carpal tunnel. The incision was made through the skin to the subcutaneous tissues using a #15 blade. Dissection was made down to the level of the transverse carpal ligament with care being taken to protect the palmar cutaneous nerve. Once the transverse carpal ligament was clearly visualized, a longitudinal incision was made in the transverse carpal ligament 1st using a #15 blade, then using tenotomy scissors under direct visualization. Care was taken to look for and protect the motor branch of the median nerve when seen in this area. Once satisfied with our carpal tunnel release the wound was copiously irrigated with normal saline and hemostasis was obtained with a brief period of local pressure. The skin edges were reapproximated with some 5.0 nylon suture material and a sterile dressing was applied. The patient appears to have tolerated the procedure well and with no complications. All digits were well vascularized at the conclusion of the case.
[2024-09-13 12:09] VITALS: BP 132/71; PULSE 58; RESP 14; O2SAT 97
== END 2024-09-13 12:20 | disposition home or self-care (01) ==
PROVIDERS: PCP Family Medicine; Visit Provider Orthopaedic Surgery
PROC: (CPT 64721; principal; 2024-09-13 11:20)
DX: G56.01 Carpal tunnel syndrome, right upper limb (principal); R20.0 Anesthesia of skin; R20.2 Paresthesia of skin; F11.20 Opioid dependence, uncomplicated
CPT/HCPCS: 64721; J0171; J2003

== ENCOUNTER → 2024-09-13 09:24 | Outpatient (BNV) | payer MEDICAID, SELFPAY | PROVIDERS: PCP Family Medicine; Visit Provider Orthopaedic Surgery | DX: G56.01 Carpal tunnel syndrome, right upper limb (principal) | CPT/HCPCS: 64721 ==

== ENCOUNTER 2024-09-26 14:15 | Outpatient (AMB) | payer MEDICAID, SELFPAY ==
--- NOTE | 2024-09-26 14:18 | A.OFFVIS_ITS ---
Vital Signs 09/26/24 14:29 Height 6 ft Weight 218 lb BMI 29.6 Intake Visit Reasons: PO RT CTR 09/13/24 AR Intake Note: Porter is a 34 year old left hand dominant male who presents today post- operatively status post right carpal tunnel release, DOS: 09/13/[address] Zhang. Patient reports he is doing well. Denies numbness, tingling, finger locking. Patient states he takes Ibuprofen PRN as well as Suboxone. Sutures removed in office and steri strips applied. Allergies No Known Allergies Allergy (Verified 09/26/24 14:29) HPI HPI PO RT CTR 09/13/24 AR: Details: Porter is a 34 year old left hand dominant male who presents today post-operativ eduardo status post right carpal tunnel release, DOS: 09/13/[address] Zhang. Patient reports he is doing well. Denies numbness, tingling, finger locking. Patient states he takes Ibuprofen PRN as well as Suboxone. Sutures removed in office and steri strips applied. Of note, the patient does state that the lateral epicondyle of his left elbow, and he would like to get this resolved prior to any surgical intervention of the left side. [facility] Medical History (Updated 09/26/24 @ 14:35 by ZHEN Miller) Drug abuse Review of Systems Const All systems reviewed & are unremarkable except as noted in HPI and below Physical Exam Vital Signs: BMI result Body Mass Index 29.6 Extrem Other: Neuro: Normal sensation of the tips of all digits of bilateral hands in the office today No thenar or intrinsic wasting. Good APB muscle firing and good finger cross. Vascular: Capillary refill brisk. ROM: Patient can make a fist and extend all their digits. Skin: Well approximated and well healing incision site noted on the volar right wrist No lacerations or abrasions noted. General: No ecchymosis. No erythema or evidence of infection. Assessment & Plan Assessment & Plan (1) Left lateral epicondylitis: Code(s): M77.12 - Lateral epicondylitis, left elbow Category: Medical (2) Right carpal tunnel syndrome: Code(s): G56.01 - Carpal tunnel syndrome, right upper limb Category: Medical Plan 1. Right carpal tunnel syndrome status post carpal tunnel release DOS 09/13/2024 With complete symptom relief postoperatively Patient appears to be recovering very well postoperatively Patient is educated about the typical recovery course No further follow-up indicated, as patient is recovering very well Patient is amenable to this plan 2. Left lateral epicondylitis Patient is once again referred to occupational therapy for treatment of lateral epicondylitis Patient is amenable to this plan Orders: Orders OT Evaluation and Treatment Today M77.12 - Lateral epicondylitis, left elbow Coding Level of Care Code Global (95885) Diagnoses Left lateral epicondylitis M77.12 Right carpal tunnel syndrome G56.01
--- OUTSIDE RECORDS SUMMARY | 2024-09-26 14:18 | XMS_ITS | Clinical Summary ---
Author Organization [employer] Address [address] [facility] [address] [place] [address] Care Team Providers Care Astronomy Teacher Name Role Phone Taylor Iglesias MD Primary Care Provider [phone] Allergies No known active allergies Medications * [...] 6:44 PM EST): [facility] for ADHD Assessment & Plan (02/14/2023 4:11 AM EDT): - [facility] trying medication for ADHD Assessment [...] seek support PLAN: 1. Follow up with [facility]: Recommended for follow-up: during OBAT appts 2. Patient goal is to improve mental health and functioning 3. Behavioral Recommendations a. Connecting with -MR b. [facility] follow up c. Use of [...] with Dr. Dennis and CRS team in [place] Assessment & Plan (08/26/2023 11:27 AM EDT): - continue OBAT with Dr. Dennis and CRS team in [place] Assessment & Plan (03/03/2023 5:05 AM EDT): - continue OBAT with Dr. Dennis and CRS team in [place] Assessment & Plan (01/04/2023 9:32 AM EDT): [...] benefit from keeping connecting with -MR and [facility] follow up for support. At this time Porter Hinton meets criteria for Visit Diagnoses: Problem List Items Addressed This Visit Other Opioid abuse, in remission (CMS/HCC) EVGENY (generalized anxiety disorder) Patient ready to address current needs Yes Strengths include willing to seek support PLAN: 1. Follow up with [facility]: Recommended for follow-up: during OBAT appts 2. Patient goal is to improve mental health and functioning 3. Behavioral Recommendations a. Connecting with [facility] b. [facility] follow up c. Use of coping skills provided Chronic low back pain 04/24/2021 Assessment & Plan (02/08/2023 11:07 AM EDT): -Continue chiropractic treatment -Rx Muscle relaxant Encounters Date Type Department Care Team Description 09/10/2024 9:00 AM EDT Office Visit [facility] [address] [place] [address] Javy Dennis MD Opioid type dependence, continuous (CMS/HCC) (Primary Dx) 09/10/2024 Travel 09/04/2024 Refill [facility] [address] [place] [address] Kate Joshi RN Opioid abuse (CMS/HCC) 08/08/2024 Population Health Risk Score [facility] () Department [address] [place] [phone] Provider, Population Health Generic 07/27/2024 11:15 AM EDT Telemedicine [facility] [address] [place] [address] Jamie Charlton MD Right carpal tunnel syndrome (Primary Dx); Cubital tunnel syndrome on left 07/16/2024 9:00 AM EST Office Visit [facility] [address] [place] [address] Javy Dennis MD Opioid type dependence, continuous (CMS/HCC) (Primary Dx) 07/16/2024 Travel 07/11/2024 Refill [facility] [address] [place] [address] Kate Joshi RN Opioid abuse (CMS/HCC) 07/09/2024 1:15 PM EST Office Visit [facility] [address] [place] [address] Zoltan, MD Jamie Right hand paresthesia; Left hand pain 07/09/2024 Travel 07/09/2024 Telephone [facility] [address] [place] [address] Taylor Iglesias MD Nurse Triage from Last 3 Months Immunizations Immunization Administration Dates Next Due Hep A, Adult [...] Description 11/05/2024 9:00 AM EDT Clinical Support [facility] [address] [place] [address] Kate Joshi, RN Health Maintenance Due Date [...] patient's age to complete this topic Meningococcal B Vaccine Aged Out No l onger eligible based on patient's age to complete [...] 9:17 AM EST Opioid type dependence, continuous ([facility]) from Last 3 Months Results * POCT [...] EST) CT PCR NOT DETECTED Not Detect. [facility] Comment:A not detected test result does [...] psychologicalconsequences. NG PCR NOT DETECTED Not Detect. [facility] Comment:A not detected test result does [...] AM EST 07/16/2024 2:19 PM EST Narrative [facility] - 07/16/2024 4:07 PM EST Urine Taylor Iglesias MD LAB MICROBIOLOGY - GENERAL ORDER NANCIE Final Result Performing Organization Address [facility] de Phone Number [facility] [address] [place] [phone] * Syphilis Screen (07/16/2024 9:43 AM EST) [facility] Syphilis Screen Nonreactive Nonreactive [facility] Blood 07/16/2024 9:43 AM EST 07/16/2024 2:17 PM EST Taylor Iglesias MD LAB BLOOD ORDERABLES Final Resul t Performing Organization Address [facility] de Phone Number [facility] [address] [place] [phone] * T-SPOT??.TB (07/16/2024 9:43 AM EST) T Spot TB Negative Negative [facility] Comment:A negative test resu lt does [...] as aquantitative test. TS PANEL A 0 [facility] TS PANEL B 0 [facility] Negative Control Passed [facility] Positive Control Passed [facility] Comment:For additional infor lizy, please refer tohttp://education.Orexo/faq/VWJ853(This link is being provided for informational/educational purposes only.)THIS TEST WAS PERFORMED AT:[id number] [place] [id number] WEINSTEIN MD,PHD 07/16/2024 9:43 AM EST 07/16/2024 2:17 PM EST Taylor Iglesias MD LAB BLOOD ORDERABLES Final Resul t Performing Organization Address [facility] Co de Phone Number [facility] [address] [place] [phone] * TSH with Reflex to Free T4 (07/16/2024 9:43 AM EST) TSH reflex Free T4 1.18 0.32 - 4.0 uIU/mL [facility] Blood 07/16/2024 9:43 AM EST 07/16/2024 2:17 PM EST Taylor Iglesias MD LAB BLOOD ORDERABLES Final Resul t Performing Organization Address [facility] Co de Phone Number [facility] [address] [place] [phone] * Lipid Panel with Reflex to Direct LDL (07/16/2024 9:43 AM EST) Triglycerides 91 <150 mg/dL [facility] Comment:Desirable Triglyceri de: less than 150 mg/dLBorderline High Triglyceride 150-199 mg/dLHigh Triglyceride: 200-499 mg/dLVery High Triglyceride: greater than or equal to 5OO mg/dL Cholesterol 140 <200 mg/dL [facility] Comment:Desirable Cholestero l: less than 200 mg/dLBorderline High Cholesterol: 200-239 mg/dLHigh Cholesterol: greater than 239 mg/dL LDL Cholesterol Calculated 75 <100 mg/dL [facility] Comment:Desirable LDL: less than 100 mg/dLNear Optimal/Above Optimal LDL: 110- 129 mg/dLBorderline High LDL: 130-159 mg/dLHigh LDL: 160-189 mg/dLVery High LDL: greater than or equal to 190 mg/dL HDL Cholesterol 47 >40 mg/dL [facility] Comment:Desirable HDL: great er than 40 mg/dL Note: This HDL assay may give artificially low results in patients with liver disease. Blood 07/16/2024 9:43 AM EST 07/16/2024 2:17 PM EST us Taylor Iglesias MD LAB BLOOD ORDERABLES Final Resul t [facility] [address] [place] [phone] * Hepatitis C Viral RNA, Quantitative, Real-Time PCR (07/16/2024 9:43 AM EST) Hepatitis C Viral Load <15 NOT DETECTED NOT DETECTED IU/mL [facility] HCV Log PCR <1.18 NOT DETECTED NOT DETECTED Log IU/mL [facility] Comment:For additional infor lizy, please refer tohttp://education.Orexo/faq/GWM80f1(This link is being provided for informational/educational purposes only.)THIS TEST WAS PERFORMED AT:[facility] [id number] [place] [id number] MANRIQUE MD 07/16/2024 9:43 AM EST 07/17/2024 8:41 AM EST us Taylor Iglesias MD LAB BLOOD ORDERABLES Final Resul t [facility] [address] [place] [phone] * (ABNORMAL) CBC auto differential (07/16/2024 9:43 AM EST) White Blood Count 6.6 4.8 - 10.8 X10*3/uL [facility] Red Blood Count 4.64 4.60 - 5.80 X10*6/uL [facility] Hemoglobin 14.6 14.0 - 18.0 g/dl [facility] Hematocrit 42.5 42.0 - 52.0 % [facility] Mean Corpuscular Volume 91.6 80.0 - 98.0 fL [facility] Mean Corpuscular Hemoglobin 31.5 27.0 - 33.0 pg [facility] Mean Corpuscular HGB Conc 34.4 31.0 - 36.0 g/dl [facility] Red Cell Distribution Width 13.7 11.0 - 16.0 % [facility] Platelet Count 234 160 - 400 X10*3/uL [facility] Mean Platelet Volume 11.2 9.4 - 12.4 fL [facility] Neutrophils Percent Auto 67.3 45 - 73 % [facility] Imm Gran Pct Auto 0.5(H) 0.0 - 0.4 % [facility] Lymphocytes Percent Auto 20.6 20 - 40 % [facility] Monocytes Percent Auto 9.1 2 - 11 % [facility] Eosinophils Percent Auto 2.0 0 - 4 % [facility] Basophils Percent Auto 0.5 0 - 2 % [facility] NRBC Pct Auto 0.0 0.0 - 0.2 /100WBC [facility] Neutrophils Absolute Auto 4.5 2.0 - 8.3 x10*3/uL [facility] Imm Gran Abs Auto 0.03 0.00 - 0.03 X10*3/uL [facility] Lymphocytes Absolute Auto 1.4 1.2 - 4.9 X10*3/uL [facility] Monocytes Absolute Auto 0.6 0.1 - 1.2 X10*3/uL [facility] Eosinophils Absolute Auto 0.1 0.0 - 0.4 X10*3/uL [facility] Basophils Absolute Auto 0.0 0.0 - 0.2 X10*3/uL [facility] NRBC Abs Auto 0.000 0.0 - 0.012 X10*3/uL [facility] Blood Venous blood specimen / Unknown 07/16/2024 9:43 AM EST 07/16/2024 2:17 PM EST Taylor Iglesias MD LAB BLOOD ORDERABLES Final Resul t Performing Organization Address [facility] Co de Phone Number [facility] [address] [place] [phone] * (ABNORMAL) Hepatitis C Antibody with Reflex to HCV, RNA, Quantitative, Real- Time PCR (07/16/2024 9:43 AM EST) Hepatitis C Antibody Reactive( A) Nonreactive [facility] Comment:Presumptive evidence of antibodies to HCV. Blood Venous blood specimen / Unknown 07/16/2024 9:43 AM EST 07/16/2024 2:17 PM EST Taylor Iglesias MD LAB BLOOD ORDERABLES Final Resul t Performing Organization Address [facility] Co de Phone Number [facility] [address] [place] [phone] * Hepatitis A Antibody, Total (07/16/2024 9:43 AM EST) Hepatitis A Antibody IgG REACTIVE Nonreactive [facility] Comment:The presence of IgG anti-HAV implies past HAV infection(recent or distant) or vaccination against HAV. Blood Venous blood specimen / Unknown 07/16/2024 9:43 AM EST 07/16/2024 2:17 PM EST us Taylor Iglesias MD LAB BLOOD ORDERABLES Final Resul t Performing Organization Address City/[facility]/ZIP Co de Phone Number [facility] [address] [place] [phone] * Hepatitis B surface antigen, EIA (07/16/2024 9:43 AM EST) Hepatitis B Surface Ag Negative Negative [facility] Blood Venous blood specimen / Unknown 07/16/2024 9:43 AM EST 07/16/2024 2:17 PM EST us Taylor Iglesias MD LAB BLOOD ORDERABLES Final Resul t Performing Organization Address [facility] Co de Phone Number [facility] [address] [place] [address] [phone] * Hepatitis B Core Antibody, Total (07/16/2024 9:43 AM EST) Hepatitis B Core Antibody Nonreactive Nonreactive [facility] Blood Venous blood specimen / Unknown 07/16/2024 9:43 AM EST 07/16/2024 2:17 PM EST us Taylor Iglesias MD LAB BLOOD ORDERABLES Final Resul t Performing Organization Address [facility] Co de Phone Number [facility] [address] [place] [phone] * HIV-1/2 Antigen and Antibodies, Fourth Generation, with Reflexes (07/16/2024 9:43 AM EST) HIV AB/AG Nonreactive Nonreactive [facility] Comment:HIV-1 p24 Ag and/or HIV-1/HIV-2 Ab not detected.A test result that is nonreactive does not exclude thepossibility of exposure to or infection with HIV-1 and/orHIV-2. Nonreactive results in this assay for individualswith prior exposure to HIV-1 and/or HIV-2 may be due toantigen and antibody levels that are below the limit ofdetection of this assay.The Clarity HIV Ag/Ab Combo assay result andsupplemental assay results should be interpreted inconjunction with the patient's clinical presentation,history and other laboratory results. If the results areinconsistent with clinical evidence, additional testing issuggested to confirm the result. Blood Venous blood specimen / Unknown 07/16/2024 9:43 AM EST 07/16/2024 2:17 PM EST Taylor Iglesias MD LAB BLOOD ORDERABLES Final Resul t Performing Organization Address [facility] de Phone Number [facility] [address] [place] [address] [phone] * Hepatitis B Surface Antibody, Qualitative (07/16/2024 9:43 AM EST) Pathologist [facility] ~Hepatitis B Surface Antibody REACTIVE Nonreactive [facility] Comment:REACTIVE: > 11.99 mI U/mL Blood Venous blood specimen / Unknown 07/16/2024 9:43 AM EST 07/16/2024 2:17 PM EST Taylor Iglesias MD LAB BLOOD ORDERABLES Final Resul t Performing Organization Address [facility] Co de Phone Number [facility] [address] [place] [phone] * Hepatic Function Panel (07/16/2024 9:43 AM EST) Bilirubin, Total 0.3 0.0 - 1.0 mg/dL [facility] Bilirubin, Direct 0.1 0.0 - 0.5 mg/dL [facility] Aspartate Amino Transferase 32 5 - 37 U/L [facility] Alanine Aminotransferase 35 0 - 40 U/L [facility] Total Protein 7.9 6.5 - 8.0 g/dL [facility] Albumin Level 4.5 3.5 - 5.0 g/dL [facility] Alkaline Phosphatase 78 39 - 117 U/L [facility] Blood Venous blood specimen / Unknown 07/16/2024 9:43 AM EST 07/16/2024 2:17 PM EST us Taylor Iglesias MD LAB BLOOD ORDERABLES Final Resul t Performing Organization Address City/[facility]/ZIP Co de Phone Number [facility] [address] [place] [phone] * (ABNORMAL) Basic Metabolic Panel (07/16/2024 9:43 AM EST) Sodium 139 135 - 145 mmol/L [facility] Potassium 4.1 3.3 - 5.1 mmol/L [facility] Chloride 108 96 - 108 mmol/L [facility] Carbon Dioxide 23 22 - 29 mmol/L [facility] Anion Gap 12 12 - 20 [facility] Urea Nitrogen (BUN) 12 9 - 16 mg/dL [facility] Creatinine, Serum 0.72 0.5 - 1.4 mg/dL [facility] Estimated Glomerular Filt Rate >60 [facility] Comment:Chronic Kidney Disea se: Estimated GFR < 60 mL/min/1.57w5Dllflw Kidney Disease: Estimated GFR < 15 mL/min/1.73m2 Glucose 140(H) 60 - 115 mg/dL [facility] Calcium 9.0 8.4 - 10.2 mg/dL [facility] Blood Venous blood specimen / Unknown 07/16/2024 9:43 AM EST 07/16/2024 2:17 PM EST us Taylor Iglesias MD LAB BLOOD ORDERABLES Final Resul t Performing Organization Address City/[facility]/ZIP Co de Phone Number [facility] [address] [place] [address] [phone] from Last 3 Months Insurance C3 Care Teams Astronomy Teacher Relationship Specialty Start Date End Date Taylor Iglesias MD [address] [place] [phone] PCP - General Family Medicine 12/29/22
--- OUTSIDE RECORDS SUMMARY | 2024-09-26 14:18 | XMS_ITS | Encounter Summary ---
Author Organization [employer] Address [address] [facility] [address] [place] [address] Care Team Providers Care Dewaxer Name Role Phone Taylor Iglesias MD Primary Care Provider [phone] Encounter Details Date Type Department Care Team ([facility] st Contact Info) Description 08/15/2023 Orders Only [facility] [address] [place], [place] [phone] Taylor Iglesias MD [address] [place], [place] [phone] Social History Tobacco Use Types Packs/Day Years [...] 11/05/2024 9:00 AM EDT Clinical Support [facility] [address] [place] [address] Kate Joshi RN documented as of this encounter Procedures Procedure Name Priority Date/Time Associated Diagnosis Comments HEPATITIS C VIRAL RNA, QUANTITATIVE, REAL-TIME PCR Routine 07/16/2024 9:43 AM EST documented in this encounter Results * Hepatitis C Viral RNA, Quantitative, Real-Time PCR (07/16/2024 9:43 AM EST) Hepatitis C Viral Load <15 NOT DETECTED NOT DETECTED IU/mL [facility] HCV Log PCR <1.18 NOT DETECTED NOT DETECTED Log IU/mL [facility] Comment:For additional infor lizy, please refer tohttp://education.Conduit/faq/JMU55b9(This link is being provided for informational/educational purposes only.)THIS TEST WAS PERFORMED AT:[employer] [place] [id number] MANRIQUE MD 07/16/2024 9:43 AM EST 07/17/2024 8:41 AM EST Taylor Iglesias MD LAB BLOOD ORDERABLES Final Resul t [facility] [address] [place] [phone] documented in this encounter Visit Diagnoses Not on filedocumented in this encounter Additional Health Concerns Assessment Noted Time PHQ-9 Depression Total Score: 0 08/09/19 24 3:54 PM EDT documented as of this encounter Care Teams Dewaxer Relationship Specialty Start Date End Date Taylor Iglesias MD [address] [place] [address] PCP - General Family Medicine 12/29/22 documented as of this encounter
--- OUTSIDE RECORDS SUMMARY | 2024-09-26 14:18 | XMS_ITS | Encounter Summary ---
Author Organization [employer] Address [address] [place] [address] Care Team Providers Care Video Editing Internship Name Role Phone Taylor Iglesias MD Primary Care Provider [phone] Reason for Visit * Reason Comments Med Refill Encounter Details Date Type Department Care Team ([facility] st Contact Info) Description 04/14/2023 Refill [facility] MEDICINE [address] [place], [place] [phone] Taylor Iglesias MD [address] [place], [place] [phone] Social History Tobacco Use Types Packs/Day Years [...] Description 11/05/2024 9:00 AM EDT Clinical Support [facility] MED & PEDS [address] [place] [address] Kate Joshi, ERIKA documented as of this encounter Visit Diagnoses Not on filedocumented in this encounter Additional Health Concerns Assessment Noted Time PHQ-9 Depression Total Score: 4 01/05/20 9:06 AM EDT documented as of this encounter Care Teams Video Editing Internship Relationship Specialty Start Date End Date Taylor Iglesias MD [address] [place] [address] PCP - General Family Medicine 12/29/22 documented as of this encounter
[2024-09-26 14:29] VITALS: BMI 29.6
== END 2024-09-26 14:39 | disposition home or self-care (01) ==
LOC: HO.HOS 14:15
PROVIDERS: PCP Family Medicine
DX: M77.12 Lateral epicondylitis, left elbow (principal); G56.01 Carpal tunnel syndrome, right upper limb
CPT/HCPCS: 99024

== ENCOUNTER → 2024-09-26 14:15 | Outpatient (BNVA) | payer MEDICAID, SELFPAY | PROVIDERS: PCP Family Medicine | DX: Z48.811 Encounter for surgical aftercare following surgery on the nervous system (principal); M77.12 Lateral epicondylitis, left elbow; Z98.890 Other specified postprocedural states | CPT/HCPCS: 99212 ==

== ENCOUNTER 2024-11-13 15:13 | Outpatient (AMB) | payer MEDICAID, SELFPAY ==
--- NOTE | 2024-11-13 15:15 | A.OFFVIS_ITS ---
Vital Signs 11/13/24 15:19 Height 6 ft Weight 190 lb BMI 25.8 Intake Visit Reasons: OV Discuss L cubital/Lcarpal Intake Note: Porter is a 34 year old left hand dominant male who presents today to discuss surgical treatment of the left hand. States he continues to have CTS on and off through out the day mainly in his left hand. Allergies No Known Allergies Allergy (Verified 11/13/24 15:18) HPI HPI OV Discuss L cubital/Lcarpal: Details: Porter is a 34 year old left hand dominant male who presents today to discuss surgical treatment of the left hand. States he continues to have numbness and tingling in the ulnar nerve distribution of the left hand. Patient states that his symptoms have slightly worsened since previous evaluation. No other acute complaints or concerns at this time. Denies any numbness or tingling in the median nerve distribution. 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 Good APB muscle firing and good finger cross. Vascular: Capillary refill brisk. ROM: Patient can make a fist and extend all their digits. Skin: Well approximated and well healing incision site noted on the volar right wrist No lacerations or abrasions noted. General: No ecchymosis. No erythema or evidence of infection. Assessment & Plan Assessment & Plan (1) Cubital tunnel syndrome on left: Code(s): G56.22 - Lesion of ulnar nerve, left upper limb Category: Medical Plan 1. Left cubital tunnel syndrome Symptoms intermittent, daily, worse at night I educated the patient about the condition. I discussed both operative and nonoperative treatment options. The patient would like to proceed with surgery. The risks and benefits of operative treatment were discussed with the patient and the patient wishes to proceed with surgery. These risks include, but are not limited to, risk of damage to blood vessels, nerves, tendons, infection, recurrence, incomplete relief of preoperative symptoms, persistent pain, possible need for further surgery, and the risks associated with regional blocks and/or anesthesia. Plan is to take the patient to the operating room at some point in the next few weeks for the following procedures: 1. Left cubital tunnel release under general All of the preoperative paperwork including the consent was discussed today. All of the patient's questions were answered in the clinic today. The patient understands that they will be in contact with our surgical nurse practitioner to discuss scheduling their procedure. Patient denies diabetes, blood thinners, asthma, heart issues, lung issues, kidney issues, or current smoking. Coding Level of Care Code Est Pt Level 4 (39149) Diagnoses Cubital tunnel syndrome on left G56.22
[2024-11-13 15:19] VITALS: BMI 25.8
--- OUTSIDE RECORDS SUMMARY | 2024-11-13 16:03 | XMS_ITS | Clinical Summary ---
Author Organization [employer] Address [address] [facility] 7[address] [place] [address] Care Team Providers Care Machine Tool Designer Name Role Phone Taylor Iglesias MD Primary Care Provider Allergies No known active allergies Medications * [...] Once per day. Do not start before November 05, 2024. 56 Film 1 025 2024 Active Suboxone 8-2 MG SL filmIndication s:Opioid abuse (CMS/HCC) Place 2 Film under the tongue Once per day. Do not start before September 10, 2024. 56 Film 1 025 2024 Discontinued(R [...] 6:44 PM EST): [facility] medication for ADHD Assessment & Plan (02/14/2023 4:11 AM EDT): - [facility] medication for ADHD Assessment [...] support PLAN: 1. Follow up with [facility]: Recommended for follow-up: during OBAT appts 2. [...] with Dr. Dennis and CRS team in [place] Assessment & Plan (08/26/2023 11:27 AM EDT): - continue OBAT with Dr. Dennis and CRS team in [place] Assessment & Plan (03/03/2023 5:05 AM EDT): - continue OBAT with Dr. Dennis and CRS team in [place] Assessment & Plan (01/04/2023 9:32 AM EDT): [...] support PLAN: 1. Follow up with [facility]: Recommended for follow-up: during OBAT appts 2. Patient goal is to improve mental health and functioning 3. Behavioral Recommendations a. Connecting with [facility] b. [facility] follow up c. Use of coping skills provided Chronic low back pain 04/24/2021 Assessment & Plan (02/08/2023 11:07 AM EDT): -Continue chiropractic treatment -Rx Muscle relaxant Encounters Date Type Department Care Team Description 11/05/2024 9:00 AM EDT Clinical Support [facility] MED & PEDS [address] [place] [address] Kate Joshi RN Opioid type dependence, continuous (CMS/HCC) (Primary Dx) 11/05/2024 Travel 10/29/2024 Refill [facility] MEDICINE [address] [place] [address] Kate Joshi RN Opioid abuse (CMS/HCC) 09/10/2024 9:00 AM EDT Office Visit [facility] MED & PEDS [address] [place] [address] Javy Dennis MD Opioid type dependence, continuous (CMS/HCC) (Primary Dx) 09/10/2024 Travel 09/04/2024 Refill [facility] MEDICINE [address] [place] [address] Kate Joshi, ERIKA Opioid abuse (CMS/HCC) from Last 3 Months Immunizations Immunization Administration [...] with others, in a hotel, in a [facility], living outside on the street, on a [...] 77 07/09/2024 1:19 PM EST Temperature 36.4 C (97.5 F) 07/09/2024 1:19 PM EST Respiratory Rate 18 07/09/2024 1:19 PM EST Oxygen Saturation 98% 07/09/2024 1:19 PM EST Inhaled Oxygen Concentration - - Weight 108 kg (237 lb 3.2 oz) 07/09/2024 1:19 PM EST Height 182.9 cm (6') 03/20/2024 1:53 PM EST Body Mass Index 32.17 03/20/2024 1:53 PM EST Plan of Treatment Upcoming Encounters Date Type Department Care Team (Late st Contact Info) Description 12/31/2024 9:00 AM EDT Clinical Support [facility] MED & PEDS [address] [place] [address] Kate Joshi, RN Health Maintenance Due Date Last Done Comments Disability Screening 1991 Alcohol/Substance Use Screening 2003 Family Planning (PISQ) 2006 Pneumococcal Vaccine: Pediatrics (0 to 5 Years) and At-Risk Patients (6 to 49) Years (1 of 2 - PCV) 2010 COVID-19 Vaccine ( - season) 2024 11/03/2021, 01/20/2021, 12/09/2020 SDOH Screening 02/02/2024 02/01/2023 Depression Monitoring 11/22/2024 05/25/2024, 025 Tobacco Screening 03/20/2025 03/20/2024 Lipid Panel 07/16/2029 07/16/2024, 02/11/2023 DTaP/Tdap/Td Vaccines [...] on patient's age to complete this topic Goals Goal Patient Goal Type Associated Problems Recent Progress Patient-Stated? Author Continue serving as a living example of recovery. General Yes Kate Joshi RN Procedures Procedure Name Priority Date/Time Associated Diagnosis Comments POCT MIN-14 URINE DRUG SCREEN Routine 11/05/2024 9:01 AM EDT Opioid type dependence, continuous (CMS/HCC) POCT MIN-14 URINE DRUG SCREEN Routine 09/10/2024 9:19 AM EDT Opioid type dependence, continuous (CMS/HCC) HEPATITIS C AB W/REFL TO HCV RNA, QN, PCR Routine 07/16/2024 9:43 AM EST Routine screening for STI (sexually transmitted infection) HIV 1/2 ANTIGEN/ANTIBODY, FOURTH GENERATION W/RFL Routine 07/16/2024 9:43 AM EST Routine screening for STI (sexually transmitted infection) LIPID PANEL WITH REFLEX TO DIRECT LDL Routine 07/16/2024 9:43 AM EST Hypertriglyceridemia from Last 3 Months or Most Recently Relevant to Health Maintenance Results * POCT MIN-14 Urine Drug Screen (11/05/2024 9:01 AM EDT) Only the most recent of2 [...] obtained by clean catch procedure / Unknown 11/05/2024 9:01 AM EDT us Kennedi oMntez MD POINT OF CARE TEST ENTER/ED IT ORDERABLES Final Result * Lipid Panel with Reflex to Direct LDL (07/16/2024 9:43 AM EST) Triglycerides 91 <150 mg/dL [facility] Comment:Desirable Triglyceri de: less than 150 mg/dLBorderline High Triglyceride 150-199 mg/dLHigh Triglyceride: 200-499 mg/dLVery High Triglyceride: greater than or equal to 5OO mg/dL Cholesterol 140 <200 mg/dL [facility] Comment:Desirable Cholestero l: less than 200 mg/dLBorderline High Cholesterol: 200-239 mg/dLHigh Cholesterol: greater than 239 mg/dL LDL Cholesterol Calculated 75 <100 mg/dL [facility] Comment:Desirable LDL: less than 100 mg/dLNear Optimal/Above Optimal LDL: 110- 129 mg/dLBorderline High LDL: 130-159 mg/dLHigh LDL: 160-189 mg/dLVery High LDL: greater than or equal to 190 mg/dL HDL Cholesterol 47 >40 mg/dL [facility] Comment:Desirable HDL: great er than 40 mg/dL Note: This HDL assay may give artificially low results in patients with liver disease. Blood 07/16/2024 9:43 AM EST 07/16/2024 2:17 PM EST Taylor Iglesias MD LAB BLOOD ORDERABLES Final Resul t [facility] [address] [place] [phone] * (ABNORMAL) Hepatitis C Antibody with Reflex to HCV, RNA, Quantitative, Real- Time PCR (07/16/2024 9:43 AM EST) Hepatitis C Antibody Reactive( A) Nonreactive [facility] Comment:Presumptive evidence of antibodies to HCV. Blood Venous blood specimen / Unknown 07/16/2024 9:43 AM EST 07/16/2024 2:17 PM EST us Taylor Iglesias MD LAB BLOOD ORDERABLES Final Resul t Performing Organization Address [facility] de Phone Number [facility] [address] [place] [phone] * HIV-1/2 Antigen and Antibodies, Fourth Generation, with Reflexes (07/16/2024 9:43 AM EST) HIV AB/AG Nonreactive Nonreactive [facility] Comment:HIV-1 p24 Ag and/or HIV-1/HIV-2 Ab not detected.A test result that is nonreactive does not exclude thepossibility of exposure to or infection with HIV-1 and/orHIV-2. Nonreactive results in this assay for individualswith prior exposure to HIV-1 and/or HIV-2 may be due toantigen and antibody levels that are below the limit ofdetection of this assay.The [employer] HIV Ag/Ab Combo assay result andsupplemental assay results should be interpreted inconjunction with the patient's clinical presentation,history and other laboratory results. If the results areinconsistent with clinical evidence, additional testing issuggested to confirm the result. Blood Venous blood specimen / Unknown 07/16/2024 9:43 AM EST 07/16/2024 2:17 PM EST us Taylor Iglesias MD LAB BLOOD ORDERABLES Final Resul t Performing Organization Address [facility] Co de Phone Number [facility] [address] [place] [address] [phone] from Last 3 Months or Most Recently Relevant to Health Maintenance Insurance C3 Care Teams Machine Tool Designer Relationship Specialty Start Date End Date Taylor Iglesias MD [address] [place] [phone] PCP - General Family Medicine 12/29/22
== END 2024-11-13 15:28 | disposition home or self-care (01) ==
LOC: HO.HOS 15:13
PROVIDERS: PCP Family Medicine
DX: G56.22 Lesion of ulnar nerve, left upper limb (principal)
CPT/HCPCS: 99214

== ENCOUNTER → 2024-11-13 15:13 | Outpatient (BNVA) | payer MEDICAID, SELFPAY | PROVIDERS: PCP Family Medicine | DX: R20.0 Anesthesia of skin (principal); R20.2 Paresthesia of skin; G56.22 Lesion of ulnar nerve, left upper limb | CPT/HCPCS: 99212 ==

== ENCOUNTER 2024-11-28 15:59 | Outpatient (RCR) | payer MEDICAID, SELFPAY ==
--- NOTE | 2024-11-07 14:43 | MHC.OT.EP ---
[address] [phone] Occupational Therapy Plan of Care Patient Name: Porter Valles Date of Evaluation: 11/07/24 Diagnosis: L LATERAL EPICONDYLITIS Pain Location: 7/10 REST 10/10 WITH USE Pain Score: 7-10/10 Pain Scale Used: Numeric (0 - 10) Aggravating Factors: LIFTING, OUTSTRETCHED ARM WITH GRASPING WEIGHT Alleviating Factors: STRETCHING, HEAT (HOT SHOWERS), IBUPROFEN Assessment: MR JAKE VALLES REPORTS A TWO MONTH HISTORY OF L ELBOW PAIN. REPORTS DIFFICULTIES WITH PERFORMING IADLs, WORK RELATED TASKS AND LIFTING/ CARING FOR YOUNG CHILDREN. A 48% LIMITATION WAS REPORTED PER THE QUICK DASH ASSESSMENT. ONGOING SKILLED OT IS WARRANTED FOR SUSPECTED L LATERAL EPICONDYLITIS ADDRESSING PAIN, STRENGTH, JT PROTECTION/ ACTIVITY MODIFICATIONS AND ADL/ IADL RETRAINING. Frequency and Duration: The patient will be seen 2X/WEEK FOR 4 WEEKS Short Term Goals: SEE BELOW Tire Mold Tester Goals: IND HEP IND JT PROTECTION/ ACTIVITY MODIFICATIONS REPORT <4/10 PAIN WITH LIFTING >20 POUNDS WITH GOOD BODY MECHANICS QUICK DASH <20% Treatment Plan: Therapeutic Exercise Therapeutic Activity Home Exercise Program Splinting Neuro Re-ed Patient Education Desensitization/Sensory Re-ed Edema Control ADL Training Ultrasound NMES Iontophoresis Paraffin Fluidotherapy MHP Cold Packs Joint Mobilization Soft Tissue Mobilization Kinesiotaping Other (see comments) Electronically Signed By: ADIS DUNCAN OTR/L Please Sign and return to therapist. Thank you once again for your referral.
--- NOTE | 2024-12-14 12:17 | MHC.OT.DC ---
[address] [phone] F: [phone] Occupational Therapy Discharge Note Patient Name: Porter Valles Provider: Cecil Seay Diagnosis: L LATERAL EPICONDYLITIS Date of Evaluation: 11/07/24 Date of Discharge: 12/14/24 Treatments to Date: 5 Cancellations to Date: 3 No Shows to Date: 0 Discharge Status: Discharge Summary: MR JAKE VALLES HAD MADE SOME SMALL IMPROVEMENTS IN HIS L ELBOW PAIN. HIS WORK RELATED TASKS INCLUDED REPETITIVE TASKS AND MODIFYING BEHAVIORS WERE DISCUSSED. TRIAL OF IONTO AND K-TAPE WERE UTILIZED. HE IS NOW S/P CUBITAL TUNNEL RELEASE WITH DR WILLARD AND OT SERVICES WILL BE DISCHARGED AT THIS TIME. Electronically Signed By: ADIS DUNCAN OTR/L Reviewed/agree with student documentation: N/A Therapist: Please Sign and return to therapist, thank you for your referral.
== END 2024-12-14 12:15 | disposition home or self-care (01) ==
LOC: HO.OT 15:59
PROVIDERS: PCP Family Medicine
DX: M77.12 Lateral epicondylitis, left elbow (principal); M25.622 Stiffness of left elbow, not elsewhere classified
CPT/HCPCS: 97033; 97110; 97165

== ENCOUNTER 2024-12-06 05:59 | Day surgery (SDC) | payer MEDICAID, SELFPAY ==
[2024-12-04 13:04] VITALS: BMI 25.8
[2024-12-06 06:36] VITALS: BMI 28.4
[2024-12-06] MEDS: Lactated Ringers 1,000 ML 100 ML IVCONT (06:51)
[2024-12-06 06:54] VITALS: BP 116/61; PULSE 50; RESP 16; TEMP 36.5; O2SAT 97
--- NOTE | 2024-12-06 07:34 | P.OP_ITS ---
Operative Note Operative Note Date of Service: 12/06/24 Narrative: Operative Note Narrative: Preop diagnosis: 1. Left Cubital tunnel syndrome Postop diagnosis: Same Procedure: 1. Left Cubital Tunnel Release Surgeon: Bailey Zhang MD Garage Door Hanger: Anesthesia: General Anesthesia Findings: Thickening and fibrosis about the ulnar nerve at the cubital tunnel Implants: none Tourniquet time: 16 minutes EBL: 5.0 ml Specimen: none Drains: None Complications: None Disposition: Brought to the recovery room in stable condition Plan: Follow-up in 10-14 days for wound check, and suture removal Indications: The patient is 34 years old with left cubital tunnel syndrome . The risks and benefits of operative treatment, including but not limited to risk of damage to blood vessels, nerves, tendons, infection, recurrence, persistent pain or numbness, incomplete resolution of preoperative symptoms, or need for further surgery were discussed with the patient and they wished to proceed with surgery. Procedure: Once consent was obtained patient was brought back to the operating suite and placed in the operating table in a supine position. Perioperative antibiotics and anesthesia was administered by the anesthesia team. The limb w as prepped and draped in a standard surgical fashion, and a sterile tourniquet applied to the proximal aspect of the left upper extremity. The limb was elevated exsanguinated with Esmarch bandage and the tourniquet inflated to 250 mm of mercury for a total tourniquet time of 16 minutes. A 6 cm gently curved but longitudinally oriented incision was made centered over the cubital tunnel of the left upper extremity. Incision was made through the skin to the subcutaneous tissues using a # 15 Blade. I then dissected down to the level of the medial epicondyle and the cubital tunnel using tenotomy scissors. Care was taken to protect the medial antebrachial cutaneous nerve. The ulnar nerve was identified just posterior to the medial intermuscular septum. The ulnar nerve was released in a proximal to distal direction using tenotomy in iris scissors while directly visualizing and protecting the ulnar nerve. Thickening and fibrosis was appreciated about the ulnar nerve as it passed through the cubital tunnel. The ulnar nerve was assessed as I passed the elbow through full flexion and extension and was found to remain stable within its groove. At this point the tourniquet was deflated and hemostasis obtained with a brief period of local pressure and bipolar electrocautery. The wound was copiously irrigated with normal saline. The subcutaneous layer was closed with 4-0 Vicryl suture, and the skin edges were reapproximated with 5-0 nylon suture. The wound was infiltrated with some Lidocaine with epinephrine for postop pain control and sterile dressings were applied. The patient appears to have tolerated the procedure well and with no complications. All digits were well vascularized at the conclusion of the case.
--- NOTE | 2024-12-06 07:34 | MHC.SHP ---
Pre-Procedural Eval Section A - 24 Hr Update-Section A only Date of Service: 12/06/24 The patient is an INPATIENT: No Changes since office visit: No Cold of Flu in the past 2 weeks, No New Medical Problems, No Changes in Medication and No Patient answered all questions The patient has been examined within 24 hours of the surgical procedure. The History & Physical has been completed within 30 days and I have reviewed it.: Yes Section B - Complete if H&P > 30 days Chief Complaint: Lesion of ulnar nerve, left upper limb Allergies: Allergies Allergy/AdvReac Type Severity Reaction Status Date / Time No Known Allergies Allergy Verified 12/06/24 06:42 Plan I have reviewed the history and physical and performed a pertinent physical examination on my patient. No changes have occurred unless specified. Time Spent With Patient Time: Total time managing care of this patient today ____ minutes.
--- NOTE | 2024-12-06 08:29 | P.CONAN_ITS ---
HPI - Anesthesia Eval Consult details Narrative: cubital tunnel PMFSH Active Problems Active Problems: All Active Problems Cubital tunnel syndrome on left (Acute) Left lateral epicondylitis (Acute) Right carpal tunnel syndrome (Acute) Past Medical History Medical History Drug abuse Family History Family history of problems with anesthesia: No Surgical History History of Problems with Anesthesia: No Social History Social History Patient Tobacco Use Status: Current everyday Tobacco user Tobacco use type: Cigarette Cigarette Packs Per Day: 0.5 Cigarettes Per Day: 10.0 Smoked in Last 30 Days: Yes Use of substances other than those prescribed or required for medical reasons: Yes Substance Use Frequency: Daily Have you been hit, kicked, punched, or otherwise hurt by someone within the past year? 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 Meds Allergies Allergy/AdvReac Type Severity Reaction Status Date / Time No Known Allergies Allergy Verified 12/06/24 06:42 Active Medications: Current Medications Lactated Ringer's (Lr) 1,000 mls @ 100 mls/hr IVCONT .Q10H ERIC Last Admin: 12/06/24 06:51 Dose: 100 mls/hr Home Medications ?Medication ?Instructions ?Recorded ?Confirmed ?Last Taken ?Type buprenorphine 8 mg-naloxone 2 mg 2 film sublingual DEMETRIUS LY 09/11/24 12/06/24 12/06/24 05:05 History sublingual film (Suboxone) Exam Height,Weight and Vital Signs: Height 6 ft Weight 95.1 kg Last Vital Signs Temp 97.7 F 12/06/24 06:54 Pulse 50 12/06/24 06:54 Resp 16 12/06/24 06:54 BP 116/61 12/06/24 06:54 Pulse Ox 97 12/06/24 06:54 O2 Del Method Room Air 12/06/24 06:54 Airway Mallampati Class: II TM Dist: >3cm Neck ROM: Full Heart: rrr Lungs: cta Assessment and Plan Assessment Anesthesia Assessment: Anesthesia Plan Discussed and Chart Reviewed Final Anesthetic Review Family History of Problems with Anesthesia: No History of Problems with Anesthesia: No ASA Class: II (heavy marihuana and cig use, last this AM at 4 per pt) Final Preanesthetic Review: No Changes in Pt Med Stat, Meds/Allgs Chart Reviewed, Consent Obtained/Reviewed and Anes Risks/Benef Reviewed Patient Risk: Intermediate Procedure Risk: Intermediate Anesthetic Plan Anesthetic Plan: GA Disposition: Standard PACU
[2024-12-06 08:44] VITALS: BP 127/50; PULSE 61; RESP 16; TEMP 36.2; O2SAT 97
[2024-12-06 08:49] VITALS: BP 129/52; PULSE 63; RESP 16; O2SAT 100
[2024-12-06 08:54] VITALS: BP 127/57; PULSE 62; RESP 16; O2SAT 96
[2024-12-06 08:59] VITALS: BP 132/58; PULSE 68; RESP 16; O2SAT 95
[2024-12-06 09:14] VITALS: BP 117/71; PULSE 60; RESP 16; TEMP 36.2; O2SAT 97
--- NOTE | 2024-12-06 09:47 | PC.NURSE ---
PATIENT'S PRESCRIBED PAIN MEDICATION ON HOLD IN THE PHARMACY HERE AT [facility]. PATIENT ON SUBOXONE. PHARMACY TO CALL PATIENT ONCE ISSUE RESOLVED. PATIENT OK WITH THAT.
== END 2024-12-06 09:46 | disposition home or self-care (01) ==
PROVIDERS: PCP Family Medicine; Visit Provider Orthopaedic Surgery
PROC: (CPT 64718; principal; 2024-12-06 07:30)
DX: G56.22 Lesion of ulnar nerve, left upper limb (principal); R20.0 Anesthesia of skin; R20.2 Paresthesia of skin; F19.21 Other psychoactive substance dependence, in remission; Z79.891 Long term (current) use of opiate analgesic; F17.210 Nicotine dependence, cigarettes, uncomplicated
CPT/HCPCS: 64718; J0131; J0330; J0690; J1100; J2003; J2004; J2405; J2704; J2795; J3010

== ENCOUNTER → 2024-12-06 05:59 | Outpatient (BNV) | payer MEDICAID, SELFPAY | PROVIDERS: PCP Family Medicine; Visit Provider Orthopaedic Surgery | DX: G56.22 Lesion of ulnar nerve, left upper limb (principal) | CPT/HCPCS: 64718 ==

== ENCOUNTER 2024-12-19 14:36 | Outpatient (AMB) | payer MEDICAID, SELFPAY ==
[2024-12-19 14:59] VITALS: BMI 28.3
--- NOTE | 2024-12-19 14:59 | A.OFFVIS_ITS ---
Vital Signs 12/19/24 14:59 Height 6 ft Weight 209 lb BMI 28.3 Intake Visit Reasons: PO LT cubital 12/06/24 AR Intake Note: Porter is a 34 year old left hand dominant male who presents today for their first post-operative visit status post left cubital tunnel release, DOS: 12/06/[address] Zhang. Patient reports discomfort along the medial aspect of the forearm. He denies numbness, tingling, finger locking. Sutures removed and steri strips applied. Allergies No Known Allergies Allergy (Verified 12/19/24 15:10) HPI HPI PO LT cubital 12/06/24 AR: Details: Porter is a 34 year old left hand dominant male who presents today for their firs t post-operative visit status post left cubital tunnel release, DOS: 12/06/[address] Zhang. Patient reports discomfort along the medial aspect of the forearm. He denies numbness, tingling, finger locking. Sutures removed and steri strips applied. 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 Good APB muscle firing and good finger cross. Vascular: Capillary refill brisk. ROM: Patient can make a fist and extend all their digits. Skin: Well approximated and well healing incision site noted on the medial aspect of the left elbow No lacerations or abrasions noted. General: No ecchymosis. No erythema or evidence of infection. Assessment & Plan Assessment & Plan (1) Cubital tunnel syndrome on left: Code(s): G56.22 - Lesion of ulnar nerve, left upper limb Category: Medical Plan 1. Status post left cubital tunnel release DOS 12/06/2024 Patient appears to be recovering very well postoperatively Patient is educated about the typical recovery course No further acute follow-up indicated, as the patient appears to be recovering very well Patient understands this is amenable to this plan Follow-up as needed Coding Level of Care Code Global (43437) Diagnoses Cubital tunnel syndrome on left G56.22
--- OUTSIDE RECORDS SUMMARY | 2024-12-19 15:02 | XMS_ITS | Clinical Summary ---
Author Organization [employer] Address [address] [facility] [address] [place] [address] Care Team Providers Care Room Service Food Service Attendant Name Role Phone Taylor Iglesias MD Primary Care Provider [phone] Allergies No known active allergies Medications * This document contains information received from the source organization and may not represent a complete record from that organization. naloxone (Narcan) 4 mg/0.1 mL nasal spray Administer 0.1 mL into affected nostril(s). 1 Active docusate sodium (Colace) 100 MG capsule Take 100 mg by mouth if needed for constipation. Active ciclopirox (Penlac) 8 % solution Apply topically at bedtime. 6 mL 3 3 Active cyclobenzaprine (Flexeril) 10 MG tablet Take 1 tablet (10 mg) by mouth if needed at bedtime for muscle spasms. 30 tablet 3 3 Active Blood Pressure Monitor kit Check blood pressure once daily and as needed 1 kit 3 Active hydrocortisone (Anusol-HC) 25 MG suppository Insert once or twice daily. Do not use longer than 1 week. 12 suppository 3 Active Diclofenac Sodium 1 % gel Apply to affected area once or twice daily as needed for pain 150 g 3 4 Active albuterol (ProAir HFA) 108 (90 Base) MCG/ACT inhaler Inhale 2 puffs every 4 (four) hours. 18 g 1 4 Active amphetamine-dex troamphetamine XR (Adderall XR) 10 MG 24 hr capsule Take 1 capsule (10 mg) by mouth in the morning. Do not crush or chew. 30 capsule 4 Active cetirizine (ZyrTEC) 10 MG tablet Take 1 tablet (10 mg) by mouth Once per day. 90 tablet 3 4 Active fluticasone (Flonase) 50 MCG/ACT nasal spray Administer 1-2 sprays into each nostril Once per day. Shake gently. Before first use, prime pump. After use, clean tip and replace cap. 16 g 2 4 025 Active Suboxone 8-2 MG SL filmIndications :Opioid abuse (CMS/HCC) Place 2 Film under the tongue Once per day. Do not start before November 05, 2024. 56 Film 1 5 025 Active Active Problems Problem Noted Date Diagnosed Date [...] This Visit Other Opioid abuse, in remission ([facility]/HCC) EVGENY (generalized anxiety disorder) Patient ready to address current needs Yes Strengths include willing to seek support PLAN: 1. Follow up with [facility]: Recommended for follow-up: during OBAT appts 2. [...] with Dr. Dennis and CRS team in [place] Assessment & Plan (08/26/2023 11:27 AM EDT): - continue OBAT with Dr. Dennis and CRS team in [place] Assessment & Plan (03/03/2023 5:05 AM EDT): - continue OBAT with Dr. Dennis and CRS team in [place] Assessment & Plan (01/04/2023 9:32 AM EDT): [...] benefit from keeping connecting with - and [facility] follow up for support. At this time Porter Hinton meets criteria for Visit Diagnoses: Problem List Items Addressed This Visit Other Opioid abuse, in remission ([facility]) EVGENY (generalized anxiety disorder) Patient ready to address current needs Yes Strengths include willing to seek support PLAN: 1. Follow up with [facility]: Recommended for follow-up: during OBAT appts 2. [...] Description 11/05/2024 9:00 AM EDT Clinical Support [facility] [address] [place] [address] Kate Joshi, ERIKA Opioid type dependence, continuous (CMS/HCC) (Primary Dx) 11/05/2024 Travel 10/29/[address] [facility] [address], [place] [phone] Kate Joshi, RN Opioid abuse (CMS/HCC) from Last 3 Months [...] Description 12/31/2024 9:00 AM EDT Clinical Support [facility] [address] [place] [address] Kate Joshi, RN Health Maintenance Due Date Last Done Comments Disability Screening 1991 Alcohol/Substance Use Screening 2003 Family Planning (PISQ) 2006 HPV Vaccines (1 - Male 3-dose series) 2006 Pneumococcal Vaccine: Pediatrics (0 to 5 Years) and At-Risk Patients (6 to 49) Years (1 of 2 - PCV) 2010 COVID-19 Vaccine (4 - season) 2024 11/03/2021, 01/20/2021, 12/09/2020 SDOH Screening 02/02/2024 02/01/2023 Depression Monitoring 11/22/2024 05/25/2024, 025 Influenza Vaccine (#1) 2025 , 02/07/2023, 03/15/2022, Additional history exists Tobacco Screening 03/20/2025 03/20/2024 Lipid Panel 07/16/2029 [...] Hepatitis B Vaccines Completed 08/09/2023, 03/08/2023, 02/08/2023 HIV Screening Completed 07/16/2024, 02/20/2021 Hepatitis C [...] Urine Drug Screen (11/05/2024 9:01 AM EDT) THC Positive Cocaine Screen, Urine [...] procedure / Unknown 11/05/2024 9:01 AM EDT Kennedi Montez MD POINT OF CARE TEST ENTER/ED IT ORDERABLES Final Result * Lipid Panel with Reflex to Direct LDL (07/16/2024 9:43 AM EST) Triglycerides 91 <150 mg/dL [facility] Comment:Desirable Triglyceri de: less than 150 mg/dLBorderline High Triglyceride 150-199 mg/dLHigh Triglyceride: 200-499 mg/dLVery High Triglyceride: greater than or equal to 5OO mg/dL Cholesterol 140 <200 mg/dL [facility] Comment:Desirable Cholestero l: less than 200 mg/dLBorderline High Cholesterol: 200-239 mg/dLHigh Cholesterol: greater than 239 mg/dL LDL Cholesterol Calculated 75 <100 mg/dL [facility] Comment:Desirable LDL: less than 100 mg/dLNear Optimal/Above Optimal LDL: 110- 129 mg/dLBorderline High LDL: 130-159 mg/dLHigh LDL: 160-189 mg/dLVery High LDL: greater than or equal to 190 mg/dL HDL Cholesterol 47 >40 mg/dL [facility] Comment:Desirable HDL: great er than 40 mg/dL Note: This HDL assay may give artificially low results in patients with liver disease. Blood 07/16/2024 9:43 AM EST 07/16/2024 2:17 PM EST Taylor Iglesias MD LAB BLOOD ORDERABLES Final Resul t Performing Organization Address [facility]/ZIP Co de Phone Number [facility] [address] [place] [phone] * (ABNORMAL) Hepatitis C Antibody with Reflex to HCV, RNA, Quantitative, Real- Time PCR (07/16/2024 9:43 AM EST) Hepatitis C Antibody Reactive( A) Nonreactive [facility] Comment:Presumptive evidence of antibodies to HCV. Blood Venous blood specimen / Unknown 07/16/2024 9:43 AM EST 07/16/2024 2:17 PM EST Taylor Iglesias MD LAB BLOOD ORDERABLES Final Resul t Performing Organization Address City/[facility]/ZIP Co de Phone Number [facility] [address] [place] [phone] * HIV-1/2 Antigen and Antibodies, Fourth Generation, with Reflexes (07/16/2024 9:43 AM EST) HIV AB/AG Nonreactive Nonreactive [facility] Comment:HIV-1 p24 Ag and/or HIV-1/HIV-2 Ab not detected.A test result that is nonreactive does not exclude thepossibility of exposure to or infection with HIV-1 and/orHIV-2. Nonreactive results in this assay for individualswith prior exposure to HIV-1 and/or HIV-2 may be due toantigen and antibody levels that are below the limit ofdetection of this assay.[employer] HIV Ag/Ab Combo assay result andsupplemental assay results should be interpreted inconjunction with the patient's clinical presentation,history and other laboratory results. If the results areinconsistent with clinical evidence, additional testing issuggested to confirm the result. Blood Venous blood specimen / Unknown 07/16/2024 9:43 AM EST 07/16/2024 2:17 PM EST us Taylor Iglesias MD LAB BLOOD ORDERABLES Final Resul t [facility] [address] [place] [phone] from Last 3 Months or Most Recently Relevant to Health Maintenance Insurance [facility] C3 Care Teams Room Service Food Service Attendant Relationship Specialty Start Date End Date Taylor Iglesias MD [address] [place] [phone] PCP - General Family Medicine 12/29/22
== END 2024-12-19 15:18 | disposition home or self-care (01) ==
LOC: HO.HOS 14:36
PROVIDERS: PCP Family Medicine
DX: G56.22 Lesion of ulnar nerve, left upper limb (principal)
CPT/HCPCS: 99024

== ENCOUNTER → 2024-12-19 14:36 | Outpatient (BNVA) | payer MEDICAID, SELFPAY | PROVIDERS: PCP Family Medicine | DX: G56.22 Lesion of ulnar nerve, left upper limb (principal) | CPT/HCPCS: 99212 ==